=== PATIENT | female | born 1955 | race Caucasian/White ===

== ENCOUNTER 2020-04-07 12:41 | Day surgery (SDC) | payer MEDICARE, OTHER, SELFPAY ==
[2020-04-01 16:34] VITALS: BMI 37.8
--- NOTE | 2020-04-02 14:36 | HO.ANESPROP2 ---
Documented by User: Cherie Davidson 04/02/20 14:40 HPI - Anesthesia Eval Consult details Narrative: 64yo EGD: Barretts, GERD *multiple med allergies* PMFSH Past Medical History Medical History Arthritis Chronic back pain Depression GERD (gastroesophageal reflux disease) Hiatal hernia High cholesterol History of Koo's esophagus History of Meckel's diverticulum History of pernicious anemia Hx of Clostridium difficile infection Hx of hepatitis Hx of pancreatitis Hx of ventricular tachycardia IBS (irritable bowel syndrome) Lyme disease Migraine Multiple sclerosis Muscle spasm OCD (obsessive compulsive disorder) Surgical History Surgical History History of bowel resection History of ureter repair Hx of appendectomy Hx of breast biopsy Hx of cholecystectomy Hx of elbow surgery Hx of esophagogastroduodenoscopy Hx of hemorrhoidectomy Hx of hysterectomy Hx of removal of ovary Social History Social History Smoking Status: Current every day smoker Years Smoked: 40 Smoked in Last 30 Days: Yes Patient Interested in Nicotine Replacement: No Patient Given Instructions on How to Stop Smoking: Yes Date Education Initiated: 04/01/20 Second Hand Smoke Exposure: No Use of substances other than those prescribed or required for medical reasons: No Advance Directives: No Advance Directives Information Provided: No Advance Directives on File: No Recently lost weight without trying: No Meds Allergies Allergy/AdvReac Type Severity Reaction Status Date / Time scallops Allergy Severe HIVES, Unverified 04/01/20 15:53 THROAT CLOSING, VOMITING shrimp Allergy Severe HIVES, Unverified 04/01/20 15:53 THROAT CLOSES DIFF BREATHING celecoxib [From CELEBREX] Allergy Unknown HIVES Unverified 04/01/20 15:53 chlorzoxazone Allergy Unknown hives Verified 04/01/20 15:53 [Parafon Forte DSC] meperidine [Demerol] Allergy Unknown hives Verified 04/01/20 15:53 metoclopramide [Reglan] Allergy Unknown hives Verified 04/01/20 15:53 morphine [MORPHINE] Allergy Unknown HIVES Unverified 03/06/20 14:37 pentazocine [Talwin] Allergy Unknown hives Verified 04/01/20 15:53 Sulfa (Sulfonamide Allergy Unknown hives Verified 04/01/20 15:53 Antibiotics) sulfamethoxazole Allergy Unknown HIVES Unverified 04/01/20 15:53 [From BACTRIM] trimethoprim [From BACTRIM] Allergy Unknown HIVES Unverified 04/01/20 15:53 glatiramer (copolymer 1) Allergy Anaphylaxis Verified 04/01/20 15:54 [From Copaxone] ocrelizumab [From Ocrevus] Allergy Anaphylaxis Verified 04/01/20 15:55 DISOLVABLE SUTURES Allergy Unknown SWELLING Uncoded 04/01/20 15:53 Home Medications Medication Instructions Recorded Confirmed Type azithromycin 500 mg PO DAILY 04/01/20 04/01/20 History cyanocobalamin (vitamin B-12) 1,000 mcg IM QMONTH 04/01/20 04/01/20 History [B-12 Kit] diazepam [Valium] 10 mg PO BEDTIME 04/01/20 04/01/20 History diphenoxylate-atropine 1 tab PO DAILY PRN 04/01/20 04/01/20 History ergocalciferol (vitamin D2) 1,250 mcg PO QWEEK 04/01/20 04/01/20 History [Vitamin D2] nadolol [Corgard] 80 mg PO DAILY 04/01/20 04/01/20 History omeprazole 40 mg PO DAILY 04/01/20 04/01/20 History pregabalin [Lyrica] 150 mg PO BID 04/01/20 04/01/20 History sertraline [Zoloft] 100 mg PO DAILY 04/01/20 04/01/20 History simvastatin 40 mg PO DAILY 04/01/20 04/01/20 History tizanidine [Zanaflex] 8 mg PO BEDTIME 04/01/20 04/01/20 History Exam Exam Date and Time: April 02, 2020 1436 Height,Weight and Vital Signs: Height 5 ft 6 in Weight 106.141 kg Assessment and Plan Assessment Anesthesia Assessment: Chart Reviewed Documented by User: Hector Daniel 04/07/20 13:40 PMFSH Past Medical History Medical History Arthritis Chronic back pain Depression GERD (gastroesophageal reflux disease) Hiatal hernia High cholesterol History of Koo's esophagus History of Meckel's diverticulum History of pernicious anemia Hx of Clostridium difficile infection Hx of hepatitis Hx of pancreatitis Hx of ventricular tachycardia IBS (irritable bowel syndrome) Lyme disease Migraine Multiple sclerosis Muscle spasm OCD (obsessive compulsive disorder) Surgical History Surgical History History of bowel resection History of ureter repair Hx of appendectomy Hx of breast biopsy Hx of cholecystectomy Hx of elbow surgery Hx of esophagogastroduodenoscopy Hx of hemorrhoidectomy Hx of hysterectomy Hx of removal of ovary Social History Social History Smoking Status: Current every day smoker Years Smoked: 40 Smoked in Last 30 Days: Yes Patient Interested in Nicotine Replacement: No Patient Given Instructions on How to Stop Smoking: Yes Date Education Initiated: 04/01/20 Second Hand Smoke Exposure: No Use of substances other than those prescribed or required for medical reasons: No Advance Directives: No Advance Directives Information Provided: No Advance Directives on File: No Recently lost weight without trying: No Meds Allergies Allergy/AdvReac Type Severity Reaction Status Date / Time scallops Allergy Severe HIVES, Unverified 04/01/20 15:53 THROAT CLOSING, VOMITING shrimp Allergy Severe HIVES, Unverified 04/01/20 15:53 THROAT CLOSES DIFF BREATHING celecoxib [From CELEBREX] Allergy Unknown HIVES Unverified 04/01/20 15:53 chlorzoxazone Allergy Unknown hives Verified 04/01/20 15:53 [Parafon Forte DSC] meperidine [Demerol] Allergy Unknown hives Verified 04/01/20 15:53 metoclopramide [Reglan] Allergy Unknown hives Verified 04/01/20 15:53 morphine [MORPHINE] Allergy Unknown HIVES Unverified 03/06/20 14:37 pentazocine [Talwin] Allergy Unknown hives Verified 04/01/20 15:53 Sulfa (Sulfonamide Allergy Unknown hives Verified 04/01/20 15:53 Antibiotics) sulfamethoxazole Allergy Unknown HIVES Unverified 04/01/20 15:53 [From BACTRIM] trimethoprim [From BACTRIM] Allergy Unknown HIVES Unverified 04/01/20 15:53 glatiramer (copolymer 1) Allergy Anaphylaxis Verified 04/01/20 15:54 [From Copaxone] ocrelizumab [From Ocrevus] Allergy Anaphylaxis Verified 04/01/20 15:55 DISOLVABLE SUTURES Allergy Unknown SWELLING Uncoded 04/01/20 15:53 Home Medications Medication Instructions Recorded Confirmed Type azithromycin 500 mg PO DAILY 04/01/20 04/01/20 History cyanocobalamin (vitamin B-12) 1,000 mcg IM QMONTH 04/01/20 04/01/20 History [B-12 Kit] diazepam [Valium] 10 mg PO BEDTIME 04/01/20 04/01/20 History diphenoxylate-atropine 1 tab PO DAILY PRN 04/01/20 04/01/20 History ergocalciferol (vitamin D2) 1,250 mcg PO QWEEK 04/01/20 04/01/20 History [Vitamin D2] nadolol [Corgard] 80 mg PO DAILY 04/01/20 04/01/20 History omeprazole 40 mg PO DAILY 04/01/20 04/01/20 History pregabalin [Lyrica] 150 mg PO BID 04/01/20 04/01/20 History sertraline [Zoloft] 100 mg PO DAILY 04/01/20 04/01/20 History simvastatin 40 mg PO DAILY 04/01/20 04/01/20 History tizanidine [Zanaflex] 8 mg PO BEDTIME 04/01/20 04/01/20 History Exam Airway Mallampati Class: III TM Dist: >3cm Neck ROM: Full
[2020-04-07 13:02] VITALS: BP 114/37; PULSE 58; RESP 18; TEMP 36.2; O2SAT 96
[2020-04-07] MEDS: Lactated Ringers 1,000 ML 100 ML IVCONT (13:17)
[2020-04-07 14:14] VITALS: BP 102/54; PULSE 60; RESP 16; TEMP 36.7; O2SAT 97
--- NOTE | 2020-04-07 14:26 | PM.OP ---
Brief Operative Note Date of procedure: 04/07/20 Pre-op diagnosis: GERD,Koo's Post-op diagnosis: other (Same, hiatal hernia, gastric ulcer) Procedure: EGD with biopsies Surgeon: Rafat Fernandez Anesthesia: MAC Estimated blood loss (mL): 5.0 Pathology: other (A. EGJ at 35cm B. Gastric antrum) Condition: stable Disposition: PACU
--- NOTE | 2020-04-07 14:28 | PM.OP ---
Brief Operative Note Date of procedure: 04/07/20 Surgeon: Rafat Fernandez Estimated blood loss (mL): 5.0
[2020-04-07 14:29] VITALS: BP 125/71; PULSE 58; RESP 13; O2SAT 98
--- NOTE | 2020-04-07 14:37 | OP_ITS ---
SURGEON: Rafat Fernandez MD INDICATIONS: The patient presents for evaluation of gastroesophageal reflux and history of Koo's esophagus. Full consent has been obtained from her for that, including risks of bleeding and perforation. PREOPERATIVE DIAGNOSIS: POSTOPERATIVE DIAGNOSIS: PROCEDURE PERFORMED: Esophagogastroduodenoscopy with biopsy. ESTIMATED BLOOD LOSS: COMPLICATIONS: ANESTHESIA: Monitored anesthesia care. ASSISTANTS: SPECIMENS: PREOPERATIVE DIAGNOSES: Gastroesophageal reflux and history of Koo's esophagus. POSTOPERATIVE DIAGNOSES: Gastroesophageal reflux and history of Koo's esophagus, hiatal hernia, gastric ulcer, gastritis. DESCRIPTION OF PROCEDURE: The patient was placed in the left lateral decubitus position. The Olympus video gastroscope was passed in the posterior oropharynx and upper esophagus under direct vision. The scope was passed slowly to the distal esophagus. The gastroesophageal junction appeared at 35 cm. There was some slight irregularity consistent with reflux and probably small areas of Koo's mucosa. There was no esophagitis, mass, nor any sign of stricture. The scope entered the stomach. There was a small to moderate-sized hiatal hernia. The scope was advanced to the pylorus and duodenum cannulated the descending portion. The duodenum including the bulb appeared normal without mass or ulceration. The scope was withdrawn back into the stomach. The gastric antrum and body had some changes of a chronic appearing gastritis. In the body of the stomach along the greater curvature, was an approximately 6 to 8 mm ulcer, which appeared very benign and inactive. There was no visible vessel nor bleeding. There was good peristalsis. I did obtain multiple biopsies from the gastric antrum to inspect for H pylori. Given the benign appearance of the ulcer, biopsies were not obtained from it. The scope was retroflexed visualizing the proximal stomach carefully which appeared normal, without any sign of mass or ulceration. The scope was straightened. The scope was withdrawn back into the esophagus. Multiple biopsies were obtained from the gastroesophageal junction at 35 cm. Proximal to this, the esophageal mucosa appeared normal. Scope was withdrawn from the patient. She tolerated the procedure well and was returned to recovery area in stable condition. IMPRESSION: 1. Hiatal hernia, gastroesophageal reflux, history of Koo's esophagus. 2. Small gastric ulcer. 3. Gastritis, rule out Helicobacter pylori. PLAN: The results of the biopsies will be checked. Given the finding of the ulcer, I shall increase the omeprazole to 40 mg daily for 1 month and then back to just once a day thereafter for symptomatic relief of her reflux. She was taking some Aleve for her back pain and I did advise her to avoid all aspirin and NSAIDs going forward. Assuming the biopsies from the Koo's esophagus are negative for dysplasia, I would recommend a repeat upper endoscopy in 3 years. If Helicobacter pylori is present in the gastric biopsies, I would recommend treating that at some point as well. She did not want to do a screening colonoscopy, but will be doing a Cologuard test by her report and I did advise her to let me know the results of that. If it is positive, she would clearly need a colonoscopy. This has been discussed with her mother. MD PASCUAL Kelsey/CAMERON / [phone]
--- NOTE | 2020-04-07 15:04 | HO.POSTANES ---
Post Anesthesia Evaluation Post Anesthesia Evaluation Vital Signs: Vital Signs Temp Pulse Resp BP Pulse Ox 04/07/20 14:29 98.1 F 58 13 125/71 98 04/07/20 14:14 98.1 F 60 16 102/54 L 97 04/07/20 13:02 97.2 F 58 18 114/37 L 96 Anesthesia: Monitored Mental Status: Awake Pain Control: Satisfactory Nausea/Vomiting: None Hydration: Adequate Anesthesia-Related Issues: No Anes. Related Issues
== END 2020-04-07 15:04 | disposition home or self-care (01) ==
PROVIDERS: PCP Internal Medicine; Visit Provider Internal Medicine
PROC: 0DJ08ZZ Inspection of Upper Intestinal Tract, Via Natural or Artificial Opening Endoscopic (ICD-10-PCS; CPT 43235; principal; 2020-04-07 13:30)
DX: K21.9 Gastro-esophageal reflux disease without esophagitis (principal); K22.70 Barrett's esophagus without dysplasia; K44.9 Diaphragmatic hernia without obstruction or gangrene; K25.9 Gastric ulcer, unspecified as acute or chronic, without hemorrhage or perforation; K29.70 Gastritis, unspecified, without bleeding; K58.9 Irritable bowel syndrome, unspecified; Z90.49 Acquired absence of other specified parts of digestive tract; G35 Multiple sclerosis; Z79.899 Other long term (current) drug therapy; Z88.8 Allergy status to other drugs, medicaments and biological substances; Z88.2 Allergy status to sulfonamides; Z91.013 Allergy to seafood
CPT/HCPCS: 43239; 88305; 88342

== ENCOUNTER 2020-04-10 14:36 | Outpatient (REF) | payer MEDICARE, OTHER, SELFPAY ==
--- NOTE | 2020-04-10 14:43 | MM_ITS ---
EXAMINATION: MM SCREENING DIGITAL BREAST TOMOSYNTHESIS, BILATERAL CLINICAL INFORMATION: Screening. Asymptomatic. The lifetime risk of breast cancer based on the Tyrer-Cuzick Model is 4%. COMPARISON: Mammography: 04/03/2019, 03/23/2018 TECHNIQUE: Digital breast tomosynthesis is performed in both the craniocaudal and mediolateral oblique views along with computer-aided detection (CAD). Synthesized 2D images are generated from the tomosynthesis. FINDINGS: The breasts are almost entirely fatty (ACR BI-RADS breast composition Category a). There are no significant masses, abnormal calcifications, or other abnormalities. The axilla and skin contours are unremarkable. MM/MM tomosynthesis screening BI IMPRESSION: No mammographic evidence of malignancy. ASSESSMENT: BI-RADS 1: Negative RECOMMENDATION: Routine annual mammography screening. This patient's information was entered into a reminder system with a target due date for their next mammogram.
== END 2020-04-10 14:37 | disposition home or self-care (01) ==
LOC: HO.MAMMO 14:36
PROVIDERS: PCP Internal Medicine; Visit Provider Internal Medicine
DX: Z12.31 Encounter for screening mammogram for malignant neoplasm of breast (principal)
CPT/HCPCS: 77063; 77067

== ENCOUNTER 2021-04-22 12:59 | Outpatient (REF) | payer MEDICARE, OTHER, SELFPAY ==
--- NOTE | ~2021-04-22 | MM_ITS ---
EXAMINATION: MM SCREENING DIGITAL BREAST TOMOSYNTHESIS, BILATERAL CLINICAL INFORMATION: Screening. Asymptomatic. The lifetime risk of breast cancer based on the Tyrer-Cuzick Model is 7%. COMPARISON: Mammography: 04/10/2020, 04/03/2019, 03/23/2018 TECHNIQUE: Digital breast tomosynthesis is performed in both the craniocaudal and mediolateral oblique views along with computer-aided detection (CAD). Synthesized 2D images are generated from the tomosynthesis. FINDINGS: The breasts are almost entirely fatty (ACR BI-RADS breast composition Category a). There are no significant masses, abnormal calcifications, or other abnormalities. There is a stable macrolobulated nodule posterior 12:00 right breast similar to prior studies, possibly intraparenchymal node or fibroadenoma. There is no developing density. No significant changes. MM/MM tomosynthesis screening BI IMPRESSION: No mammographic evidence of malignancy. ASSESSMENT: BI-RADS 2: Benign RECOMMENDATION: Routine annual mammography screening. This patient's information was entered into a reminder system with a target due date for their next mammogram.
== END 2021-04-22 13:00 | disposition home or self-care (01) ==
LOC: HO.MAMMO 12:59
PROVIDERS: PCP Internal Medicine; Visit Provider Internal Medicine
DX: Z12.31 Encounter for screening mammogram for malignant neoplasm of breast (principal)
CPT/HCPCS: 77063; 77067

== ENCOUNTER 2022-04-28 13:02 | Outpatient (REF) | payer MEDICARE, SELFPAY ==
--- NOTE | ~2022-04-28 | MM_ITS ---
EXAMINATION: MM SCREENING DIGITAL BREAST TOMOSYNTHESIS, BILATERAL CLINICAL INFORMATION: Screening. Asymptomatic. COMPARISON: Mammography: 04/22/2021, 04/10/2020, 04/03/2019, 03/23/2018 TECHNIQUE: Digital breast tomosynthesis is performed in both the craniocaudal and mediolateral oblique views along with computer-aided detection (CAD). Synthesized 2D images are generated from the tomosynthesis. FINDINGS: The breasts are almost entirely fatty (ACR BI-RADS breast composition Category a). Background stromal markings are stable. No developing density or interval mass or architectural abnormality. No abnormal calcifications. There is a stable macrolobulated nodule or node posterior 12:00 right breast again seen similar to prior studies. The axilla and skin contours are unremarkable. MM/MM tomosynthesis screening BI IMPRESSION: No mammographic evidence of malignancy. ASSESSMENT: BI-RADS 2: Benign RECOMMENDATION: Routine annual mammography screening. This patient's information was entered into a reminder system with a target due date for their next mammogram.
== END 2022-04-28 13:03 | disposition home or self-care (01) ==
LOC: HO.MAMMO 13:02
PROVIDERS: PCP Internal Medicine; Visit Provider Internal Medicine
DX: Z12.31 Encounter for screening mammogram for malignant neoplasm of breast (principal)
CPT/HCPCS: 77063; 77067

== ENCOUNTER → 2022-10-22 14:05 | Outpatient (BNVA) | payer MEDICARE, SELFPAY | PROVIDERS: PCP Internal Medicine; Visit Provider Physician Assistant | DX: M48.061 Spinal stenosis, lumbar region without neurogenic claudication (principal) | CPT/HCPCS: 99202 ==

== ENCOUNTER 2022-12-02 09:25 | Day surgery (SDC) | payer MEDICARE, SELFPAY ==
[2022-11-11 11:02] VITALS: BMI 35.5
--- NOTE | 2022-12-01 09:19 | HO.ANESPROP2 ---
Documented by User: Cherie Davidson NP 12/01/22 09:21 HPI - Anesthesia Eval Consult details Narrative: 67yo F for Right Lumbar Laminectomy/disc/decompression L3-4 PCP cleared *Multiple allergies* PMFSH Active Problems Active Problems: All Active Problems (Updated 11/11/22 @ 09:50 by Arabella Billingsley, RN) Lumbar stenosis (Acute) Past Medical History Medical History (Updated 11/11/22 @ 09:50 by Arabella Billingsley RN) Arthritis Chronic back pain Depression GERD (gastroesophageal reflux disease) H/O Sjogren's disease Hiatal hernia High cholesterol History of Koo's esophagus History of Meckel's diverticulum History of pernicious anemia Hx of cardiac disorder Hx of Clostridium difficile infection Hx of hepatitis Hx of pancreatitis Hx of ventricular tachycardia IBS (irritable bowel syndrome) Lyme disease Migraine Multiple sclerosis Muscle spasm OCD (obsessive compulsive disorder) Pleural effusion Seizures Surgical History Surgical History (Updated 11/11/22 @ 09:50 by Arabella Billingsley RN) History of bowel resection History of tonsillectomy and adenoidectomy History of ureter repair Hx of appendectomy Hx of breast biopsy Hx of cholecystectomy Hx of elbow surgery Hx of esophagogastroduodenoscopy Hx of hemorrhoidectomy Hx of hysterectomy Hx of removal of ovary Social History Social History (Updated 04/08/22 @ 13:50 by María Hines [facility]) Are you a primary respiratory care technician to a significant other at home: No Do you presently have visiting nurse or other home services: No Patient Tobacco Use Status: Current everyday Tobacco user Tobacco use type: Cigarette Cigarettes Per Day: 6 Years Smoked: 40 Second Hand Smoke Exposure: No Use of substances other than those prescribed or required for medical reasons: Yes Substance Use Frequency: Occasionally Have you been hit, kicked, punched, or otherwise hurt by someone within the past year? 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 Allergy/AdvReac Type Severity Reaction Status Date / Time scallops Allergy Severe HIVES, Verified 10/22/22 14:29 THROAT CLOSING, VOMITING shrimp Allergy Severe HIVES, Verified 10/22/22 14:29 THROAT CLOSES DIFF BREATHING celecoxib [From CELEBREX] Allergy Unknown HIVES Verified 10/22/22 14:29 chlorzoxazone Allergy Unknown hives Verified 10/22/22 14:29 [Parafon Forte DSC] meperidine [Demerol] Allergy Unknown hives Verified 10/22/22 14:29 metoclopramide [Reglan] Allergy Unknown hives Verified 10/22/22 14:29 morphine [MORPHINE] Allergy Unknown HIVES Verified 10/22/22 14:29 pentazocine [Talwin] Allergy Unknown hives Verified 10/22/22 14:29 Sulfa (Sulfonamide Allergy Unknown hives Verified 10/22/22 14:29 Antibiotics) sulfamethoxazole Allergy Unknown HIVES Verified 10/22/22 14:29 [From BACTRIM] trimethoprim [From BACTRIM] Allergy Unknown HIVES Verified 10/22/22 14:29 glatiramer (copolymer 1) Allergy Anaphylaxis Verified 10/22/22 14:29 [From Copaxone] ocrelizumab [From Ocrevus] Allergy Anaphylaxis Verified 10/22/22 14:29 DISOLVABLE SUTURES Allergy Unknown SWELLING Uncoded 04/01/20 15:53 Home Medications Medication Instructions Recorded Confirmed Last Taken Type cyanocobalamin (vitamin B-12) 1,000 mcg IM QMONTH 04/01/20 11/11/22 Unknown History 1,000 mcg/mL injection kit diazepam 10 mg tablet (Valium) 5 mg PO BEDTIME 04/01/20 11/11/22 Unknown History diphenoxylate-atropine 2.5 1 tab PO DAILY PRN Diarrhea 04/01/20 11/11/22 Unknown History mg-0.025 mg tablet ergocalciferol (vitamin D2) 1,250 1,250 mcg PO QWEEK 04/01/20 11/11/22 Unknown History mcg (50,000 unit) capsule (Vitamin D2) nadolol 80 mg tablet (Corgard) 80 mg PO TID 04/01/20 11/11/22 Unknown History omeprazole 40 mg capsule,delayed 40 mg PO DAILY 04/01/20 11/11/22 Unknown History release pregabalin 150 mg capsule (Lyrica) 150 mg PO BID 04/01/20 11/11/22 Unknown History sertraline 100 mg tablet (Zoloft) 150 mg PO DAILY 04/01/20 11/11/22 Unknown History simvastatin 40 mg tablet 40 mg PO DAILY 04/01/20 11/11/22 Unknown History tizanidine 4 mg capsule (Zanaflex) 8 mg PO BEDTIME 04/01/20 11/11/22 Unknown History qarnewxuwf-jxkysejoxvznh-nndavfxt 1 tab PO Q4H PRN migraine 11/11/22 11/11/22 Unknown History 50 mg-325 mg-40 mg tablet dalfampridine 10 mg 10 mg PO 11/11/22 Unknown History tablet,extended release,12 hr (Ampyra) lutein 20 mg tablet 20 mg PO DAILY 11/11/22 11/11/22 Unknown History ondansetron 8 mg disintegrating 8 mg PO Q8H PRN Nausea 11/11/22 11/11/22 Unknown History tablet Exam Exam Date and Time: December 01, 2022 0919 Height,Weight and Vital Signs: Height 5 ft 6 in Weight 99.79 kg Pertinent Lab Results Pertinent Lab Results: Labs from outside facility 11/2022 CBC and BMP stable Narrative Narrative: EKG 11/2022 NSR Assessment and Plan Assessment Anesthesia Assessment: Chart Reviewed Documented by User: Hector Daniel MD 12/02/22 10:26 [facility] Past Medical History Medical History (Updated 11/11/22 @ 09:50 by Arabella Billingsley RN) Arthritis Chronic back pain Depression GERD (gastroesophageal reflux disease) H/O Sjogren's disease Hiatal hernia High cholesterol History of Koo's esophagus History of Meckel's diverticulum History of pernicious anemia Hx of cardiac disorder Hx of Clostridium difficile infection Hx of hepatitis Hx of pancreatitis Hx of ventricular tachycardia IBS (irritable bowel syndrome) Lyme disease Migraine Multiple sclerosis Muscle spasm OCD (obsessive compulsive disorder) Pleural effusion Seizures Family History Family history of problems with anesthesia: No Surgical History Surgical History (Updated 11/11/22 @ 09:50 by Arabella Billingsley RN) History of bowel resection History of tonsillectomy and adenoidectomy History of ureter repair Hx of appendectomy Hx of breast biopsy Hx of cholecystectomy Hx of elbow surgery Hx of esophagogastroduodenoscopy Hx of hemorrhoidectomy Hx of hysterectomy Hx of removal of ovary History of Problems with Anesthesia: No Social History Social History (Updated 04/08/22 @ 13:50 by María Hines [facility]) Are you a primary respiratory care technician to a significant other at home: No Do you presently have visiting nurse or other home services: No Patient Tobacco Use Status: Current everyday Tobacco user Tobacco use type: Cigarette Cigarettes Per Day: 6 Years Smoked: 40 Second Hand Smoke Exposure: No Use of substances other than those prescribed or required for medical reasons: Yes Substance Use Frequency: Occasionally Have you been hit, kicked, punched, or otherwise hurt by someone within the past year? 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 Allergy/AdvReac Type Severity Reaction Status Date / Time scallops Allergy Severe HIVES, Verified 10/22/22 14:29 THROAT CLOSING, VOMITING shrimp Allergy Severe HIVES, Verified 10/22/22 14:29 THROAT CLOSES DIFF BREATHING celecoxib [From CELEBREX] Allergy Unknown HIVES Verified 10/22/22 14:29 chlorzoxazone Allergy Unknown hives Verified 10/22/22 14:29 [Parafon Forte DSC] meperidine [Demerol] Allergy Unknown hives Verified 10/22/22 14:29 metoclopramide [Reglan] Allergy Unknown hives Verified 10/22/22 14:29 morphine [MORPHINE] Allergy Unknown HIVES Verified 10/22/22 14:29 pentazocine [Talwin] Allergy Unknown hives Verified 10/22/22 14:29 Sulfa (Sulfonamide Allergy Unknown hives Verified 10/22/22 14:29 Antibiotics) sulfamethoxazole Allergy Unknown HIVES Verified 10/22/22 14:29 [From BACTRIM] trimethoprim [From BACTRIM] Allergy Unknown HIVES Verified 10/22/22 14:29 glatiramer (copolymer 1) Allergy Anaphylaxis Verified 10/22/22 14:29 [From Copaxone] ocrelizumab [From Ocrevus] Allergy Anaphylaxis Verified 10/22/22 14:29 DISOLVABLE SUTURES Allergy Unknown SWELLING Uncoded 04/01/20 15:53 Home Medications Medication Instructions Recorded Confirmed Last Taken Type cyanocobalamin (vitamin B-12) 1,000 mcg IM QMONTH 04/01/20 11/11/22 Unknown History 1,000 mcg/mL injection kit diazepam 10 mg tablet (Valium) 5 mg PO BEDTIME 04/01/20 11/11/22 Unknown History diphenoxylate-atropine 2.5 1 tab PO DAILY PRN Diarrhea 04/01/20 11/11/22 Unknown History mg-0.025 mg tablet ergocalciferol (vitamin D2) 1,250 1,250 mcg PO QWEEK 04/01/20 11/11/22 Unknown History mcg (50,000 unit) capsule (Vitamin D2) nadolol 80 mg tablet (Corgard) 80 mg PO TID 04/01/20 11/11/22 Unknown History omeprazole 40 mg capsule,delayed 40 mg PO DAILY 04/01/20 11/11/22 Unknown History release pregabalin 150 mg capsule (Lyrica) 150 mg PO BID 04/01/20 11/11/22 Unknown History sertraline 100 mg tablet (Zoloft) 150 mg PO DAILY 04/01/20 11/11/22 Unknown History simvastatin 40 mg tablet 40 mg PO DAILY 04/01/20 11/11/22 Unknown History tizanidine 4 mg capsule (Zanaflex) 8 mg PO BEDTIME 04/01/20 11/11/22 Unknown History iesiozbcsn-wqneuuonfrahf-mwezjcxe 1 tab PO Q4H PRN migraine 11/11/22 11/11/22 Unknown History 50 mg-325 mg-40 mg tablet dalfampridine 10 mg 10 mg PO 11/11/22 Unknown History tablet,extended release,12 hr (Ampyra) lutein 20 mg tablet 20 mg PO DAILY 11/11/22 11/11/22 Unknown History ondansetron 8 mg disintegrating 8 mg PO Q8H PRN Nausea 11/11/22 11/11/22 Unknown History tablet Exam Airway Mallampati Class: II TM Dist: >3cm Neck ROM: Limited Assessment and Plan Assessment Anesthesia Assessment: Anesthesia Plan Discussed and Smoking Cess. Discussed Final Anesthetic Review Family History of Problems with Anesthesia: No History of Problems with Anesthesia: No NPO: Yes ASA Class: III Final Preanesthetic Review: No Changes in Pt Med Stat, Meds/Allgs Chart Reviewed, Consent Obtained/Reviewed and Anes Risks/Benef Reviewed Patient Risk: Intermediate Procedure Risk: Intermediate Anesthetic Plan Anesthetic Plan: GA Disposition: Standard PACU
[2022-12-02] VITALS (9 sets, daily range): BP systolic 104–141; BP diastolic 41–64; PULSE 55–62; RESP 14–18; TEMP 36.2–36.5; O2SAT 94–99
--- NOTE | ~2022-12-02 | FL_ITS ---
EXAMINATION: XR FLUOROSCOPY WITH IMAGES CLINICAL INFORMATION: Lumbar laminectomy/decompression right L3-L4. COMPARISON: None available. TECHNIQUE: Fluoroscopy Supervised By: Dr. William. Fluoroscopy Time: 0.1 minutes. Cumulative Dose: 8.43 mGy. DAP: 1.50 Gycm2. Images: 3. FINDINGS: Lateral views of the lumbar spine. Image demonstrates posterior marker placement at the L3-L4 disc space. FL/FL guidance in OR IMPRESSION: Fluoroscopy guidance for spine surgery.
[2022-12-02] MEDS: Lactated Ringers 1,000 ML 100 ML IVCONT (10:48)
--- NOTE | 2022-12-02 12:07 | MHC.SHP ---
Pre-Procedural Eval Section A Date of Service: 12/02/22 The patient is an INPATIENT: No The History & Physical has been completed within 30 days and I have reviewed it.: No Section B Chief Complaint: Spinal stenosis, lumbar region without neurogenic Relevant Family History (Specify if Yes): No Relevant Social History: None Present Medications: see Short Stay Collaborative assessment Medical History: No relevant PMH History of Previous Operations: No relevant previous surgery Allergies: Allergies Allergy/AdvReac Type Severity Reaction Status Date / Time scallops Allergy Severe HIVES, Verified 10/22/22 14:29 THROAT CLOSING, VOMITING shrimp Allergy Severe HIVES, Verified 10/22/22 14:29 THROAT CLOSES DIFF BREATHING celecoxib [From CELEBREX] Allergy Unknown HIVES Verified 10/22/22 14:29 chlorzoxazone Allergy Unknown hives Verified 10/22/22 14:29 [Parafon Forte DSC] meperidine [Demerol] Allergy Unknown hives Verified 10/22/22 14:29 metoclopramide [Reglan] Allergy Unknown hives Verified 10/22/22 14:29 morphine [MORPHINE] Allergy Unknown HIVES Verified 10/22/22 14:29 pentazocine [Talwin] Allergy Unknown hives Verified 10/22/22 14:29 Sulfa (Sulfonamide Allergy Unknown hives Verified 10/22/22 14:29 Antibiotics) sulfamethoxazole Allergy Unknown HIVES Verified 10/22/22 14:29 [From BACTRIM] trimethoprim [From BACTRIM] Allergy Unknown HIVES Verified 10/22/22 14:29 glatiramer (copolymer 1) Allergy Anaphylaxis Verified 10/22/22 14:29 [From Copaxone] ocrelizumab [From Ocrevus] Allergy Anaphylaxis Verified 10/22/22 14:29 DISOLVABLE SUTURES Allergy Unknown SWELLING Uncoded 04/01/20 15:53 Review of Systems Sugical H&P ROS: Negative: Constitution, Cardiovascular, Respiratory, Neurological, Psychiatric, Hem-Onc, Allergic/Immunologic, Gastrointestinal, Genitourinary, Musculoskeletal, Integumentary, Endocrine and Eyes/Ears/Nose/Throat Exam Surgical H&P Exam: Not Evaluated: HEENT, Not Evaluated: Heart, Not Evaluated: Lungs, Not Evaluated: Extremities, Not Evaluated: Abdomen, Not Evaluated: Skin and Not Evaluated: Neurological Plan Diagnosis/Plan: Unchanged I have reviewed the history and physical and performed a pertinent physical examination on my patient. No changes have occurred unless specified. Right L3-4 decompression diskectomy Time Spent With Patient Time: Total time managing care of this patient today _10___ minutes.
--- NOTE | 2022-12-02 14:15 | P.OP_ITS ---
Operative Note Operative Note Date of Service: 12/02/22 Narrative: Preoperative diagnosis: Right lumbar radiculopathy due to disc herniation Postoperative diagnosis: Same Procedure: Right L3-4 lumbar microdiskectomy with microscope Surgeon: Selwyn William MD, PhD Suture Polisher: tonia Dwyer Patient is suffering from a right lumbar radiculopathy. An MRI shows a small disc herniation at L3-4 compressing the right L4 nerve root.. The patient was offered a lumbar microdiskectomy to decompress the nerve root. The procedure complications were explained. The patient was consented. The patient was brought to the operating room and endotracheally intubated. The patient was turned in a prone position on the Awais frame. Prepping and draping was done followed by time-out. A mid lumbar incision was made followed by release of the paravertebral muscles on the right side to expose the L3-4 interspace. An intraoperative x-rays obtained to confirm the correct level. The microscope was brought in. A L3-4 laminotomy was done followed by opening of the flavum l igament. The L4 nerve root was identified and retracted medially to expose the L3-4 disc space. I performed a laminotomy and pushed disc material into the disc space followed by removal of this material. A large disc herniation was not found, which his conform the MRI. The nerve root was well decompressed though. Hemostasis was done. The microscope was removed. Marcaine was injected intramuscularly.The incision was closed in two layers. Steri-Strips used to approximate seizure. An op-site were taken there was used to cover the incision. All sponge and needle counts were correct. Patient was extubated and transported in stable condition to recovery room. this procedure was done with the aid of a physician respiratory care assistant who performed the initial exposure until the microscope was brought in and performed the closure of the incision. Anesthesia: General Blood loss: 30 mL Complications: None Specimen: None Disposition: Discharge home
--- NOTE | 2022-12-02 14:18 | PM.DS ---
DS: Providers Provider Date of Service: 12/02/22 Date of discharge: 12/02/22 Primary care physician: Anusha Barry MD Attending physician on admission: Selwyn William DS: Diagnosis Discharge Diagnosis (1) Lumbar stenosis: Status: Acute DS: Summary Time Spent with Patient Time attestation: Total time managing care of this patient today ____ minutes. Discharge coordination time: Less than 30 minutes Quality: Safe Use of Opioids Does Pt have an Active Cancer Diagnosis on the Problem List?: No Quality: Stroke Does the patient have a stroke diagnosis?: No Physical Exam Vital Signs: Vital Signs: Last Vital Signs Temp 97.7 F 12/02/22 10:48 Pulse 55 12/02/22 10:48 Resp 16 12/02/22 10:48 BP 104/52 L 12/02/22 10:48 Pulse Ox 99 12/02/22 10:48 O2 Del Method Room Air 12/02/22 10:48 BMI result Body Mass Index 35.5 Discharge Plan Discharge Patient Disposition: Home, Self-Care Referrals: Anusah Barry MD [Primary Care Provider] - 1 Week Discharge Medications: New oxycodone-acetaminophen [Percocet] 5-325 mg tablet 1 tab PO Q6H Qty: 20 0RF Rx Instructions: Partial Fill upon patient request. Continued nadolol [Corgard] 80 mg Tablet 80 mg PO TID sertraline [Zoloft] 100 mg Tablet 150 mg PO DAILY diphenoxylate-atropine 2.5-0.025 mg Tablet 1 tab PO DAILY PRN (Reason: Diarrhea) omeprazole 40 mg Capsule,Delayed Release(Dr/Ec) 40 mg PO DAILY simvastatin 40 mg Tablet 40 mg PO DAILY ergocalciferol (vitamin D2) [Vitamin D2] 1,250 mcg (50,000 unit) Capsule 1,250 mcg PO QWEEK Rx Instructions: diazepam [Valium] 10 mg Tablet 5 mg PO BEDTIME tizanidine [Zanaflex] 4 mg Capsule 8 mg PO BEDTIME pregabalin [Lyrica] 150 mg Capsule 150 mg PO BID cyanocobalamin (vitamin B-12) 1,000 mcg/mL Kit 1,000 mcg IM QMONTH ondansetron 8 mg Tablet,Disintegrating 8 mg PO Q8H PRN (Reason: Nausea) gbyxlrpuqp-mgpxkxdgywohe-skex 50-325-40 mg tablet 1 tab PO Q4H PRN (Reason: migraine) dalfampridine [Ampyra] 10 mg Tablet Extended Release 12 Hr 10 mg PO lutein 20 mg Tablet 20 mg PO DAILY Rx Instructions: give with meal/snack Discharge Orders: Discharge Order (Routine); Ordered 12/02/22 Ordered By: Selwyn William Activity Restrictions/Additional Instructions: After your spinal surgery we ask you to observe the following restrictions/guidelines: Activity: It is normal to feel some discomfort as you increase your activity, but that will improve with time. We ask you avoid heavy lifting or acitivities that cause pain. As a general rule, 8lbs is a safe limit for lifting right after surgery. Walk as much as you feel comfortable but not to exhaustion. You will feel extra tired the first few days after surgery. Stay well hydrated. It is OK to walk up and down stairs You may return to driving when you are off narcotics (such as vicodin, oxycodone, dilaudid, etc), and you are back to normal functional capacity. If you have any concerns please check with office before driving. Return to work is specific to each patient and each surgery, so please speak with your doctor/PA at first follow up. Please bring paperwork such as FMLA at that time if you need it filled out. Medications: We will give you a short supply of narcotics after surgery (usually one weeks worth). If you need more please call the office but do not use more than prescribed. You will need to give our office 48 hours notice if you need narcotics refilled and we do not fill narcotics on weekends or evenings. If you are on a narcotic, it is a good idea to take a stool softener such as colace or senna to avoid constipation If you take blood thinner such as aspirin, Plavix, Coumadin, Effient, Eliquis etc for conditions such as Afib, DVT, Pulmonary embolus, coronary disease, stents etc please speak with your surgeon about specific details as to when you can resume these medications. You can resume NSAIDs on post op day 1 (eg: Motrin, Naproxen, etc). Follow up: Please call the office, , after surgery to arrange a 3 week follow up for wound check. Wound Care: You may remove your dressing on the first day after surgery. You may leave open to air. Please do not remove the steri strips underneath. they will fall off on their own in one week. IT IS NORMAL FOR THE WOUND TO OOZE OR BE BLOODY FOR A FEW DAYS AFTER SURGERY. IF THIS HAPPENS JUST PLACE NEW DRESSING OVER IT TO AVOID STAINING CLOTHES. You may shower on post op day # 1 We ask that you do not let the water soak the wound. If it does get wet, just towel dry lightly. Please do not scrub your incision or place any type of chemical/ointment on the wound. No tub baths, pools or jacuzzis for one month. If you have any leaking or redness from your wound, or fevers, please call office
--- NOTE | 2022-12-02 14:25 | PM.DS ---
DS: Providers Provider Date of Service: 12/02/22 Primary care physician: Anusha Barry MD DS: Diagnosis Discharge Diagnosis (1) Lumbar stenosis: Status: Acute DS: Summary Time Spent with Patient Time attestation: Total time managing care of this patient today ____ minutes. Discharge coordination time: Less than 30 minutes Quality: Safe Use of Opioids Does Pt have an Active Cancer Diagnosis on the Problem List?: No Quality: Stroke Does the patient have a stroke diagnosis?: No Physical Exam Vital Signs: Vital Signs: Last Vital Signs Temp 97.7 F 12/02/22 10:48 Pulse 55 12/02/22 10:48 Resp 16 12/02/22 10:48 BP 104/52 L 12/02/22 10:48 Pulse Ox 99 12/02/22 10:48 O2 Del Method Room Air 12/02/22 10:48 BMI result Body Mass Index 35.5 Discharge Plan Discharge Patient Disposition: Home, Self-Care Referrals: Anusha Barry MD [Primary Care Provider] - 1 Week Discharge Medications: Continued nadolol [Corgard] 80 mg Tablet 80 mg PO TID sertraline [Zoloft] 100 mg Tablet 150 mg PO DAILY diphenoxylate-atropine 2.5-0.025 mg Tablet 1 tab PO DAILY PRN (Reason: Diarrhea) omeprazole 40 mg Capsule,Delayed Release(Dr/Ec) 40 mg PO DAILY simvastatin 40 mg Tablet 40 mg PO DAILY ergocalciferol (vitamin D2) [Vitamin D2] 1,250 mcg (50,000 unit) Capsule 1,250 mcg PO QWEEK Rx Instructions: diazepam [Valium] 10 mg Tablet 5 mg PO BEDTIME tizanidine [Zanaflex] 4 mg Capsule 8 mg PO BEDTIME pregabalin [Lyrica] 150 mg Capsule 150 mg PO BID cyanocobalamin (vitamin B-12) 1,000 mcg/mL Kit 1,000 mcg IM QMONTH ondansetron 8 mg Tablet,Disintegrating 8 mg PO Q8H PRN (Reason: Nausea) hhlciutmiy-duofcgpvqvujy-qena 50-325-40 mg tablet 1 tab PO Q4H PRN (Reason: migraine) dalfampridine [Ampyra] 10 mg Tablet Extended Release 12 Hr 10 mg PO lutein 20 mg Tablet 20 mg PO DAILY Rx Instructions: give with meal/snack No Action oxycodone-acetaminophen [Percocet] 5-325 mg tablet 1 tab PO Q6H Qty: 40 0RF Rx Instructions: Partial Fill upon patient request. Discharge Orders: Discharge Order (Routine); Ordered 12/02/22 Ordered By: Selwyn William Activity Restrictions/Additional Instructions: After your spinal surgery we ask you to observe the following restrictions/guidelines: Activity: It is normal to feel some discomfort as you increase your activity, but that will improve with time. We ask you avoid heavy lifting or acitivities that cause pain. As a general rule, 8lbs is a safe limit for lifting right after surgery. Walk as much as you feel comfortable but not to exhaustion. You will feel extra tired the first few days after surgery. Stay well hydrated. It is OK to walk up and down stairs You may return to driving when you are off narcotics (such as vicodin, oxycodone, dilaudid, etc), and you are back to normal functional capacity. If you have any concerns please check with office before driving. Return to work is specific to each patient and each surgery, so please speak with your doctor/PA at first follow up. Please bring paperwork such as FMLA at that time if you need it filled out. Medications: We will give you a short supply of narcotics after surgery (usually one weeks worth). If you need more please call the office but do not use more than prescribed. You will need to give our office 48 hours notice if you need narcotics refilled and we do not fill narcotics on weekends or evenings. If you are on a narcotic, it is a good idea to take a stool softener such as colace or senna to avoid constipation If you take blood thinner such as aspirin, Plavix, Coumadin, Effient, Eliquis etc for conditions such as Afib, DVT, Pulmonary embolus, coronary disease, stents etc please speak with your surgeon about specific details as to when you can resume these medications. You can resume NSAIDs on post op day 1 (eg: Motrin, Naproxen, etc). Follow up: Please call the office, , after surgery to arrange a 3 week follow up for wound check. Wound Care: You may remove your dressing on the first day after surgery. You may leave open to air. Please do not remove the steri strips underneath. they will fall off on their own in one week. IT IS NORMAL FOR THE WOUND TO OOZE OR BE BLOODY FOR A FEW DAYS AFTER SURGERY. IF THIS HAPPENS JUST PLACE NEW DRESSING OVER IT TO AVOID STAINING CLOTHES. You may shower on post op day # 1 We ask that you do not let the water soak the wound. If it does get wet, just towel dry lightly. Please do not scrub your incision or place any type of chemical/ointment on the wound. No tub baths, pools or jacuzzis for one month. If you have any leaking or redness from your wound, or fevers, please call office Discharge Date/Time: 12/02/22 16:28
[2022-12-02] MEDS: ondansetron HCL 4 MG/2 ML VIAL IVPUSH (14:39)
--- NOTE | 2022-12-02 15:30 | PC.NURSE ---
Patient states she is having 8/10 lower back pain and has 8/10 lower back pain at baseline. Patient states she does not want any pain medication and says that all she takes is tylenol at home. JESSICA Burdick notified of patients pain level who states this pain is normal for this procedure. JESSICA Burdick to come to PACU to assess/ talk to patient. Patient repeating that she wants to leave
== END 2022-12-02 16:28 | disposition home or self-care (01) ==
PROVIDERS: PCP Internal Medicine; Visit Provider Neurological Surgery
PROC: (CPT 63030; principal; 2022-12-02 10:50)
DX: M48.061 Spinal stenosis, lumbar region without neurogenic claudication (principal); G89.29 Other chronic pain; M54.50 Low back pain, unspecified; G35 Multiple sclerosis; I49.5 Sick sinus syndrome; E78.00 Pure hypercholesterolemia, unspecified; D51.0 Vitamin B12 deficiency anemia due to intrinsic factor deficiency; M85.80 Other specified disorders of bone density and structure, unspecified site; G43.909 Migraine, unspecified, not intractable, without status migrainosus; F32.A Depression, unspecified; Z79.899 Other long term (current) drug therapy; Z86.19 Personal history of other infectious and parasitic diseases; Z88.2 Allergy status to sulfonamides; Z88.8 Allergy status to other drugs, medicaments and biological substances; F12.90 Cannabis use, unspecified, uncomplicated; F17.210 Nicotine dependence, cigarettes, uncomplicated
CPT/HCPCS: 63030; J0131; J0690; J1100; J2250; J2405; J3010

== ENCOUNTER → 2022-12-24 15:48 | Outpatient (BNVA) | payer MEDICARE, SELFPAY | PROVIDERS: PCP Internal Medicine; Visit Provider Physician Assistant ==

== ENCOUNTER 2023-02-04 15:00 | Outpatient (AMB) | payer MEDICARE, SELFPAY ==
--- NOTE | 2023-02-04 15:05 | A.SPINEOV_ITS ---
Intake Intake Visit Reasons: 2nd post op Intake Note: Ms. Smith is here today for her 2nd post-op visit. Audio Visual Aids Director Required: No Allergies scallops Allergy (Severe, Verified 10/22/22 14:29) HIVES, THROAT CLOSING, VOMITING shrimp Allergy (Severe, Verified 10/22/22 14:29) HIVES, THROAT CLOSES DIFF BREATHING celecoxib [From CELEBREX] Allergy (Unknown, Verified 10/22/22 14:29) HIVES chlorzoxazone [Parafon Forte DSC] Allergy (Unknown, Verified 10/22/22 14:29) hives meperidine [Demerol] Allergy (Unknown, Verified 10/22/22 14:29) hives metoclopramide [Reglan] Allergy (Unknown, Verified 10/22/22 14:29) hives morphine [MORPHINE] Allergy (Unknown, Verified 10/22/22 14:29) HIVES pentazocine [Talwin] Allergy (Unknown, Verified 10/22/22 14:29) hives Sulfa (Sulfonamide Antibiotics) Allergy (Unknown, Verified 10/22/22 14:29) hives sulfamethoxazole [From BACTRIM] Allergy (Unknown, Verified 10/22/22 14:29) HIVES trimethoprim [From BACTRIM] Allergy (Unknown, Verified 10/22/22 14:29) HIVES glatiramer (copolymer 1) [From Copaxone] Allergy (Verified 10/22/22 14:29) Anaphylaxis ocrelizumab [From Ocrevus] Allergy (Verified 10/22/22 14:29) Anaphylaxis DISOLVABLE SUTURES Allergy (Unknown, Uncoded 04/01/20 15:53) SWELLING Assessment & Plan Assessment & Plan (1) Lumbar stenosis: Code(s): M48.061 - Spinal stenosis, lumbar region without neurogenic claudication Plan Mrs. Smith is here as a follow-up from her right L3-4 lumbar decompression 9 weeks ago. She is overall very pleased with the results, and is stating that she no longer has any right-sided foot-drop, right-sided leg pain, or low back pain in the distribution that was previously discussed. She also reports no radicular symptoms. She is not taking narcotic pain medication any longer, and states that the only thing he takes is Tylenol/ibuprofen. She does report that she is a new issue above the level in which she had surgery completed, but is unsure if it is related to the pain that she felt postoperatively. She reports that this is newer mid-back pain. She feels she may need to have the ?same surgery done at a higher level. On exam she has 5/5 quadriceps strength, 5/5 hip flexion, 4/5 knee extension (pain limiting), 5/5 dorsiflexion, 5/5 EHL, 5/5 plantar flexion. This patient case was discussed with JESSICA Hauser who has previously seen this patient. He reported that if she is continuing to have pain she can be scheduled for follow-up MRI. It was suggested to her that we see her again in 6 weeks to see if she is continuing to have new pain or if this is just residual pain from the surgery. At which point if she is continuing to have pain we can order a follow-up MRI to evaluate for any adjacent segment issues. Total amount of time spent in this visit was 20 minutes in discussion of symptoms, patient evaluation and subsequent plan of care Kevin William MD,PhD [facility] Coding Level of Care Code Est Pt Level 3 (29992) Diagnoses Lumbar stenosis M48.061
== END 2023-02-04 15:37 | disposition home or self-care (01) ==
PROVIDERS: PCP Internal Medicine; Visit Provider Physician Assistant
DX: M48.061 Spinal stenosis, lumbar region without neurogenic claudication (principal)
CPT/HCPCS: 99024

== ENCOUNTER → 2023-02-04 15:00 | Outpatient (BNVA) | payer MEDICARE, SELFPAY | PROVIDERS: PCP Internal Medicine; Visit Provider Physician Assistant | DX: Z09 Encounter for follow-up examination after completed treatment for conditions other than malignant neoplasm (principal); M48.061 Spinal stenosis, lumbar region without neurogenic claudication | CPT/HCPCS: 99212 ==

== ENCOUNTER 2023-03-18 15:06 | Outpatient (AMB) | payer MEDICARE, SELFPAY ==
--- NOTE | 2023-03-18 14:25 | HO.SPINEOV ---
Intake Intake Visit Reasons: 6 week follow up Allergies scallops Allergy (Severe, Verified 10/22/22 14:29) HIVES, THROAT CLOSING, VOMITING shrimp Allergy (Severe, Verified 10/22/22 14:29) HIVES, THROAT CLOSES DIFF BREATHING celecoxib [From CELEBREX] Allergy (Unknown, Verified 10/22/22 14:29) HIVES chlorzoxazone [Parafon Forte DSC] Allergy (Unknown, Verified 10/22/22 14:29) hives meperidine [Demerol] Allergy (Unknown, Verified 10/22/22 14:29) hives metoclopramide [Reglan] Allergy (Unknown, Verified 10/22/22 14:29) hives morphine [MORPHINE] Allergy (Unknown, Verified 10/22/22 14:29) HIVES pentazocine [Talwin] Allergy (Unknown, Verified 10/22/22 14:29) hives Sulfa (Sulfonamide Antibiotics) Allergy (Unknown, Verified 10/22/22 14:29) hives sulfamethoxazole [From BACTRIM] Allergy (Unknown, Verified 10/22/22 14:29) HIVES trimethoprim [From BACTRIM] Allergy (Unknown, Verified 10/22/22 14:29) HIVES glatiramer (copolymer 1) [From Copaxone] Allergy (Verified 10/22/22 14:29) Anaphylaxis ocrelizumab [From Ocrevus] Allergy (Verified 10/22/22 14:29) Anaphylaxis DISOLVABLE SUTURES Allergy (Unknown, Uncoded 04/01/20 15:53) SWELLING Assessment & Plan Assessment & Plan (1) Status post lumbar spine surgery for decompression of spinal cord: Code(s): Z98.890 - Other specified postprocedural states Plan Procedure: Right L3-4 lumbar decompression Olivia comes in today for her 3rd follow-up appointment after having L3-4 lumbar decompression surgery in November of this year. She was seen 6 weeks ago by this entry writer for her second post-operative visit. She initially reported that she was very satisfied with her surgery in grateful that it began to produce relief of her pain. She reported that she no longer has any right-sided foot-drop, or right-sided leg pain. Please see previous note for physical exam details. She now states that she is beginning to have some return of radicular symptoms down her posterior thigh wrapping around involving the anterior knee. She states that her back pain originates at the center of her back near the L3 level and radiates out the lateral sides of her back before involving the thigh. She is unsure if she has had this back pain previously, and states that she may have not noticed as much due to the symptoms she was having from the L3-4 space. Of note her previous MRI read does extensively discussed issues with the superior segments of the lumbar spine, citing spinal stenosis, disc bulge, and compression on exiting nerve roots. As previously discussed with JESSICA Hauser the patient will be sent for a lumbar spine MRI to evaluate for any changes in the neuro anatomy surrounding the lumbar area after her previous surgery. We can give her a call to follow-up after we review her MRI results. Total amount of time spent in this visit was 20 minutes in discussion of symptoms, MRI lumbar spine imaging results, new MRI orders, & subsequent plan of care. Kevin William MD,PhD [facility] Orders: Orders MR lumbar spine wo con Today Z98.890 - Other specified postprocedural states Coding Level of Care Code Est Pt Level 3 (04722) Diagnoses Status post lumbar spine surgery for decompression of spinal cord Z98.890
== END 2023-03-18 15:29 | disposition home or self-care (01) ==
PROVIDERS: PCP Internal Medicine; Visit Provider Physician Assistant
DX: Z98.890 Other specified postprocedural states (principal)
CPT/HCPCS: 99213

== ENCOUNTER → 2023-03-18 15:06 | Outpatient (BNVA) | payer MEDICARE, SELFPAY | PROVIDERS: PCP Internal Medicine; Visit Provider Physician Assistant | DX: Z98.890 Other specified postprocedural states (principal) | CPT/HCPCS: 99212 ==

== ENCOUNTER → 2023-05-04 13:30 | Outpatient (BNV) | payer MEDICARE, SELFPAY | PROVIDERS: PCP Internal Medicine; Visit Provider Radiology Diagnostic Radiology | DX: Z12.31 Encounter for screening mammogram for malignant neoplasm of breast (principal) | CPT/HCPCS: 77063; 77067 ==

== ENCOUNTER 2023-05-04 13:45 | Outpatient (REF) | payer MEDICARE, SELFPAY ==
--- NOTE | ~2023-05-04 | MM_ITS ---
EXAMINATION: MM SCREENING DIGITAL BREAST TOMOSYNTHESIS, BILATERAL CLINICAL INFORMATION: Screening. Asymptomatic. COMPARISON: Mammography: This study is compared with prior exams dating back to 2018. TECHNIQUE: Digital breast tomosynthesis is performed in both the craniocaudal and mediolateral oblique views along with computer-aided detection (CAD). Synthesized 2D images are generated from the tomosynthesis. FINDINGS: The breasts are almost entirely fatty (ACR BI-RADS breast composition Category a). There is an approximately 23 mm area of fatty focal asymmetry involving the deep surface of the right nipple and immediate subareolar region. This is the mammographic appearance of a lipoma versus herniation of fat into the immediate subareolar region, possibly caused by the compression involved in obtaining the mammograms. This finding was present dating back to the 2016 mammogram. This is a benign finding. In the left breast, there are no significant masses, abnormal calcifications, or other abnormalities. MM/MM tomosynthesis screening BI IMPRESSION: No mammographic evidence of malignancy. ASSESSMENT: BI-RADS BI-RADS 2 - Benign Findings RECOMMENDATION: Routine annual mammography screening. 1 year F/U This examination should not preclude the clinical evaluation of a suspicious palpable abnormality. This patient's information was entered into a reminder system with a target due date for their next mammogram.
== END 2023-05-04 13:46 | disposition home or self-care (01) ==
LOC: HO.MAMMO 13:45
PROVIDERS: PCP Internal Medicine; Visit Provider Internal Medicine
DX: Z12.31 Encounter for screening mammogram for malignant neoplasm of breast (principal)
CPT/HCPCS: 77063; 77067

== ENCOUNTER 2023-09-07 14:20 | Outpatient (AMB) | payer MEDICARE, MEDICAID, SELFPAY ==
--- NOTE | 2023-09-07 14:39 | A.SPINEOV_ITS ---
Intake Intake Visit Reasons: back pain Intake Note: Ms. Smith is here today c/o back pain In Flight Crew Member Required: No Allergies scallops Allergy (Severe, Verified 10/22/22 14:29) HIVES, THROAT CLOSING, VOMITING shrimp Allergy (Severe, Verified 10/22/22 14:29) HIVES, THROAT CLOSES DIFF BREATHING celecoxib [From CELEBREX] Allergy (Unknown, Verified 10/22/22 14:29) HIVES chlorzoxazone [Parafon Forte DSC] Allergy (Unknown, Verified 10/22/22 14:29) hives meperidine [Demerol] Allergy (Unknown, Verified 10/22/22 14:29) hives metoclopramide [Reglan] Allergy (Unknown, Verified 10/22/22 14:29) hives morphine [MORPHINE] Allergy (Unknown, Verified 10/22/22 14:29) HIVES pentazocine [Talwin] Allergy (Unknown, Verified 10/22/22 14:29) hives Sulfa (Sulfonamide Antibiotics) Allergy (Unknown, Verified 10/22/22 14:29) hives sulfamethoxazole [From BACTRIM] Allergy (Unknown, Verified 10/22/22 14:29) HIVES trimethoprim [From BACTRIM] Allergy (Unknown, Verified 10/22/22 14:29) HIVES glatiramer (copolymer 1) [From Copaxone] Allergy (Verified 10/22/22 14:29) Anaphylaxis ocrelizumab [From Ocrevus] Allergy (Verified 10/22/22 14:29) Anaphylaxis DISOLVABLE SUTURES Allergy (Unknown, Uncoded 04/01/20 15:53) SWELLING Assessment & Plan Assessment & Plan (1) Status post lumbar spine surgery for decompression of spinal cord: Code(s): Z98.890 - Other specified postprocedural states Plan Olivia is a pleasant 68-year-old female comes in today for a follow-up after being seen previously in our office for a continuing right-sided radiculopathy. She states that radiculopathy she is experiencing today is different than what she had prior to her surgery. She reports resolution of her right-sided foot- drop, and previous right-sided leg pain. She states she now has low back pain which shoots down her posterior buttocks wraps around her anterior thigh goes down over the lateral side of her right tibialis and terminates at the top of her right foot. She states this pain is worsening day by day causing her a great deal of distress. We reviewed her MRI imaging which shows moderate-severe impingement of the right-sided L5 nerve root. She reports that she recently had a L5 nerve block completed by Dr. Watson. She reports she had 5 weeks of complete symptom relief after this nerve block. After reviewing her imaging and discussing this case with Dr. William, she was placed on her surgical schedule for a right-sided L5 foraminotomy. This is contingent upon us obtaining records from Dr. Watson confirming that the right-sided L5 nerve root was indeed addressed via a nerve block. The patient has tentatively been placed on her surgical schedule for 11/17/2023. She is agreeable to this. Olivia was given risk and benefits of surgery including but not limited to infection, hematoma, nerve injury, durotomy, weakness, bowel/bladder injury, persistent pain, as well as the option to continue with conservative treatment and patient wishes to proceed with surgery. They are aware they should stop NSAIDs 7 days prior to surgery. All questions were answered to the best of our ability. If there is anything about this patients medical history that we have overlooked or concerns you have about us proceeding with surgery we would appreciate any input you can offer. Total amount of time spent in this visit was 35 minutes in discussion of symptoms, MRI imaging results and subsequent plan of care. Kevin William MD,PhD [facility] Coding Level of Care Code Est Pt Level 4 (27027) Diagnoses Status post lumbar spine surgery for decompression of spinal cord Z98.890
== END 2023-09-07 15:50 | disposition home or self-care (01) ==
PROVIDERS: PCP Internal Medicine; Visit Provider Physician Assistant
DX: Z98.890 Other specified postprocedural states (principal)
CPT/HCPCS: 99214

== ENCOUNTER → 2023-09-07 14:20 | Outpatient (BNVA) | payer MEDICARE, OTHER, SELFPAY | PROVIDERS: PCP Internal Medicine; Visit Provider Physician Assistant | DX: Z98.890 Other specified postprocedural states (principal) | CPT/HCPCS: 99212 ==

== ENCOUNTER → 2023-11-03 13:34 | Outpatient (BNV) | payer MEDICARE, SELFPAY | PROVIDERS: PCP Internal Medicine; Visit Provider Internal Medicine Cardiovascular Disease | DX: Z01.810 Encounter for preprocedural cardiovascular examination (principal) | CPT/HCPCS: 93010 ==

== ENCOUNTER 2023-11-17 07:28 | Day surgery (SDC) | payer MEDICARE, OTHER, SELFPAY ==
--- NOTE | 2023-11-03 | ECG_ITS ---
Test Reason : PREOP Blood Pressure : / mmHG Vent. Rate : 062 BPM Atrial Rate : 062 BPM P-R Int : 150 ms QRS Dur : 086 ms QT Int : 428 ms P-R-T Axes : 027 016 032 degrees QTc Int : 434 ms Normal sinus rhythm Normal ECG When compared with ECG of 18-NOV-2005 14:31, No significant change was found Referred By: Cherie Davidson Electronically Signed By:CHILO LANCE MD
[2023-11-03 12:44] VITALS: BP 115/58; PULSE 60; RESP 16; O2SAT 98; BMI 38.6
--- NOTE | 2023-11-03 12:59 | HO.ANESPROP2 ---
HPI - Anesthesia Eval Consult details Narrative: 68yo F for Right L5 Foraminotomy Multiple Med allergies MS: Follows neurology, stable Seizures: Last ~ 1 year ago, lyrica Sjogren's: Dry eye, no tx at this time Histamine intolerance: Histamine build up, cannot have epinephrine. Will premedicate with benadryl. PMFSH Active Problems Active Problems: All Active Problems Status post lumbar spine surgery for decompression of spinal cord (Acute) Lumbar stenosis (Acute) Past Medical History Medical History (Updated 11/17/23 @ 10:40 by JESSICA Ochoa) Drug intolerance Lumbar disc herniation Tubular adenoma of colon Pernicious anemia Osteopenia Hyperlipidemia Seizures H/O Sjogren's disease Pleural effusion Hx of cardiac disorder History of Meckel's diverticulum High cholesterol Hx of ventricular tachycardia History of Koo's esophagus Arthritis Chronic back pain Hx of hepatitis Hx of pancreatitis History of pernicious anemia Hx of Clostridium difficile infection IBS (irritable bowel syndrome) Migraine OCD (obsessive compulsive disorder) Muscle spasm Lyme disease Depression Multiple sclerosis Hiatal hernia GERD (gastroesophageal reflux disease) Family History Family history of problems with anesthesia: No Surgical History Surgical History H/O colonoscopy History of tonsillectomy and adenoidectomy Hx of removal of ovary Hx of hemorrhoidectomy History of ureter repair Hx of hysterectomy Hx of breast biopsy Hx of elbow surgery Hx of cholecystectomy Hx of appendectomy Hx of esophagogastroduodenoscopy History of bowel resection History of Problems with Anesthesia: No Social History Social History (Updated 04/08/22 @ 13:50 by María Hines 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 Allergies Allergy/AdvReac Type Severity Reaction Status Date / Time scallops Allergy Severe HIVES, Verified 10/22/22 14:29 THROAT CLOSING, VOMITING shrimp Allergy Severe HIVES, Verified 10/22/22 14:29 THROAT CLOSES DIFF BREATHING bupivacaine [From Marcaine] Allergy Intermediate Blister Verified 10/11/23 14:58 celecoxib [From CELEBREX] Allergy Unknown HIVES Verified 10/22/22 14:29 chlorzoxazone Allergy Unknown hives Verified 10/22/22 14:29 [Parafon Forte DSC] meperidine [Demerol] Allergy Unknown hives Verified 10/22/22 14:29 metoclopramide [Reglan] Allergy Unknown hives Verified 10/22/22 14:29 morphine [MORPHINE] Allergy Unknown HIVES Verified 10/22/22 14:29 pentazocine [Talwin] Allergy Unknown hives Verified 10/22/22 14:29 Sulfa (Sulfonamide Allergy Unknown hives Verified 10/22/22 14:29 Antibiotics) sulfamethoxazole Allergy Unknown HIVES Verified 10/22/22 14:29 [From BACTRIM] trimethoprim [From BACTRIM] Allergy Unknown HIVES Verified 10/22/22 14:29 banana Allergy Unknown Verified 11/02/23 09:47 dimethyl fumarate Allergy Unknown Verified 11/02/23 09:51 [From Tecfidera] gabapentin Allergy Hallucinati Verified 11/17/23 08:13 ons glatiramer (copolymer 1) Allergy Anaphylaxis Verified 10/22/22 14:29 [From Copaxone] Interferons Allergy Unknown Verified 11/02/23 09:51 natalizumab [From Tysabri] Allergy Unknown Verified 11/02/23 09:51 ocrelizumab [From Ocrevus] Allergy Anaphylaxis Verified 10/22/22 14:29 shellfish derived Allergy Unknown Verified 11/02/23 09:51 DISOLVABLE SUTURES Allergy Unknown SWELLING Uncoded 04/01/20 15:53 Home Medications ?Medication ?Instructions ?Recorded ?Confirmed ?Last Taken ?Type cyanocobalamin (vitamin B-12) 1,000 mcg IM QMONTH 04/01/20 11/02/23 Unknown History 1,000 mcg/mL injection kit diphenoxylate-atropine 2.5 1 tab PO DAILY PRN Diarrhea 04/01/20 11/02/23 Unknown History mg-0.025 mg tablet nadolol 80 mg tablet (Corgard) 80 mg PO TID 04/01/20 11/02/23 11/17/23 06:30 History omeprazole 40 mg capsule,delayed 40 mg PO BEDTIME 04/01/20 11/03/23 Unknown History release pregabalin 150 mg capsule (Lyrica) 150 mg PO BID 04/01/20 11/02/23 Unknown History sertraline 100 mg tablet (Zoloft) 150 mg PO DAILY 04/01/20 11/02/23 Unknown History simvastatin 40 mg tablet 40 mg PO BEDTIME 04/01/20 11/02/23 Unknown History tizanidine 4 mg capsule (Zanaflex) 4 mg PO Q6-8H PRN Muscle Spasm 04/01/20 11/03/23 Unknown History uxdfsyfxiu-erxshuhtcvhtx-keegeomw 1 tab PO Q4H PRN migraine 11/11/22 11/02/23 Unknown History 50 mg-325 mg-40 mg tablet lutein 20 mg tablet 20 mg PO DAILY 11/11/22 11/02/23 Unknown History Lactobacillus acidophilus 250 500 mmu cells PO TID 11/02/23 11/02/23 Unknown History million cell capsule (Probiotic Acidophilus) acetaminophen 500 mg tablet 1,000 mg PO Q6H PRN Pain 11/02/23 11/02/23 Unknown History magnesium oxide 400 mg PO DAILY 11/02/23 11/02/23 Unknown History cholecalciferol (vitamin D3) 50 50 mcg PO DAILY 11/03/23 11/03/23 Unknown History mcg (2,000 unit) capsule (Vitamin D3) ondansetron 4 mg disintegrating 4 mg PO Q8H PRN Nausea 11/03/23 11/03/23 Unknown History tablet Exam Height,Weight and Vital Signs: Height 5 ft 6 in Weight 108.409 kg Last Vital Signs Pulse 60 11/03/23 12:44 Resp 16 11/03/23 12:44 BP 115/58 L 11/03/23 12:44 Pulse Ox 98 11/03/23 12:44 O2 Del Method Room Air 11/03/23 12:44 Pertinent Lab Results Pertinent Lab Results: Lab Results 11/03/23 Range/Units 13:33 WBC 5.9 (4.8-10.8) X10*3/uL RBC 4.11 L (4.20-5.50) X10*6/uL Hgb 13.5 (12.0-16.0) g/dl Hct 41.1 (37.0-47.0) % MCV 100.0 H (80.0-98.0) fL MCH 32.8 (27.0-33.0) pg MCHC 32.8 (31.0-35.0) g/dl RDW 13.6 (11.0-16.0) % Plt Count 126 L (160-400) X10*3/uL MPV 11.3 (9.4-12.3) fL Absolute Nucleated RBC 0.000 (0.0-0.012) X10*3/uL Nucleated RBC % (auto) 0.0 (0.0-0.2) /100WBC Sodium 141 (135-145) mmol/L Potassium 4.0 (3.3-5.1) mmol/L Chloride 108 (96-108) mmol/L Carbon Dioxide 26 (22-29) mmol/L Anion Gap 11 L (12-20) BUN 8 L (9-16) mg/dL Creatinine 0.76 (0.5-1.4) mg/dL Estim Creat Clear Calc 87.0 Estimated GFR > 60 Random Glucose 113 (60-115) mg/dL Calcium 10.0 (8.4-10.2) mg/dL Narrative Narrative: EKG 10/2023 Vent. Rate : 062 BPM Atrial Rate : 062 BPM P-R Int : 150 ms QRS Dur : 086 ms QT Int : 428 ms P-R-T Axes : 027 016 032 degrees QTc Int : 434 ms Normal sinus rhythm Normal ECG When compared with ECG of 18-NOV-2005 14:31, No significant change was found Airway Mallampati Class: II TM Dist: >3cm Neck ROM: Full Loose/Missing/Broken Teeth: Yes (Right upper molar crowns x broken) Heart: RRR Lungs: CTAB Assessment and Plan Assessment Anesthesia Assessment: Anesthesia Plan Discussed and PAT Visit Final Anesthetic Review Family History of Problems with Anesthesia: No History of Problems with Anesthesia: No
[2023-11-03 14:21] LABS: Hematocrit 41.1 % (37.0-47.0); Hemoglobin 13.5 g/dl (12.0-16.0); Mean Corpuscular HGB Conc 32.8 g/dl (31.0-35.0); Mean Corpuscular Hemoglobin 32.8 pg (27.0-33.0); Mean Platelet Volume 11.3 fL (9.4-12.3); Platelet Count 126 X10*3/uL (160-400); Red Blood Count 4.11 X10*6/uL (4.20-5.50); Red Cell Distribution Width 13.6 % (11.0-16.0); White Blood Count 5.9 X10*3/uL (4.8-10.8)
[2023-11-03 14:43] LABS: Anion Gap 11 (12-20); Blood Urea Nitrogen 8 mg/dL (9-16); Carbon Dioxide 26 mmol/L (22-29); Chloride 108 mmol/L (96-108); Estimated Glomerular Filt Rate > 60; Glucose Random 113 mg/dL (60-115); Sodium 141 mmol/L (135-145)
[2023-11-17] VITALS (8 sets, daily range): BP systolic 105–134; BP diastolic 43–64; PULSE 62–83; RESP 14–16; TEMP 36.6–37; O2SAT 95–99; BMI 37.8
--- NOTE | ~2023-11-17 | FL_ITS ---
EXAMINATION: XR FLUOROSCOPY WITH IMAGES CLINICAL INFORMATION: L5 foraminotomy. COMPARISON: None available. TECHNIQUE: Fluoroscopy Supervised By: Dr. William. Fluoroscopy Time: 0.1 min. Cumulative Dose: 8.79 mGy. DAP: 1.78 Gycm2. Images: 1. FINDINGS: Intraoperative fluoroscopy and spot films were performed during a procedure in the OR. Single image demonstrates surgical cannulas and probes at the L4-L5 interspace posteriorly. Please see Dr. Willis' report for complete details. FL/FL guidance in OR IMPRESSION: Intraoperative fluoroscopy and spot films were obtained. Please see Dr. Willis' report for complete details.
[2023-11-17] MEDS: methocarbamoL 750 MG TABLET PO (08:07)
[2023-11-17] MEDS: diphenhydrAMINE HCL 25 MG CAPSULE PO (08:07)
[2023-11-17] MEDS: Lactated Ringers 1,000 ML 100 ML IVCONT (08:43)
[2023-11-17] MEDS: Famotidine/PF 20 MG/2 ML VIAL IVPUSH (09:09)
[2023-11-17] MEDS: methylPREDNISolone Sod Succ 125 MG/2 ML VIAL IVPUSH (09:13)
--- NOTE | 2023-11-17 09:21 | MHC.SHP ---
Pre-Procedural Eval Section A - 24 Hr Update-Section A only Date of Service: 11/17/23 Section B - Complete if H&P > 30 days Chief Complaint: Other specified postprocedural states Details of Present Illness: Lumbar radiculopathy Present Medications: see Short Stay Collaborative assessment Allergies: Allergies Allergy/AdvReac Type Severity Reaction Status Date / Time scallops Allergy Severe HIVES, Verified 10/22/22 14:29 THROAT CLOSING, VOMITING shrimp Allergy Severe HIVES, Verified 10/22/22 14:29 THROAT CLOSES DIFF BREATHING bupivacaine [From Marcaine] Allergy Intermediate Blister Verified 10/11/23 14:58 celecoxib [From CELEBREX] Allergy Unknown HIVES Verified 10/22/22 14:29 chlorzoxazone Allergy Unknown hives Verified 10/22/22 14:29 [Parafon Forte DSC] meperidine [Demerol] Allergy Unknown hives Verified 10/22/22 14:29 metoclopramide [Reglan] Allergy Unknown hives Verified 10/22/22 14:29 morphine [MORPHINE] Allergy Unknown HIVES Verified 10/22/22 14:29 pentazocine [Talwin] Allergy Unknown hives Verified 10/22/22 14:29 Sulfa (Sulfonamide Allergy Unknown hives Verified 10/22/22 14:29 Antibiotics) sulfamethoxazole Allergy Unknown HIVES Verified 10/22/22 14:29 [From BACTRIM] trimethoprim [From BACTRIM] Allergy Unknown HIVES Verified 10/22/22 14:29 banana Allergy Unknown Verified 11/02/23 09:47 dimethyl fumarate Allergy Unknown Verified 11/02/23 09:51 [From Tecfidera] gabapentin Allergy Hallucinati Verified 11/17/23 08:13 ons glatiramer (copolymer 1) Allergy Anaphylaxis Verified 10/22/22 14:29 [From Copaxone] Interferons Allergy Unknown Verified 11/02/23 09:51 natalizumab [From Tysabri] Allergy Unknown Verified 11/02/23 09:51 ocrelizumab [From Ocrevus] Allergy Anaphylaxis Verified 10/22/22 14:29 shellfish derived Allergy Unknown Verified 11/02/23 09:51 DISOLVABLE SUTURES Allergy Unknown SWELLING Uncoded 04/01/20 15:53 Review of Systems Sugical H&P ROS: Yes, Specify: Neurological (No deficits for motor or sensory) Exam Surgical H&P Exam: Normal: Abdomen and Normal: Skin and Not Evaluated: HEENT, Not Evaluated: Heart, Not Evaluated: Lungs, Not Evaluated: Extremities and Not Evaluated: Neurological Plan Diagnosis/Plan: Unchanged I have reviewed the history and physical and performed a pertinent physical examination on my patient. No changes have occurred unless specified. Right L5 foraminotomy. Solu-Medrol and Pepcid given preop to counter histamine response Time Spent With Patient Time: Total time managing care of this patient today ___10_ minutes.
--- NOTE | 2023-11-17 10:30 | W.PM.OPN ---
Operative Note Operative Note Date of Service: 11/17/23 Narrative: Preoperative Diagnosis: Spinal stenosis/lateral recess stenosis/neural foraminal stenosis Operation: Right L5 Laminotomy, Partial facetectomy and foraminotomy with use of microscope Consent Informed Consent was obtained for this operation. I have explained the nature, purpose and benefits of the operation. I have discussed the risks and benefit of the operation including possible complications or adverse events with patient/family. Alternative(s) were discussed with the patient with their relative benefits and risks as well as the consequences of not accepting the operation were included in obtaining consent. Surgeon: LAM TUCKER MD, PHD Procedure Assisted By: tonia Dwyer Description of Procedure This patient is suffering from a right lumbar radiculopathy due to L5 neuroforaminal stenosis. The patient was offered a decompression of the nervous structures. The procedure complications were explained. The patient was consented. The patient was brought to the operating room and endotracheally intubated. The patient was turned in prone position on the Awais frame. Prep and drape was done followed by timeout. Physician therapy assistant provided access. A mid lumbar incision was made followed by release of the paravertebral muscle on the right side to expose the L5 lamina and facet joint. An intraoperative x-ray was obtained to confirm the correct level. The microscope was brought in. I took over the procedure. The high-speed drill was used to do a L5 laminotomy. #2 Kerrison was used to further remove the lamina towards the L5 foramen. With a nerve hook the medial wall of the L5 pedicle was palpated as well as the beginning of the L5 foramen. The facet joint was partially drilled down after which with a #2 Kerrison a foraminotomy was done. Finally a foraminotomy Kerrison was used to complete the foraminotomy. A long nerve hook could be easily passed lateral and dorsally from the nerve root, a sign of relief of the neuroforaminal stenosis and decompression of the nerve root . There was not a lot of stenosis. The microscope was removed. Hemostasis was done. Incision was closed in 2 layers. Steri-Strips were used to approximate incision. An OpSite with Tegaderm was used to cover the incision. All sponge needle counts were correct. Patient was extubated and transported in stable is to recovery room. Anesthesia: General Estimated Blood Loss (ml): Minimal Duration of Surgery: Under 60 Minutes Postoperative Plan: Discharge to home
--- NOTE | 2023-11-17 10:39 | P.DS_ITS ---
DS: Providers Provider Date of Service: 11/17/23 Date of discharge: 11/17/23 Primary care physician: Anusha Barry MD Admitting clinician: Selwyn William DS: Diagnosis Discharge Diagnosis (1) Lumbar radiculopathy: Status: Acute DS: Summary Time Attestation Discharge Coordination Time (in mins): 5 Quality: Safe Use of Opioids Does Pt have an Active Cancer Diagnosis on the Problem List?: No Quality: Stroke Does the patient have a stroke diagnosis?: No Physical Exam Vital Signs: Vital Signs: Last Vital Signs Temp 98.6 F 11/17/23 08:23 Pulse 62 11/17/23 08:23 Resp 16 11/17/23 08:23 BP 111/53 L 11/17/23 08:23 Pulse Ox 97 11/17/23 08:23 O2 Del Method Room Air 11/17/23 08:23 BMI result Body Mass Index 37.8 Discharge Plan Discharge Patient Disposition: Home, Self-Care Referrals: Anusha Barry MD [Primary Care Provider] - 1 Week Discharge Medications: New docusate sodium [Colace] 100 mg capsule 100 mg PO BID Qty: 20 0RF oxycodone 5 mg tablet 5 mg PO Q4H PRN (Reason: pain) Qty: 30 0RF Rx Instructions: Partial Fill upon patient request. Continued nadolol [Corgard] 80 mg Tablet 80 mg PO TID sertraline [Zoloft] 100 mg Tablet 150 mg PO DAILY diphenoxylate-atropine 2.5-0.025 mg Tablet 1 tab PO DAILY PRN (Reason: Diarrhea) omeprazole 40 mg Capsule,Delayed Release(Dr/Ec) 40 mg PO BEDTIME simvastatin 40 mg Tablet 40 mg PO BEDTIME tizanidine [Zanaflex] 4 mg Capsule 4 mg PO Q6-8H PRN (Reason: Muscle Spasm) pregabalin [Lyrica] 150 mg Capsule 150 mg PO BID cyanocobalamin (vitamin B-12) 1,000 mcg/mL Kit 1,000 mcg IM QMONTH acetaminophen 500 mg Tablet 1,000 mg PO Q6H PRN (Reason: Pain) Probiotic Acidophilus 250 million cell Capsule 500 mmu cells PO TID magnesium oxide 400 mg magnesium Tablet 400 mg PO DAILY cholecalciferol (vitamin D3) [Vitamin D3] 50 mcg (2,000 unit) Capsule 50 mcg PO DAILY ondansetron 4 mg Tablet,Disintegrating 4 mg PO Q8H PRN (Reason: Nausea) tjyytvufwo-mpmuolvfdxlmu-jzzb 50-325-40 mg tablet 1 tab PO Q4H PRN (Reason: migraine) lutein 20 mg Tablet 20 mg PO DAILY Rx Instructions: give with meal/snack Discharge Orders: Discharge Order (Routine); Ordered 11/17/23 Ordered By: Robinson Hauser Diet: Advance to usual diet Activity on Discharge: As tolerated Activity Restrictions/Additional Instructions: After your spinal surgery we ask you to observe the following restrictions/guidelines: Activity: It is normal to feel some discomfort as you increase your activity, but that will improve with time. We ask you avoid heavy lifting or acitivities that cause pain. As a general rule, 8lbs is a safe limit for lifting right after surgery. Walk as much as you feel comfortable but not to exhaustion. You will feel extra tired the first few days after surgery. Stay well hydrated. It is OK to walk up and down stairs You may return to driving when you are off narcotics (such as vicodin, oxycodone, dilaudid, etc), and you are back to normal functional capacity. If you have any concerns please check with office before driving. Return to work is specific to each patient and each surgery, so please speak with your doctor/PA at first follow up. Please bring paperwork such as FMLA at that time if you need it filled out. Medications: For optimum pain control, it is best to start with a combination of 500 mg of Tylenol every 4 hours with 600 mg of Motrin every 8 hours, and use narcotics as needed in between for breakthrough pain. We will give you a short supply of narcotics after surgery (usually one weeks worth). If you need more please call the office but do not use more than prescribed. You will need to give our office 48 hours notice if you need narcotics refilled and we do not fill narcotics on weekends or evenings. If you are on a narcotic, it is a good idea to take a stool softener such as colace or senna to avoid constipation If you take blood thinner such as aspirin, Plavix, Coumadin, Effient, Eliquis etc for conditions such as Afib, DVT, Pulmonary embolus, coronary disease, stents etc please speak with your surgeon about specific details as to when you can resume these medications. You can resume NSAIDs on post op day 1 (eg: Motrin, Naproxen, etc). Follow up: Please call the office, , after surgery to arrange a 3 week follow up for wound check. Wound Care: You may remove your dressing on the first day after surgery. ?You may ?leave open to air. Please do not remove the steri strips underneath. they will fall off on their own in one week. IT IS NORMAL FOR THE WOUND TO OOZE OR BE BLOODY FOR A FEW DAYS AFTER SURGERY. ?IF THIS HAPPENS JUST PLACE NEW DRESSING OVER IT TO AVOID STAINING CLOTHES. You may shower on post op day # 1 We ask that you do not let the water soak the wound. If it does get wet, just towel dry lightly. Please do not scrub your incision or place any type of chemical/ointment on the wound. No tub baths, pools or jacuzzis for one month. If you have any leaking or redness from your wound, or fevers, please call office Print Language: Bulgarian
--- NOTE | 2023-11-17 13:16 | PC.NURSE ---
Patient difficult IV start. 2 attempts made. Patient states she does not want IV medication and would prefer PO. Dr. Daniel made aware. Dr. Daniel to PACU to see patient. After conversation, patient and Dr. Daniel came to agreement on PO benadryl then patient can be discharged. Dr. Daniel states no need to hold patient and that she is clear for discharge at this time.
--- NOTE | 2023-11-17 13:24 | PC.NURSE ---
Dr. Daniel aware patient received 25 mg benadryl preop and 50 mg benadryl in the OR. States to still give 50mg benadryl PO
[2023-11-17] MEDS: diphenhydrAMINE HCL 25 MG CAPSULE 50 MG PO (13:26)
== END 2023-11-17 13:30 | disposition home or self-care (01) ==
PROVIDERS: Nurse Practitioner; PCP Internal Medicine; Visit Provider Neurological Surgery
PROC: (CPT 63047; principal; 2023-11-17 09:20)
DX: M48.061 Spinal stenosis, lumbar region without neurogenic claudication (principal); M54.16 Radiculopathy, lumbar region; Z88.2 Allergy status to sulfonamides; Z88.5 Allergy status to narcotic agent; Z88.8 Allergy status to other drugs, medicaments and biological substances
CPT/HCPCS: 63047; 36415; 80048; 85027; 93005; J0131; J0690; J1100; J2250; J2405; J2704; J2919; J3010

== ENCOUNTER → 2023-11-17 07:28 | Outpatient (BNV) | payer MEDICARE, SELFPAY | PROVIDERS: PCP Internal Medicine; Visit Provider Neurological Surgery | DX: M48.061 Spinal stenosis, lumbar region without neurogenic claudication (principal); M54.16 Radiculopathy, lumbar region | CPT/HCPCS: 63047; 99499 ==

== ENCOUNTER 2023-12-08 14:31 | Outpatient (AMB) | payer MEDICARE, SELFPAY ==
--- NOTE | 2023-12-08 14:40 | A.SPINEOV_ITS ---
Intake Visit Reasons: 1st post op Intake Note: Ms. 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 Allergies scallops Allergy (Severe, Verified 10/22/22 14:29) HIVES, THROAT CLOSING, VOMITING shrimp Allergy (Severe, Verified 10/22/22 14:29) HIVES, THROAT CLOSES DIFF BREATHING bupivacaine [From Marcaine] Allergy (Intermediate, Verified 10/11/23 14:58) Blister celecoxib [From CELEBREX] Allergy (Unknown, Verified 10/22/22 14:29) HIVES chlorzoxazone [Parafon Forte DSC] Allergy (Unknown, Verified 10/22/22 14:29) hives meperidine [Demerol] Allergy (Unknown, Verified 10/22/22 14:29) hives metoclopramide [Reglan] Allergy (Unknown, Verified 10/22/22 14:29) hives morphine [MORPHINE] Allergy (Unknown, Verified 10/22/22 14:29) HIVES pentazocine [Talwin] Allergy (Unknown, Verified 10/22/22 14:29) hives Sulfa (Sulfonamide Antibiotics) Allergy (Unknown, Verified 10/22/22 14:29) hives sulfamethoxazole [From BACTRIM] Allergy (Unknown, Verified 10/22/22 14:29) HIVES trimethoprim [From BACTRIM] Allergy (Unknown, Verified 10/22/22 14:29) HIVES banana Allergy (Verified 11/02/23 09:47) Unknown dimethyl fumarate [From Tecfidera] Allergy (Verified 11/02/23 09:51) Unknown gabapentin Allergy (Verified 11/17/23 08:13) Hallucinations glatiramer (copolymer 1) [From Copaxone] Allergy (Verified 10/22/22 14:29) Anaphylaxis Interferons Allergy (Verified 11/02/23 09:51) Unknown natalizumab [From Tysabri] Allergy (Verified 11/02/23 09:51) Unknown ocrelizumab [From Ocrevus] Allergy (Verified 10/22/22 14:29) Anaphylaxis shellfish derived Allergy (Verified 11/02/23 09:51) Unknown DISOLVABLE SUTURES Allergy (Unknown, Uncoded 04/01/20 15:53) SWELLING Assessment & Plan Assessment & Plan (1) Lumbar radiculopathy: Code(s): M54.16 - Radiculopathy, lumbar region Category: Medical Plan Procedure: Right L5 Laminotomy, Partial facetectomy and foraminotomy Olivia comes in today for her 1st postoperative visit. Thankfully she reports resolution of her severe shooting right-sided radiculopathy. She continues to report resolution of her right-sided footdrop. She does still have quite a bit of tenderness /pain in her right posterior buttocks, but is overall feeling much better than she did prior to surgery. She does also still need to ambulate with the assistance of a cane, but again I believe she is healing very well and will likely not need to utilize the cane for much longer. I do believe that her posterior buttocks pain is likely to resolve as the inflammation from surgery begins to recede. We typically see us occur around weeks 4-6 after surgery. No new neurological deficits. The patient is able to ambulate well with the assistance of her cane. Her posterior incision site appears clean and well healed, no signs of drainage. We will follow up again with Olivia in 6 weeks to evaluate for continued healing progress. I partially refilled her oxycodone for continued pain control. I also provided the patient with her MRI disc. Kevin William MD,PhD [facility] Medications: Refilled oxycodone Partial Fill upon patient request. 5 mg PO Q6-8H PRN 20 tabs 0RF severe pain (scale score 7-10) Coding Level of Care Code Global (83752) Diagnoses Lumbar radiculopathy M54.16
== END 2023-12-08 15:00 | disposition home or self-care (01) ==
PROVIDERS: PCP Internal Medicine; Visit Provider Physician Assistant
DX: M54.16 Radiculopathy, lumbar region (principal)
CPT/HCPCS: 99024

== ENCOUNTER → 2023-12-08 14:31 | Outpatient (BNVA) | payer MEDICARE, OTHER, SELFPAY | PROVIDERS: PCP Internal Medicine; Visit Provider Physician Assistant | DX: M54.16 Radiculopathy, lumbar region (principal) | CPT/HCPCS: 99212 ==

== ENCOUNTER 2024-01-23 14:38 | Outpatient (AMB) | payer MEDICARE, SELFPAY ==
--- NOTE | 2024-01-23 13:52 | A.SPINEOV_ITS ---
Intake Visit Reasons: 2nd post op Intake Note: Ms. 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 post-op visit. 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 Allergies scallops Allergy (Severe, Verified 10/22/22 14:29) HIVES, THROAT CLOSING, VOMITING shrimp Allergy (Severe, Verified 10/22/22 14:29) HIVES, THROAT CLOSES DIFF BREATHING bupivacaine [From Marcaine] Allergy (Intermediate, Verified 10/11/23 14:58) Blister celecoxib [From CELEBREX] Allergy (Unknown, Verified 10/22/22 14:29) HIVES chlorzoxazone [Parafon Forte DSC] Allergy (Unknown, Verified 10/22/22 14:29) hives meperidine [Demerol] Allergy (Unknown, Verified 10/22/22 14:29) hives metoclopramide [Reglan] Allergy (Unknown, Verified 10/22/22 14:29) hives morphine [MORPHINE] Allergy (Unknown, Verified 10/22/22 14:29) HIVES pentazocine [Talwin] Allergy (Unknown, Verified 10/22/22 14:29) hives Sulfa (Sulfonamide Antibiotics) Allergy (Unknown, Verified 10/22/22 14:29) hives sulfamethoxazole [From BACTRIM] Allergy (Unknown, Verified 10/22/22 14:29) HIVES trimethoprim [From BACTRIM] Allergy (Unknown, Verified 10/22/22 14:29) HIVES banana Allergy (Verified 11/02/23 09:47) Unknown dimethyl fumarate [From Tecfidera] Allergy (Verified 11/02/23 09:51) Unknown gabapentin Allergy (Verified 11/17/23 08:13) Hallucinations glatiramer (copolymer 1) [From Copaxone] Allergy (Verified 10/22/22 14:29) Anaphylaxis Interferons Allergy (Verified 11/02/23 09:51) Unknown natalizumab [From Tysabri] Allergy (Verified 11/02/23 09:51) Unknown ocrelizumab [From Ocrevus] Allergy (Verified 10/22/22 14:29) Anaphylaxis shellfish derived Allergy (Verified 11/02/23 09:51) Unknown DISOLVABLE SUTURES Allergy (Unknown, Uncoded 04/01/20 15:53) SWELLING Assessment & Plan Assessment & Plan (1) Status post lumbar spine surgery for decompression of spinal cord: Code(s): Z98.890 - Other specified postprocedural states Category: Surgical Plan Procedure: Right L5 Laminotomy, Partial facetectomy and foraminotomy Olivia comes in today for her 2nd postoperative visit. Thankfully she continues to report resolution of her severe shooting right-sided radiculopathy. She does still have some pain well localized to her right SI joint area, but feels this may be a separate issue. We discussed the possibility follow up with someone from Orthopedics, however she would prefer to have this issue addressed via a chiropractor as she has had success treating this issue in the past this way. I answered all of her postoperative questions to the best of my ability. No new neurological deficits. The patient is able to ambulate well with the assistance of her cane. Her posterior incision site is well healed. There is no need for continued routine follow up with Olivia, she may be discharged as a patient. Kevin William MD,PhD [facility] Coding Level of Care Code Global (36571) Diagnoses Status post lumbar spine surgery for decompression of spinal cord Z98.890
== END 2024-01-23 15:18 | disposition home or self-care (01) ==
PROVIDERS: PCP Internal Medicine; Visit Provider Physician Assistant
DX: Z98.890 Other specified postprocedural states (principal)
CPT/HCPCS: 99024

== ENCOUNTER → 2024-01-23 14:38 | Outpatient (BNVA) | payer MEDICARE, OTHER, SELFPAY | PROVIDERS: PCP Internal Medicine; Visit Provider Physician Assistant | DX: Z47.89 Encounter for other orthopedic aftercare (principal); Z98.890 Other specified postprocedural states | CPT/HCPCS: 99212 ==

== ENCOUNTER 2024-02-08 10:19 | Day surgery (SDC) | payer MEDICARE, OTHER, SELFPAY ==
[2024-02-06 14:23] VITALS: BMI 38.1
[2024-02-06 15:03] VITALS: BMI 35.5
[2024-02-08] MEDS: diphenhydrAMINE HCL 50 MG/ML VIAL IVPUSH (12:41)
[2024-02-08] MEDS: Famotidine/PF 20 MG/2 ML VIAL IVPUSH (12:42)
[2024-02-08] MEDS: Lactated Ringers 1,000 ML 100 ML IVCONT (12:46)
[2024-02-08 12:47] VITALS: BMI 36.5
[2024-02-08 12:52] VITALS: BP 96/60; PULSE 66; RESP 14; TEMP 36.3; O2SAT 96
--- NOTE | 2024-02-08 12:55 | P.CONAN_ITS ---
Documented by User: Cherie Davidson NP 02/07/24 10:05 HPI - Anesthesia Eval Consult details Narrative: 68yo F for Upper Endoscopy and Colonoscopy s/p Right L5 Foraminotomy 10/2023 with GA-ETT 7 Multiple Med allergies MS: Follows neurology, stable Seizures: Last ~ 1 year ago, lyrica Sjogren's: Dry eye, no tx at this time Mastocystosis/Histamine intolerance: Premed with IV Famotadine 20mg, Benadryl 50mg, Solumedrol 125mg for foraminotomy PMFSH Active Problems Active Problems: All Active Problems Lumbar radiculopathy (Acute) Status post lumbar spine surgery for decompression of spinal cord (Acute) Lumbar stenosis (Acute) Past Medical History Medical History Drug intolerance Lumbar disc herniation Tubular adenoma of colon Pernicious anemia Osteopenia Hyperlipidemia Seizures H/O Sjogren's disease Pleural effusion Hx of cardiac disorder History of Meckel's diverticulum High cholesterol Hx of ventricular tachycardia History of Koo's esophagus Arthritis Chronic back pain Hx of hepatitis Hx of pancreatitis History of pernicious anemia Hx of Clostridium difficile infection IBS (irritable bowel syndrome) Migraine OCD (obsessive compulsive disorder) Muscle spasm Lyme disease Depression Multiple sclerosis Hiatal hernia GERD (gastroesophageal reflux disease) Family History Family history of problems with anesthesia: No Surgical History Surgical History (Updated 02/08/24 @ 12:30 by Therese Larson, PRINCESS) History of laminectomy H/O colonoscopy History of tonsillectomy and adenoidectomy Hx of removal of ovary Hx of hemorrhoidectomy History of ureter repair Hx of hysterectomy Hx of breast biopsy Hx of elbow surgery Hx of cholecystectomy Hx of appendectomy Hx of esophagogastroduodenoscopy History of bowel resection History of Problems with Anesthesia: No Social History Social History (Updated 04/08/22 @ 13:50 by TATE Cook) Are you a primary healthcare manager to a significant other at home: No Do you presently have visiting nurse or other home services: No Comment: tolerb;e Patient Tobacco Use Status: Current everyday Tobacco user Tobacco use type: Cigarette Cigarettes Per Day: 6 Years Smoked: 40 Smoked in Last 30 Days: Yes Second Hand Smoke Exposure: No Use of substances other than those prescribed or required for medical reasons: No Have you been hit, kicked, punched, or otherwise hurt by someone within the past year? 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 Allergy/AdvReac Type Severity Reaction Status Date / Time dimethyl fumarate Allergy Severe Hives, SOB Verified 02/08/24 12:30 [From Tecfidera] glatiramer (copolymer 1) Allergy Severe Anaphylaxis Verified 02/08/24 12:30 [From Copaxone] Interferons Allergy Severe Hives Verified 02/08/24 12:30 meperidine [Demerol] Allergy Severe hives Verified 02/08/24 12:30 natalizumab [From Tysabri] Allergy Severe Hives Verified 02/08/24 12:30 ocrelizumab [From Ocrevus] Allergy Severe Anaphylaxis Verified 02/08/24 12:30 shellfish derived Allergy Severe Anaphylaxis Verified 02/08/24 12:30 sulfamethoxazole Allergy Severe HIVES Verified 02/08/24 12:30 [From BACTRIM] trimethoprim [From BACTRIM] Allergy Severe HIVES Verified 02/08/24 12:30 banana Allergy Intermediate itchy mouth Verified 02/08/24 12:30 bupivacaine [From Marcaine] Allergy Intermediate Blister Verified 02/08/24 12:30 celecoxib [From CELEBREX] Allergy Intermediate HIVES Verified 02/08/24 12:30 darnell [cherries] Allergy Intermediate itchy mouth Verified 02/08/24 12:30 chlorzoxazone Allergy Intermediate hives Verified 02/08/24 12:30 [Parafon Forte DSC] latex Allergy Intermediate Hives Verified 02/08/24 12:30 metoclopramide [Reglan] Allergy Intermediate hives Verified 02/08/24 12:30 morphine [MORPHINE] Allergy Unknown HIVES Verified 02/08/24 12:30 pentazocine [Talwin] Allergy Unknown hives Verified 02/08/24 12:30 Sulfa (Sulfonamide Allergy Unknown hives Verified 02/08/24 12:30 Antibiotics) gabapentin AdvReac Intermediate Hallucinati Verified 02/08/24 12:30 ons DISOLVABLE SUTURES AdvReac Intermediate SWELLING, Uncoded 02/06/24 15:09 sutures don't dissolve Home Medications ?Medication ?Instructions ?Recorded ?Confirmed ?Last Taken ?Type cyanocobalamin (vitamin B-12) 1,000 mcg IM QMONTH 04/01/20 02/08/24 Unknown History 1,000 mcg/mL injection kit diphenoxylate-atropine 2.5 1 tab PO DAILY PRN Diarrhea 04/01/20 02/08/24 Unknown History mg-0.025 mg tablet nadolol 80 mg tablet (Corgard) 80 mg PO TID 04/01/20 02/08/24 11/17/23 06:30 History omeprazole 40 mg capsule,delayed 40 mg PO BEDTIME 04/01/20 02/08/24 Unknown History release pregabalin 150 mg capsule (Lyrica) 150 mg PO BID 04/01/20 02/08/24 Unknown History sertraline 100 mg tablet (Zoloft) 150 mg PO DAILY 04/01/20 02/08/24 Unknown History simvastatin 40 mg tablet 40 mg PO BEDTIME 04/01/20 02/08/24 Unknown History tizanidine 4 mg capsule (Zanaflex) 4 mg PO Q6-8H PRN Muscle Spasm 04/01/20 02/08/24 Unknown History aeeuwcnvvd-ldvfyfbrurcds-cjedwulz 1 tab PO Q4H PRN migraine 11/11/22 02/08/24 Unknown History 50 mg-325 mg-40 mg tablet lutein 20 mg tablet 20 mg PO DAILY 11/11/22 02/08/24 Unknown History Lactobacillus acidophilus 250 500 mmu cells PO TID 11/02/23 02/08/24 Unknown History million cell capsule (Probiotic Acidophilus) acetaminophen 500 mg tablet 1,000 mg PO Q6H PRN Pain 11/02/23 02/08/24 Unknown History cholecalciferol (vitamin D3) 50 50 mcg PO DAILY 11/03/23 02/08/24 Unknown History mcg (2,000 unit) capsule (Vitamin D3) ondansetron 4 mg disintegrating 4 mg PO Q8H PRN Nausea 11/03/23 02/08/24 Unknown History tablet Exam Height,Weight and Vital Signs: Height 5 ft 6 in Weight 99.79 kg Pertinent Lab Results Pertinent Lab Results: Lab Results 11/03/23 Range/Units 13:33 WBC 5.9 (4.8-10.8) X10*3/uL RBC 4.11 L (4.20-5.50) X10*6/uL Hgb 13.5 (12.0-16.0) g/dl Hct 41.1 (37.0-47.0) % MCV 100.0 H (80.0-98.0) fL MCH 32.8 (27.0-33.0) pg MCHC 32.8 (31.0-35.0) g/dl RDW 13.6 (11.0-16.0) % Plt Count 126 L (160-400) X10*3/uL MPV 11.3 (9.4-12.3) fL Absolute Nucleated RBC 0.000 (0.0-0.012) X10*3/uL Nucleated RBC % (auto) 0.0 (0.0-0.2) /100WBC Sodium 141 (135-145) mmol/L Potassium 4.0 (3.3-5.1) mmol/L Chloride 108 (96-108) mmol/L Carbon Dioxide 26 (22-29) mmol/L Anion Gap 11 L (12-20) BUN 8 L (9-16) mg/dL Creatinine 0.76 (0.5-1.4) mg/dL Estim Creat Clear Calc 87.0 Estimated GFR > 60 Random Glucose 113 (60-115) mg/dL Calcium 10.0 (8.4-10.2) mg/dL Narrative Narrative: EKG 10/2023 Vent. Rate : 062 BPM Atrial Rate : 062 BPM P-R Int : 150 ms QRS Dur : 086 ms QT Int : 428 ms P-R-T Axes : 027 016 032 degrees QTc Int : 434 ms Normal sinus rhythm Normal ECG When compared with ECG of 18-NOV-2005 14:31, No significant change was found Airway Mallampati Class: II TM Dist: >3cm Neck ROM: Full Loose/Missing/Broken Teeth: Yes (Right upper molar crowns x broken) Assessment and Plan Assessment Anesthesia Assessment: Chart Reviewed Final Anesthetic Review Family History of Problems with Anesthesia: No History of Problems with Anesthesia: No Documented by User: Karley Jarvis DO 02/08/24 12:58 PMF Past Medical History Medical History Drug intolerance Lumbar disc herniation Tubular adenoma of colon Pernicious anemia Osteopenia Hyperlipidemia Seizures H/O Sjogren's disease Pleural effusion Hx of cardiac disorder History of Meckel's diverticulum High cholesterol Hx of ventricular tachycardia History of Koo's esophagus Arthritis Chronic back pain Hx of hepatitis Hx of pancreatitis History of pernicious anemia Hx of Clostridium difficile infection IBS (irritable bowel syndrome) Migraine OCD (obsessive compulsive disorder) Muscle spasm Lyme disease Depression Multiple sclerosis Hiatal hernia GERD (gastroesophageal reflux disease) Family History Family history of problems with anesthesia: No Surgical History Surgical History (Updated 02/08/24 @ 12:30 by Therese Larson RN) History of laminectomy H/O colonoscopy History of tonsillectomy and adenoidectomy Hx of removal of ovary Hx of hemorrhoidectomy History of ureter repair Hx of hysterectomy Hx of breast biopsy Hx of elbow surgery Hx of cholecystectomy Hx of appendectomy Hx of esophagogastroduodenoscopy History of bowel resection History of Problems with Anesthesia: No Social History Social History (Updated 04/08/22 @ 13:50 by María Hines [facility]) Are you a primary healthcare manager to a significant other at home: No Do you presently have visiting nurse or other home services: No Comment: tolerb;e Patient Tobacco Use Status: Current everyday Tobacco user Tobacco use type: Cigarette Cigarettes Per Day: 6 Years Smoked: 40 Smoked in Last 30 Days: Yes Second Hand Smoke Exposure: No Use of substances other than those prescribed or required for medical reasons: No Have you been hit, kicked, punched, or otherwise hurt by someone within the past year? 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 Allergy/AdvReac Type Severity Reaction Status Date / Time dimethyl fumarate Allergy Severe Hives, SOB Verified 02/08/24 12:30 [From Tecfidera] glatiramer (copolymer 1) Allergy Severe Anaphylaxis Verified 02/08/24 12:30 [From Copaxone] Interferons Allergy Severe Hives Verified 02/08/24 12:30 meperidine [Demerol] Allergy Severe hives Verified 02/08/24 12:30 natalizumab [From Tysabri] Allergy Severe Hives Verified 02/08/24 12:30 ocrelizumab [From Ocrevus] Allergy Severe Anaphylaxis Verified 02/08/24 12:30 shellfish derived Allergy Severe Anaphylaxis Verified 02/08/24 12:30 sulfamethoxazole Allergy Severe HIVES Verified 02/08/24 12:30 [From BACTRIM] trimethoprim [From BACTRIM] Allergy Severe HIVES Verified 02/08/24 12:30 banana Allergy Intermediate itchy mouth Verified 02/08/24 12:30 bupivacaine [From Marcaine] Allergy Intermediate Blister Verified 02/08/24 12:30 celecoxib [From CELEBREX] Allergy Intermediate HIVES Verified 02/08/24 12:30 darnell [cherries] Allergy Intermediate itchy mouth Verified 02/08/24 12:30 chlorzoxazone Allergy Intermediate hives Verified 02/08/24 12:30 [Parafon Forte DSC] latex Allergy Intermediate Hives Verified 02/08/24 12:30 metoclopramide [Reglan] Allergy Intermediate hives Verified 02/08/24 12:30 morphine [MORPHINE] Allergy Unknown HIVES Verified 02/08/24 12:30 pentazocine [Talwin] Allergy Unknown hives Verified 02/08/24 12:30 Sulfa (Sulfonamide Allergy Unknown hives Verified 02/08/24 12:30 Antibiotics) gabapentin AdvReac Intermediate Hallucinati Verified 02/08/24 12:30 ons DISOLVABLE SUTURES AdvReac Intermediate SWELLING, Uncoded 02/06/24 15:09 sutures don't dissolve Home Medications ?Medication ?Instructions ?Recorded ?Confirmed ?Last Taken ?Type cyanocobalamin (vitamin B-12) 1,000 mcg IM QMONTH 04/01/20 02/08/24 Unknown History 1,000 mcg/mL injection kit diphenoxylate-atropine 2.5 1 tab PO DAILY PRN Diarrhea 04/01/20 02/08/24 Unknown History mg-0.025 mg tablet nadolol 80 mg tablet (Corgard) 80 mg PO TID 04/01/20 02/08/24 11/17/23 06:30 History omeprazole 40 mg capsule,delayed 40 mg PO BEDTIME 04/01/20 02/08/24 Unknown History release pregabalin 150 mg capsule (Lyrica) 150 mg PO BID 04/01/20 02/08/24 Unknown History sertraline 100 mg tablet (Zoloft) 150 mg PO DAILY 04/01/20 02/08/24 Unknown Hi story simvastatin 40 mg tablet 40 mg PO BEDTIME 04/01/20 02/08/24 Unknown History tizanidine 4 mg capsule (Zanaflex) 4 mg PO Q6-8H PRN Muscle Spasm 04/01/20 02/08/24 Unknown History qwnjtfndmb-qdksgqamccxje-bbagqkcr 1 tab PO Q4H PRN migraine 11/11/22 02/08/24 Unknown History 50 mg-325 mg-40 mg tablet lutein 20 mg tablet 20 mg PO DAILY 11/11/22 02/08/24 Unknown History Lactobacillus acidophilus 250 500 mmu cells PO TID 11/02/23 02/08/24 Unknown History million cell capsule (Probiotic Acidophilus) acetaminophen 500 mg tablet 1,000 mg PO Q6H PRN Pain 11/02/23 02/08/24 Unknown History cholecalciferol (vitamin D3) 50 50 mcg PO DAILY 11/03/23 02/08/24 Unknown History mcg (2,000 unit) capsule (Vitamin D3) ondansetron 4 mg disintegrating 4 mg PO Q8H PRN Nausea 11/03/23 02/08/24 Unknown History tablet Exam Exam Date and Time: February 08, 2024 125 Height,Weight and Vital Signs: Height 5 ft 6 in Weight 99.79 kg Height 5 ft 6 in Weight 102.512 kg Vital Signs Temperature 97.3 F 02/08/24 12:52 Pulse Rate 66 02/08/24 12:52 Respiratory Rate 14 02/08/24 12:52 Blood Pressure 96/60 02/08/24 12:52 Pulse Oximetry 96 02/08/24 12:52 Oxygen Delivery Method Room Air 02/08/24 12:52 Temperature 97.3 F 02/08/24 12:52 Pulse Rate 66 02/08/24 12:52 Respiratory Rate 14 02/08/24 12:52 Blood Pressure 96/60 02/08/24 12:52 Pulse Oximetry 96 02/08/24 12:52 Oxygen Delivery Method Room Air 02/08/24 12:52 Airway Mallampati Class: II TM Dist: >3cm Neck ROM: Full Loose/Missing/Broken Teeth: Yes (Right upper molar crowns x broken) Heart: S1S2 Lungs: CTAB Assessment and Plan Assessment Anesthesia Assessment: Anesthesia Plan Discussed and Chart Reviewed Final Anesthetic Review Family History of Problems with Anesthesia: No History of Problems with Anesthesia: No NPO: Yes ASA Class: III Final Preanesthetic Review: No Changes in Pt Med Stat, Meds/Allgs Chart Reviewed, Consent Obtained/Reviewed and Anes Risks/Benef Reviewed Patient Risk: Intermediate Procedure Risk: Low Anesthetic Plan Anesthetic Plan: GA and Agree w/ Assess. and Plan Disposition: Standard PACU
[2024-02-08 14:18] VITALS: BP 95/56; PULSE 66; RESP 16; TEMP 36.1; O2SAT 97
--- NOTE | 2024-02-08 14:32 | P.BOP_ITS ---
Brief Operative Note Date of Service: 02/08/24 Pre-op diagnosis: + Cologuard, GERD, Koo's Post-op diagnosis: other (Hiatal hernia, Gastritis, Colon polyps) Procedure: Colonoscopy to the cecum with multiple hot snare polypectomies(>10), and EGD with biopsies Surgeon: Rafat Fernandez MD Anesthesia: MAC Was an Hotel Services Sales Representative used for this Procedure?: No Estimated blood loss (mL): 2.0 Pathology: other (A. Ascending colon polyps B. Transverse colon polyps C. Polyp at 60cm D. Descending duodenum E. Gastric antrum F. EG Junction at 35cm) Condition: stable Disposition: PACU
[2024-02-08 14:33] VITALS: BP 108/57; PULSE 65; RESP 15; O2SAT 97
[2024-02-08 14:48] VITALS: BP 110/57; PULSE 73; RESP 16; O2SAT 97
[2024-02-08 15:03] VITALS: BP 112/38; PULSE 64; RESP 17; O2SAT 100
[2024-02-08 15:18] VITALS: BP 112/50; PULSE 66; RESP 18; TEMP 36.4; O2SAT 100
--- NOTE | 2024-02-08 16:19 | OP_ITS ---
DATE OF SERVICE: 02/08/2024 SURGEON: Rafat Fernandez MD INDICATIONS: The patient presents for evaluation of positive Cologuard and need for colorectal cancer screening, as well as for history of chronic gastroesophageal reflux, intermittent diarrhea, and history of Koo esophagus. Full consent has been obtained from her for both procedures, including risks of bleeding and perforation. PREOPERATIVE DIAGNOSIS: POSTOPERATIVE DIAGNOSIS: PROCEDURE PERFORMED: Colonoscopy to the cecum with multiple hot snare polypectomies, and esophagogastroduodenoscopy with biopsies. ESTIMATED BLOOD LOSS: COMPLICATIONS: ANESTHESIA: Monitored anesthesia care. ASSISTANTS: SPECIMENS: PREOPERATIVE DIAGNOSES: Positive Cologuard and colorectal cancer screening, gastroesophageal reflux and history of Koo esophagus, intermittent diarrhea. DESCRIPTION OF PROCEDURE: The patient was placed in the left lateral decubitus position. The digital rectal exam revealed no abnormalities other than some external hemorrhoids. The [employer] video pediatric colonoscope was then entered into the rectum and then advanced easily to the cecum. Once in the cecum, I did identify normal-appearing cecal pouch with appendiceal orifice and a normal-appearing ileocecal valve. The entire cecum and ileocecal valve appeared normal. The scope was then slowly withdrawn assessing all mucosal surfaces carefully. For the most part, preparation was very good throughout the colon, although there were some areas of residual liquid and mucus that had to be irrigated and suctioned as best as possible. Throughout most of the colonoscopy, she was somewhat restless with a lot of moving around. However, the procedure was accomplished. In the ascending colon, were multiple, i.e. greater than 8 approximately 1 cm grossly adenomatous polyps, which were all removed by hot snare polypectomy. The great majority were recovered by suction. One or 2 were not recovered. The polypectomy sites were all clean, without any sign of residual polyp nor bleeding. In the transverse colon, were also several polyps, all of which were removed by hot snare polypectomy with at least 2 or 3 recovered by suction. Again, all of the polypectomy sites appeared clean, without any sign of residual polyp nor bleeding. At 60 cm, was an approximately 10 to 12 mm polyp, which was removed by hot snare polypectomy and recovered by suction. The polypectomy site appeared clean, without any sign of residual polyp nor bleeding. There were other smaller approximately 5 mm polyps, which were not removed at this time due to the length of the procedure. I did not visualize any other significant polyps, colitis, nor angiodysplasias. There was a moderate amount of diverticulosis. In the rectum, scope was retroflexed, visualizing internal hemorrhoids, but no other pathology. The rectal mucosa appeared normal. Scope was straightened and withdrawn from the patient. She was turned around for the upper endoscopy. The Olympus video gastroscope was passed in the posterior oropharynx and upper esophagus under direct vision. The scope was passed slowly into the distal esophagus. The gastroesophageal junction appeared at 35 cm. There was some slight areas of irregularity, erythema, edema, and some minimal friability. There was no gross esophagitis. The scope entered the stomach. There was a small hiatal hernia. The proximal stomach did appear to have a chronic gastropathy appearance with some cobblestoning, but there was no evidence of any varices and I do not think this reflected a portal gastropathy. The scope was advanced to the pylorus and the duodenum was cannulated to the descending portion. The duodenum including the bulb appeared normal without mass or ulceration. Biopsies were obtained from the 2nd and 3rd portions of duodenum. The scope was withdrawn back in the stomach. The gastric antrum had some areas of erythema, edema, and minimal friability. There was no erosions or ulceration. There was good peristalsis. Biopsies were obtained from the gastric antrum. The scope was retroflexed, visualizing the proximal stomach carefully, which appeared normal other than the above mentioned gastropathy, without any sign of mass or ulceration. The scope was straightened and withdrawn back to the esophagus. Multiple biopsies were obtained at the EG junction at 35 cm. Proximal to this, the esophageal mucosa appeared normal. The scope was withdrawn from the patient. She tolerated both procedures well and was returned to the recovery area in stable condition. IMPRESSION: 1. Multiple colon polyps. 2. Diverticulosis. 3. Internal and external hemorrhoids. 4. Hiatal hernia, gastroesophageal reflux. 5. Gastritis. 6. Proximal gastropathy. 7. Rule out celiac disease. PLAN: The results of the pathology will be checked. Given the large number of polyps and the somewhat difficult procedure, I would recommend a repeat colonoscopy within 1 year for further screening and surveillance. She was advised not to use any aspirin and NSAIDs for 2 weeks. I would recommend a repeat upper endoscopy in 3 years in regard to the reflux and history of previous Koo's esophagus noted on previous endoscopies. She will continue her omeprazole. If things are otherwise stable, she will see me in the interim on a p.r.n. basis. MD PASCUAL Kelsey/CAMERON / [id number] MTDD
== END 2024-02-08 16:50 | disposition home or self-care (01) ==
PROVIDERS: PCP Internal Medicine; Visit Provider Internal Medicine
PROC: (CPT 45385; principal; 2024-02-08 11:10)
DX: R19.5 Other fecal abnormalities (principal); Z86.010 Personal history of colon polyps; D12.2 Benign neoplasm of ascending colon; D12.3 Benign neoplasm of transverse colon; D12.4 Benign neoplasm of descending colon; K57.30 Diverticulosis of large intestine without perforation or abscess without bleeding; K64.8 Other hemorrhoids; K64.4 Residual hemorrhoidal skin tags; K58.0 Irritable bowel syndrome with diarrhea; K21.9 Gastro-esophageal reflux disease without esophagitis; K22.70 Barrett's esophagus without dysplasia; K44.9 Diaphragmatic hernia without obstruction or gangrene; K29.70 Gastritis, unspecified, without bleeding; K25.9 Gastric ulcer, unspecified as acute or chronic, without hemorrhage or perforation; E78.5 Hyperlipidemia, unspecified; G35 Multiple sclerosis; R56.9 Unspecified convulsions; M79.7 Fibromyalgia; Z79.899 Other long term (current) drug therapy; Z88.2 Allergy status to sulfonamides; Z88.5 Allergy status to narcotic agent; Z88.8 Allergy status to other drugs, medicaments and biological substances; Z98.890 Other specified postprocedural states; F17.210 Nicotine dependence, cigarettes, uncomplicated
CPT/HCPCS: 45385; 43239; 88305; 88313; 88342; J1200; J2250; J2371; J2704; J3010

== ENCOUNTER → 2024-05-09 14:00 | Outpatient (BNV) | payer MEDICARE, SELFPAY | PROVIDERS: PCP Internal Medicine; Visit Provider Internal Medicine | DX: Z12.31 Encounter for screening mammogram for malignant neoplasm of breast (principal) | CPT/HCPCS: 77063; 77067 ==

== ENCOUNTER 2024-05-09 14:27 | Outpatient (REF) | payer MEDICARE, OTHER, SELFPAY ==
--- NOTE | ~2024-05-09 | MM_ITS ---
EXAMINATION: MM SCREENING DIGITAL BREAST TOMOSYNTHESIS, BILATERAL CLINICAL INFORMATION: Screening. Asymptomatic. COMPARISON: Mammography: Comparison is made with available priors TECHNIQUE: Digital breast mammography with tomosynthesis is performed in both the craniocaudal and mediolateral oblique views along with computer-aided detection (CAD). FINDINGS: There are scattered areas of fibroglandular density (ACR BI-RADS breast composition Category b). There are no significant masses, abnormal calcifications, or other abnormalities. MM/MM tomosynthesis screening BI IMPRESSION: No mammographic evidence of malignancy. ASSESSMENT: BI-RADS BI-RADS 1 - Negative RECOMMENDATION: Routine annual mammography screening. 1 year F/U This examination should not preclude the clinical evaluation of a suspicious palpable abnormality. This patient's information was entered into a reminder system with a target due date for their next mammogram. Electronically signed by: Valeria Hanks DO 05/21/2024 09:05 AM SHIV
== END 2024-05-09 14:28 | disposition home or self-care (01) ==
LOC: HO.MAMMO 14:27
PROVIDERS: PCP Internal Medicine; Visit Provider Internal Medicine
DX: Z12.31 Encounter for screening mammogram for malignant neoplasm of breast (principal)
CPT/HCPCS: 77063; 77067

== ENCOUNTER 2025-02-08 15:07 | Outpatient (AMB) | payer MEDICARE, SELFPAY ==
--- NOTE | 2025-02-08 14:56 | A.SPINEOV_ITS ---
Intake Visit Reasons: Follow up Intake Note: Ms. David is here for a F/u after injections Functional Manager Required: No Allergies dimethyl fumarate (From Tecfidera) Allergy (Severe, Verified 02/08/24 12:30) Hives, SOB glatiramer (copolymer 1) (From Copaxone) Allergy (Severe, Verified 02/08/24 12:30) Anaphylaxis Interferons Allergy (Severe, Verified 02/08/24 12:30) Hives meperidine (Demerol) Allergy (Severe, Verified 02/08/24 12:30) hives natalizumab (From Tysabri) Allergy (Severe, Verified 02/08/24 12:30) Hives ocrelizumab (From Ocrevus) Allergy (Severe, Verified 02/08/24 12:30) Anaphylaxis shellfish derived Allergy (Severe, Verified 02/08/24 12:30) Anaphylaxis sulfamethoxazole (From BACTRIM) Allergy (Severe, Verified 02/08/24 12:30) HIVES trimethoprim (From BACTRIM) Allergy (Severe, Verified 02/08/24 12:30) HIVES banana Allergy (Intermediate, Verified 02/08/24 12:30) itchy mouth bupivacaine (From Marcaine) Allergy (Intermediate, Verified 02/08/24 12:30) Blister celecoxib (From CELEBREX) Allergy (Intermediate, Verified 02/08/24 12:30) HIVES darnell (cherries) Allergy (Intermediate, Verified 02/08/24 12:30) itchy mouth chlorzoxazone (Parafon Forte DSC) Allergy (Intermediate, Verified 02/08/24 12:30) hives latex Allergy (Intermediate, Verified 02/08/24 12:30) Hives metoclopramide (Reglan) Allergy (Intermediate, Verified 02/08/24 12:30) hives morphine (MORPHINE) Allergy (Unknown, Verified 02/08/24 12:30) HIVES pentazocine (Talwin) Allergy (Unknown, Verified 02/08/24 12:30) hives Sulfa (Sulfonamide Antibiotics) Allergy (Unknown, Verified 02/08/24 12:30) hives gabapentin Adverse Reaction (Intermediate, Verified 02/08/24 12:30) Hallucinations DISOLVABLE SUTURES Adverse Reaction (Intermediate, Uncoded 02/06/24 15:09) SWELLING, sutures don't dissolve Assessment & Plan Assessment & Plan (1) Lumbar radiculopathy: Code(s): M54.16 - Radiculopathy, lumbar region Category: Medical Plan Olivia comes in today for a subsequent follow up after having Right L3-4 lumbar microdiskectomy completed in November 2022, then a right L5 foraminotomy completed in October of 2023, After he last visit she reported some continued right sided SI joint pain, which she reported she wanted to treat via her chiropractor. She comes in today for evaluation because she has been getting injections with our colleague Dr. Watson, and states that they have not been helping her pain. She also wished to discuss her previous MRI once more. She states that she has been experiencing slowly worsening low back pain and right-sided leg pain for about the past 6 months or so. She has attempted to treat these with injections however they have not been helpful as stated previously. She used to get about 6-8 weeks of pain relief from injections, but is essentially obtaining no relief from her injections now. She is concerned as the compression spine was worse. She denies any numbness/tingling associated with the pain. When describing the pain she is experiencing she states it starts in the low back shoots into her right posterior buttocks and down the lateral aspect of the right leg. Imaging: MRI images from [facility] are not available via the online portal. The patient did not bring an MRI disc with her. Her last MRI was done in March of 2023. Exam: The patient ambulates well with a slightly antalgic gait favoring the left-hand side. Strength of the lower extremities is full. Plan: In the context of continued & worsening pain despite attempted co nservative management with our colleagues at [facility], and two previous lumbar spine surgeries, I would like to obtain a repeat lumbar MRI with gadolinium to evalaute for new or worsening compression in the lumbar spine. I will follow up with her via a phone call when this is complete. Kevin William MD,PhD [facility] [place] [facility] Orders: Orders MR lumbar spine wo/w con Today M54.16 - Radiculopathy, lumbar region Coding Level of Care Code Est Pt Level 2 (96643) Diagnoses Lumbar radiculopathy M54.16
--- OUTSIDE RECORDS SUMMARY | 2025-02-08 15:10 | XMS_ITS ---
Author Name [facility] Organization Unknown Encounters Encounter Type Encounter Reason Primary Diagnosis Location Date Ambulatory [facility] 10/06/2022 Care Team Organization Name Specialty Phone Email Start Date End Da te [facility] 11/26/2022 02/06/20 24 [facility] 10/06/2022 3 [facility] 10/06/2022
--- OUTSIDE RECORDS SUMMARY | 2025-02-08 15:10 | XMS_ITS | Clinical Summary ---
Author Organization [facility] Address [address] [place] [address] Phone Care Team Providers Care Pilot Control Operator Helper Name Role Phone Anusha Barry MD Primary Care Provider [phone] Allergies Active Allergy Reactions Criticality Noted Date Comments Banana 09/29/2015 Celecoxib 09/29/2015 Dimethyl Fumarate 10/27/2015 Glatiramer 09/29/2015 Glatiramer-Mannitol Interferons 09/29/2015 Meperidine 04/02/2016 Metoclopramide 09/29/2015 Morphine 09/29/2015 Natalizumab 09/29/2015 Other 09/29/2015 Vicryl sutures Pentazocine 09/29/2015 Shellfish Containing Products 2015 Sulfa (Sulfonamide Antibiotics) 09/29/2015 Medications pregabalin (LYRICA) 150 mg capsule Take 1 capsule by mouth twice daily. 180 capsule 1 05/07/20 24 Active acetaminophen (TYLENOL) 500 mg tablet 1,000 mg. Prn 04/02/20 16 Active ascorbic acid (VITAMIN C) 500 mg tablet 500 mg daily. 11/26/19 17 Active Bacillus coagulans-inul in 1 billion-250 cell-mg capsule 1-250 mg. Daily 12/09/19 18 Active butalbital-richard taminophen-caf feine (ESGIC) 50-325-40 mg per capsule TAKE 1 TO 2 CAPSULES EVERY 4 HOURS NEEDED 09/29/19 16 Active calcium carbonate (Calcium 600) 1,500 mg (600 mg elemental calcium) tablet 600 mg daily. 11/26/19 17 Active diphenoxylate- atropine (LOMOTIL) 2.5-0.025 mg per tablet TAKE 1 TABLET DAILY NEEDED. Must make appt. for more refiils. 09/29/19 16 Active EPINEPHrine (EpiPen 2-Justino) 0.3 mg/0.3 mL injection INJECT INTO THE SKIN NEEDED FOR OTHER 03/08/20 21 Active insulin syringe-needle U-100 (BD Insulin Syringe) 1 mL 25 x 1 syringe Use one a month for B12 injection,IM 11/25/19 23 Active loratadine (CLARITIN) 10 mg tablet Take 1 Tablet by mouth 2 times daily. 04/09/20 24 Active lutein 20 mg capsule 20 mg daily. 09/29/19 16 Active MAGNESIUM ORAL 200 mg daily. 12/09/19 18 Active ondansetron (ZOFRAN) 4 mg tablet 4 mg. Prn Bid -tid 12/09/19 18 Active tiZANidine (ZANAFLEX) 4 mg tablet Take 1 Tablet by mouth every 6 hours as needed for Muscle spasms for up to 10 days. 05/03/20 22 Active sertraline (ZOLOFT) 100 mg tablet Take 1 tablet (100 mg total) by mouth 1 (one) time each day. 135 tablet 4 08/03/19 25 Active simvastatin (ZOCOR) 40 mg tablet Take 1 tablet (40 mg total) by mouth at bedtime. at bedtime. 90 tablet 12/18/19 25 Active omeprazole (PriLOSEC) [address] capsule Take 1 capsule (40 mg total) by mouth 1 (one) time each day. 90 capsule 12/29/19 25 Active nadoloL (CORGARD) 80 mg tablet Take 1 tablet by mouth three times a day. 270 tablet 01/16/20 25 Active syringe with needle (Eclipse Syringe) 1 mL 25 gauge x 5/8 syringe Inject 1 Dose under the skin 3 (three) times a day. 100 each 3 01/18/20 25 Active cyanocobalamin (VITAMIN B-12) 1,000 mcg/mL injection Inject 1 mL (1,000 mcg total) into the shoulder, thigh, or buttocks every 30 (thirty) days. 3 mL 4 01/29/20 25 Active cyanocobalamin (VITAMIN B-12) 1,000 mcg/mL injection Inject 1 mL (1,000 mcg total) into the shoulder, thigh, or buttocks every 30 (thirty) days. 1 mL 07/26/19 025 Discontinued(Re order) syringe with needle (Eclipse Syringe) 1 mL 25 gauge x 5/8 syringe Inject 1 Dose under the skin 3 (three) times a day. 100 each 3 07/26/19 25 025 Discontinued(Re order) nadoloL (CORGARD) 80 mg tablet Take 1 tablet (80 mg total) by mouth 3 (three) times a day. 270 tablet 1 09/01/19 025 Discontinued cyanocobalamin (VITAMIN B-12) 1,000 mcg/mL injection Inject 1 mL (1,000 mcg total) into the shoulder, thigh, or buttocks every 30 (thirty) days. 1 mL 01/17/20 025 Discontinued(Re order) cyanocobalamin (VITAMIN B-12) 1,000 mcg/mL injection Inject 1 mL (1,000 mcg total) into the shoulder, thigh, or buttocks every 30 (thirty) days. 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 Osteopenia 11/25/2016 Pernicious anemia 11/25/2016 SA node dysfunction ([facility] V24, [facility] V28) 0 11/25/2016 Tubular adenoma of colon 04/02/2016 Migraine headache 10/27/2015 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 Irritable bowel syndrome 09/29/2015 Encounters Date Type Department Care Team Description 01/23/2025 Telephone Internal Medicine [address] [address] Anusha Barry MD Lab order request 01/16/2025 3:30 PM EDT Office Visit Internal Medicine [address] [phone] Anusha Barry MD Mixed hyperlipidemia (Primary Dx); Multiple sclerosis ([facility] V24, [facility] V28); Osteopenia, unspecified location; Adult general medical examination; SA node dysfunction ([facility] V24, [facility] V28) from Last 3 Months Immunizations Name Administration Dates Next Due Hepatitis B (Ybowbga-D-Ebgbt , Recombivax HB-Adult) 19yo and older 09/06/2002 Pneumococcal conjugate 13 va lent (Prevnar 13, PCV13) 2mo and older 04/02/2016 Pneumococcal polysaccharide 23 valent (Pneumovax 23) 2yo and older 05/13/2021 Td, Unspecified 09/04/2002 Tdap Tetanus diptheria acell ular pertussis (Boostrix; Adacel) 7yo and older 03/19/2020 Surgical History Surgery Date Site/Laterality Comments DILATION AND CURETTAGE OF UTERUS PROCEDURE:DILATION AND CURETTAGE OF UTERUS;COMMENT:X 6 APPENDECTOMY PROCEDURE:APPENDECTOMY URETERAL REIMPLANTION PROCEDURE:URETERAL REIMPLANTION BREAST BIOPSY PROCEDURE:BREAST BIOPSY TOTAL ABDOMINAL HYSTERECTOMY W/ BILATERAL SALPINGOOPHORECTOMY PROCEDURE:TOTAL ABDOMINAL HYSTERECTOMY W/ BILATERAL SALPINGOOPHORECTOMY HYSTERECTOMY PROCEDURE:HYSTERECTOMY OTHER SURGICAL HISTORY PROCEDURE:RADIAL HEAD EXCISION HYSTERECTOMY PROCEDURE: HISTORICAL HYSTERECTOMY OOPHORECTOMY PROCEDURE: HISTORICAL OOPHORECTOMY BREAST BIOPSY PROCEDURE: WA BIOPSY BREAST OPEN INCISIONAL; COMMENT: open COLONOSCOPY PROCEDURE: HISTORICAL COLONOSCOPY; COMMENT: no report OTHER SURGICAL HISTORY PROCEDURE: ENDOSCOPY, ERCP, REMOVE FOREIGN OBJ; COMMENT: removal of stones CHOLECYSTECTOMY PROCEDURE: WA LAPAROSCOPY SURG CHOLECYSTECTOMY TONSILLECTOMY ADENOIDECTOMY, BILATERAL MYRINGOTOMY AND TUBES PROCEDURE: WA TONSILLECTOMY & ADENOIDECTOMY <AGE 12 APPENDECTOMY PROCEDURE: WA APPENDECTOMY HERNIA REPAIR PROCEDURE: WA RPR 1ST INGUN HRNA AGE 6 MO-5 YRS REDUCIBLE Medical History Medical History Date Comments MS (multiple sclerosis) ([facility] V24, [facility] V28) DX:MS (multiple sclerosis) ( HCC) Koo esophagus DX:Koo eso phagus Pernicious anemia DX:Pernicious anemia IBS (irritable bowel syndrome) D X:IBS (irritable bowel syndrome) Fibromyalgia DX:Fibromyalgia Ventricular arrhythmia DX:Ventri cular arrhythmia Pure hypercholesterolemia DX:Pur e hypercholesterolemia Cystic fibrosis ([facility] V24, [facility] V28) DX:Cystic fibrosis (HCC) Endometriosis DX:Endometriosis PCOS (polycystic ovarian syndrome) DX:PCOS (polycystic ovarian syndrome) Hyperlipidemia DX:Hyperlipidemi a Esophageal reflux DX:Esophageal reflux Family History Medical History Relation Name Comments No Known Problems Brother Cystic fibrosis Daughter 1 Deep vein thrombosis Daughter 1 No Known Problems Daughter 2 No Known Problems Father No Known Problems Mother No Known Problems Other No Known Problems Sister No Known Problems Son Autoimmune disease Neg Hx Breast cancer Neg Hx Colon cancer Neg Hx Coronary artery disease Neg Hx Diabetes Neg Hx Heart attack Neg Hx Heart failure Neg Hx Hyperlipidemia Neg Hx Hypertension Neg Hx Mental illness Neg Hx Prostate cancer Neg Hx Sleep apnea Neg Hx Thyroid disease Neg Hx Relation Name Status Comments Brother Daughter 1 Daughter 2 Father Mother Other Sister Son Social History Tobacco Use Types Packs/Day Years Used Date Smoking Tobacco: Every Day Smokeless Tobacco: Never Alcohol Use Standard Drinks/Week Comments No 0 (1 standard drink = 0.6 oz pur e alcohol) Housing Instability Answer Date Recorde d Are you worried that in the next 2 months you may not have stable housing? No 01/09/2025 Food Access & Nutrition Answer Date Rec orded Do you have access to a vari ety of food including fruits and vegetables? Yes 01/09/2025 Access to Healthcare Answer Date Record ed Within the last 3 months, ho w many times did you visit the emergency department for your medical care? 0 01/09/2025 Health Literacy Answer Date Recorded How often do you need to hav e someone help you when you read instructions, pamphlets, or other written material from your doctor or pharmacy? Never 01/09/2025 Caregiver: How often do you need to have someone help you when you read instructions, pamphlets, or other written material from your doctor or pharmacy? Not on file 01/09/2025 Financial Risk Answer Date Recorded How hard is it for you to pa y for the very basics like food, housing, medical care, and air conditioning / heating? Hard 01/09/2025 Transportation Answer Date Recorded Has the lack of transportati on kept you from meetings, work, or from getting things needed for daily living? No Has the lack of transportati on kept you from medical appointments or from getting medications? No 01/09/2025 Social Isolation Answer Date Recorded How often do you feel lonely or isolated from th ose around you? Rarely 01/09/2025 Food Risk Answer Date Recorded Within the past 12 months we worried whether our food would run out before we got money to buy more. Never true 01/09/2025 Within the past 12 months th e food we bought just didn't last and we didn't have money to get more. Never true 01/09/2025 Dependent Care Answer Date Recorded Do you need help finding or paying for care for your loved ones. For example, child development director or elderly care for an older adult? No 01/09/2025 Education Answer Date Recorded Do you think completing more education or training, like finishing a GED, going to college, or learning a trade, would be helpful for you? No 01/09/2025 Employment and Income Answer Date Recor ded During the last four weeks, have you been actively looking for work? No 01/09/2025 Living Situation Answer Date Recorded What is your living situation? 0 01/09/2025 Comments Unknown Sex and Gender Information Value Date Recorded Sex Assigned at Female 05/31/2024 3:51 PM EST Legal Sex Female 7:37 AM EST Gender Identity Female 05/31/2024 3:51 PM EST Sexual Orientation Straight 05/31/2024 3: 51 PM EST Obstetrics History Last Filed Vital Signs Vital Sign Reading Time Taken Comments Blood Pressure 128/74 01/16/2025 3:54 PM EDT Pulse 63 01/16/2025 3:54 PM EDT Temperature 36.9 C (98.4 F) 01/16/2025 3:54 PM EDT Respiratory Rate 18 01/16/2025 3:54 PM EDT Oxygen Saturation 97% 01/16/2025 3:54 PM EDT Inhaled Oxygen Concentration - - Weight 103 kg (227 lb) 01/16/2025 3:54 PM EDT Height 168.9 cm (5' 6.5 ) 01/16/2025 3:54 PM EDT Body Mass Index 36.09 01/16/2025 3:54 PM EDT Plan of Treatment Upcoming Encounters Date Type Department Care Team (Late st Contact Info) Description 02/21/2025 2:00 PM EDT Consult [address] [place] [address] Katy Varghese MD [address] [place] [address] 07/24/2025 2:30 PM EST Office Visit Internal Medicine - [place] [address] [place] [address] Anusha Barry MD [address] [facility] [address] [place] [address] Health Maintenance Due Date Last Done Comments Breast Cancer Screening 1955 Hepatitis B Vaccines (2 of 3 - 19+ 3-dose series) 10/04/2002 09/06/2002 Zoster Vaccines (1 of 2) 2004 Falls Risk Assessment 05/29/2022 Osteoporosis Screening (Bone Density Screening) 05/29/2022 COVID-19 Vaccine ( season) 2024 Influenza Vaccine (#1) 2025 8, 04/16/2017, 02/19/2016, Additional history exists Medicare Annual Wellness Visit 04/02/2025 04/02/2024 Social Influencers of Health Screening 01/09/2026 01/09/2025 Cholesterol Screening (Lipid Panel) 11/26/2027 11/25/2022 RSV Immunization Adult Patients (1 - 1-dose 75+ series) 2029 DTaP,Tdap,and Td Vaccines (3 - Td or Tdap) 03/19/2030 03/19/2020, 09/04/2002 Colorectal Cancer Screening: Colonoscopy 02/07/2034 02/08/2024 Hepatitis C Screening Completed 09/04/2002 Pneumococcal Vaccine: 50+ Years Completed 05/13/2021, 04/02/2016 Colorectal Cancer Screening: FIT-DNA (Cologuard) Discontinued 11/15/2023, 11/15/2023, 07/12/2020 Depression Screening Completed 01/09/2025, 04/02/20 24 HIB Vaccines Aged Out No longer eligi ble based on patient's age to complete this topic HPV Vaccines Aged Out No longer eligi ble based on patient's age to complete this topic Hepatitis A Vaccines Aged Out No long er eligible based on patient's age to complete this topic IPV Vaccines Aged Out No longer eligi ble based on patient's age to complete this topic MMR Vaccines Aged Out No longer eligi ble based on patient's age to complete this topic Meningococcal ACWY Vaccine Aged Out N o longer eligible based on patient's age to complete this topic Meningococcal B Vaccine Aged Out No l onger eligible based on patient's age to complete this topic RSV Immunization Patients Under 20 months Aged Out No longer eligible based on patient's age to complete this topic Varicella Vaccines Aged Out No longer eligible based on patient's age to complete this topic Procedures Procedure Name Priority Date/Time Associated Diagnosis Comments DEPRESSION SCREENING Routine 04/02/2024 COLONOSCOPY Routine 02/08/2024 LIPID PANEL Routine 11/25/2022 HEPATITIS C SCREENING Routine 09/04/2002 from Last 3 Months or Most Recently Relevant to Health Maintenance Results * Depression Screening (04/02/2024) Pathologist [facility] Depression Screening Abstracted Historical Provider HEALTH MAINTENANCE Final Result * Colonoscopy (02/08/2024) Pathologist [facility] Colonoscopy No interpretation , Abstracted Anatomical Region Laterality Modality Other [facility] Provider HEALTH MAINTENANCE Final Result * Lipid panel (11/25/2022) [facility] LDL/HDL Ratio 2 0 - 4 Triglycerides 124 0 - 150 mg/dL Cholesterol 154 0 - 200 mg/dL HDL 68 >=40 mg/dL LDL Cholesterol 62 0 - 100 mg/dL Blood Venous blood specimen / Unknown Historical Provider LAB BLOOD ORDERABLES Veronica l Result * Hepatitis C Screening (09/04/2002) Pathologist [facility] Hepatitis C Screening Abstracted Historical Provider HEALTH MAINTENANCE Final Result from Last 3 Months or Most Recently Relevant to Health Maintenance Insurance [employer] MEDICARE ADVANTAGE MEDICAID - [place] Care Teams Pilot Control Operator Helper Relationship Specialty Start Date End Date Anusha Barry MD [address] [facility] [address] [place] [id number] PCP - General Internal Medicine 06/19/24
--- OUTSIDE RECORDS SUMMARY | 2025-02-08 15:10 | XMS_ITS | Clinical Summary ---
Author Organization [facility] Address [address] [place] [address] Care Team Providers Care Accreditation Manager Name Role Phone Anusha Barry MD Primary Care Provider [phone] Social History Tobacco Use Types Packs/Day Years Used Date Smoking Tobacco: Never Assessed Comments Unknown Sex and Gender Information Value Date Recorded Sex Assigned at Not on file Legal Sex Female 6:59 PM EST Gender Identity Not on file Sexual Orientation Not on file Plan of Treatment Health Maintenance Due Date Last Done Comments Hepatitis C Virus Screening 1955 DTaP/Tdap/Td Vaccines (1 - Tdap) 1973 Pneumococcal Vaccines 50+ (1 of 1 - PCV) 2004 Zoster (Shingles) Vaccine (1 of 2) 2004 COVID-19 Vaccine ( - 2023-2 5 season) 2024 RSV Vaccine 60 years and old er and Patients (1 - 1-dose 75+ series) 2029 Hepatitis B Vaccines Aged Out No long er eligible based on patient's age to complete this topic Care Teams Accreditation Manager Relationship Specialty Start Date End Date Anusha Barry MD [address] [place] [address] [address] [place] [address] PCP - General
--- OUTSIDE RECORDS SUMMARY | 2025-02-08 15:10 | XMS_ITS | Clinical Summary ---
Author Organization [facility] Address [address] [place] [address] Care Team Providers Care Case Management Coordinator Name Role Phone Anusha Barry MD Primary Care Provider [phone] Allergies Active Allergy Reactions Criticality Noted Date Comments Celecoxib 09/29/2015 Dimethyl Fumarate 10/27/2015 Interferons 09/29/2015 Meperidine 04/02/2016 Metoclopramide 09/29/2015 Morphine 09/29/2015 Natalizumab 09/29/2015 Sulfa Antibiotics 09/29/2015 Medications Medication Sig Dispensed Refills Start Date End Date Status dalfampridine ER (AMPYRA) 10 MG 12 hr tablet Take 1 tablet by mouth 2 (two) times a day. 0 12/02/2021 Active EPINEPHrine 0.3 MG/0.3ML SOSY INJECT INTO THE SKIN NEEDED FOR OTHER 0 03/08/2021 Active ascorbic acid (VITAMIN C) 500 MG tablet Take 500 mg by mouth daily. 0 11/25/2016 Active simvastatin (ZOCOR) tablet 40 mg Take 1 tablet by mouth every night at bedtime. 0 08/24/2021 Active sertraline (ZOLOFT) 100 MG tablet 100 mg. 0 09/29/2015 Active diazePAM (VALIUM) 10 MG tablet TAKE 1 TABLET BY MOUTH AT BEDTIME. MAY REPEAT ONE TIME IF NEEDED 0 11/22/2021 Active ergocalciferol (VITAMIN D2) capsule 46305 units TAKE 1 CAPSULE BY MOUTH 1 TIME A WEEK 0 11/18/2021 Active ondansetron (ZOFRAN) 4 MG tablet 4 mg. 0 12/08/2017 Active Lutein 20 MG CAPS 20 mg. 0 09/29/2015 Active nadolol (CORGARD) 80 MG tablet Take 80 mg by mouth daily. 0 Active tiZANidine (ZANAFLEX) 4 MG tablet 4 mg. 0 09/29/2015 Active omeprazole (PriLOSEC) 40 MG capsule Take 40 mg by mouth daily. 0 11/22/2021 Active Acetaminophen 500 MG PACK Take by mouth. 0 Active nicotine (NICODERM CQ) 14 MG/24HR Place 1 patch onto the skin. 0 02/08/2021 Active diphenoxylate-atropine (LOMOTIL) 2.5-0.025 MG per tablet TAKE 1 TABLET DAILY NEEDED. Must make appt. for more refiils. 0 09/29/2015 Active botulinum toxin type A (BOTOX) 200 units SOLR injection 200 Units. 0 09/29/2015 Active pregabalin (LYRICA) capsule 150 mg Take 150 mg by mouth 2 (two) times a day. 0 11/25/2021 Active Cannabidiol 100 MG/ML SOLN Take 500 mg by mouth. 0 Active cyanocobalamin (VITAMIN B12) 1000 MCG/ML injection INJECT 1ML INTO THE MUSCLE EVERY 30 DAYS. 0 01/23/2020 Active Family History Medical History Relation Name Comments Cystic fibrosis Daughter Deep vein thrombosis Daughter Relation Name Status Comments Daughter Social History Tobacco Use Types Packs/Day Years Used Date Smoking Tobacco: Never Smokeless Tobacco: Never Alcohol Use Standard Drinks/Week Comments Never 0 (1 standard drink = 0.6 oz pur e alcohol) Sex and Gender Information Value Date Recorded Sex Assigned at Female 12/29/2021 1:06 PM EDT Gender Identity Not on file Sexual Orientation Not on file Job Start Date Occupation Industry Not on file Not on file Not on file Last Filed Vital Signs Vital Sign Reading Time Taken Comments Blood Pressure 101/64 12/29/2021 1:15 PM EDT Pulse 57 12/29/2021 1:15 PM EDT Temperature 36.2 C (97.2 F) 12/29/2021 1:15 PM EDT Respiratory Rate 16 12/29/2021 1:15 PM EDT Oxygen Saturation 95% 12/29/2021 1:15 PM EDT Inhaled Oxygen Concentration - - Weight 107 kg (236 lb) 12/29/2021 1:15 PM EDT Height 167.6 cm (5' 6 ) 12/29/2021 1:15 PM EDT Body Mass Index 38.09 12/29/2021 1:15 PM EDT Plan of Treatment Health Maintenance Due Date Last Done Comments Hepatitis C Screening 1955 COVID-19 Vaccine (#1) 01[birth year]19/1955 Depression Screening 1966 Preventative Health Evaluation 1972 Colon Cancer Screening (Colonoscopy) 1999 Breast Cancer Screening (Mammogram) 2004 Shingrix-Zoster Vaccine (1 o f 2) 2004 Fall Risk Assessment 2019 Osteoporosis Screening (DEXA Scan) 2019 Influenza Vaccine (#1) 2025 RSV Adult > 60+ Yrs or (1 - 1-dose 75+ series) 2029 DTap / Tdap / Td (2 - Td or Tdap) 03/19/2030 03/19/2020 Pneumococcal Vaccine Completed 05/13/2021, 04/02/2016 Hepatitis B Vaccines Aged Out No long er eligible based on patient's age to complete this topic RSV Ped < 20 months Aged Out No longe r eligible based on patient's age to complete this topic Care Teams Case Management Coordinator Relationship Specialty Start Date End Date Anusha Barry MD [address] [facility] [address] [place] [address] PCP - General Internal Medicine 10/23/20
--- OUTSIDE RECORDS SUMMARY | 2025-02-08 15:10 | XMS_ITS | Patient Health Record ---
Author Organization [facility] Address [address] [place] [id number] Care Team Providers Care Supervisor Industrial Garment Name Role Phone Anusha Barry Primary Care Provider Rafat Jose [phone] Allergies Allergen (clinical drug ingredient) Drug/Non Drug Allergy documented on EMR Reaction Allergy Type Onset Date Status meperidine Demerol Unknown Drug Allergy Active glatiramer Copaxone Unknown Drug Allergy Active celecoxib CeleBREX Unknown Drug Allergy Active sulfamethoxazole / trimethoprim Bactrim Unknown Drug Allergy Active dissolvable sutures (uncoded) Unknown Allergy Active Tecfidera Tecfidera Unknown Drug Allergy Active interferon molly-2a Interferon Molly-2a Unknown Drug Allergy Active ocrelizumab Ocrevus Unknown Drug Allergy Activ e shrimp allergenic extract Shrimp (Diagnostic) Unknown Drug Allergy Active Sulfa Unknown Drug Allergy Active natalizumab Tysabri Unknown Drug Allergy Activ e Talwin Unknown Drug Allergy Active metoclopramide Reglan Unknown Drug Allergy Ac tive Parafon Forte DSC Unknown Drug Allergy Active morphine Morphine Sulfate Unknown Drug Allergy Active sumatriptan Imitrex Unknown Drug Allergy Activ e Reason For Referral No Information Medications Medication SIG (Take, Route, Frequency, Duration) Notes Start Date End Date Status Fioricet Not-Taking Lyrica 150 MG 1 capsule Orally Twice a day Active Corgard 80mg Active Zoloft 150mg Active Simvastatin 40 MG Oral for 90 Active Krill Oil Not-Taking Cyanocobalamin 1000 MCG/ML INJECT 1 ML INTO THE MUSCLE EVERY 30 DAYS Injection for 84 Active Lutein 20 For macular degeneration Active tylenol Not-Taking CoQ-10 Not-Taking Zanaflex 8mg Active Vitamin D (Ergocalciferol) 50 MCG (1999 UT) 1 capsule Orally Active Omeprazole 40 MG 1 capsule Orally Once a day for 90 Active Lomotil 2.5-0.025 MG 1 or 2 Orally Every 6 hours as needed for diarrhea for 30 days PRN 05/04/2023 Active Immunizations Vaccine Route Administration Date Status Comme nts Influenza Unknown 04/19/2019 Administered Social History Tobacco Use: Social History Observation Description Date Details (start date - stop date) Current Smoker NA - NA Tobacco Use/Smoking Question Answer Notes Patient is a current smoker How often do you smoke cigarettes? every day How many cigarettes a day do you smoke? 5 or les s Alcohol Screen Question Answer Notes Did you have a drink containing alcohol in the p ast year? 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) Active confirmed Problem 834052407 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) Active confirmed Problem Diverticular disease of colon (900015730) Diverticulosis of large intestine without perforation or abscess without bleeding (K57.30) Active confirmed Problem 527916752 Elevated liver function tests (R79.89) Active confirmed Problem 931966906 Gastroesophageal reflux disease without esophagitis (K21.9) Active confirmed Problem Gastritis (4631173) Gastritis (K29.70) Active c onfirmed Problem 921561195 Abdominal pain, right upper quadrant (R10.11) Active confirmed Problem Koo esophagus (190113199) Koo esophagus (K22.70) Active confirmed Problem 336457831 RUQ abdominal pa in (R10.11) Active confirmed Problem Gastric ulcer (197075271) Gastric ulcer (K25.9) Active confirmed Problem Koo's esophagus (921399280) Koo''s esophagus without dysplasia (K22.70) Active confirmed Problem Abnormal feces (847668455) Positive colorectal cancer screening using Cologuard test (R19.5) Active confirmed Problem Gastroesophageal reflux disease (disorder) (314762621) Chronic GERD (K21.9) Active confirmed Vital Signs Blood pressure diastolic 11 mm Hg 10/02/2024 Height 66 in 10/02/2024 Blood pressure systolic 111 mm Hg 10/02/2024 Weight 229 lbs 10/02/2024 BMI 36.96 kg/m2 10/02/2024 Encounters Encounter Location Date Provider Diagnosis [facility] [address] [place] [phone] 10/02/2024 Rafat Fernandez Gastroesophageal ref lux disease without esophagitis K21.9 ; Koo's esophagus without dysplasia K22.70 ; Encounter for screening for malignant neoplasm of colon Z12.11 ; History of adenomatous polyp of colon Z86.010 and Elevated liver function tests R79.89 [facility] [address] [place] [phone] 10/02/2024 Rafat Fernandez Assessments Encounter Date Diagnosis (ICD Code) Assessment Notes Treatment Notes Treatment Clinical Notes Section Notes 10/02/2024 Gastroesophageal reflux disease without esophagitis (ICD-10 - K21.9) Overall, Olivia appears well from a GI standpoint and is not having any new or worrisome GI complaints. We did review the results of her GI procedures from last summer. I advised her of the need for a follow-up upper endoscopy in 2026 for the Koo's esophagus. I did advise her to continue her daily PPI for symptomatic relief of reflux. In regard to the colonoscopy findings I did review with her that there were multiple polyps which were fairly large and ranged from tubular adenomas to sessile serrated polyps. Based on that, I recommended a follow-up colonoscopy for May which would be 1 year after the previous one. Given the number and size of the polyps, the types of polyps, and the fact that the procedure was somewhat difficult, would lead me to recommend the 1 year follow-up as opposed to a longer interval. We did review the rationale for this in regard to colorectal cancer prevention and/or early detection. Nonetheless, Olivia wanted to hold off on that until perhaps next summer. In regard to the reported elevated LFTs she does have a history of elevated LFTs in the past with a completely negative workup. I shall repeat a liver profile today along with a CBC. We did review that the elevated LFTs are most certainly related to underlying fatty liver in relation to weight, diet, and other risk factors such as hyperlipidemia . I do not think she needs any imaging study at the present time. I will plan to see her again in 1 year for a follow-up visit at which time we could then hopefully schedule her follow-up colonoscopy if she allows that. I did advise her to certainly call me in the interim if she has any problems or questions I can be of assistance with. Olivia was comfortable with this plan. Thank you again for allowing me to participate in Olivia's care. I shall continue to keep you advised of her progress. 10/02/2024 Koo's esophagus without dysplasia (ICD-10 - K22.70) Overall, Olivia appears well from a GI standpoint and is not having any new or worrisome GI complaints. We did review the results of her GI procedures from last summer. I advised her of the need for a follow-up upper endoscopy in 2026 for the Koo's esophagus. I did advise her to continue her daily PPI for symptomatic relief of reflux. In regard to the colonoscopy findings I did review with her that there were multiple polyps which were fairly large and ranged from tubular adenomas to sessile serrated polyps. Based on that, I recommended a follow-up colonoscopy for May which would be 1 year after the previous one. Given the number and size of the polyps, the types of polyps, and the fact that the procedure was somewhat difficult, would lead me to recommend the 1 year follow-up as opposed to a longer interval. We did review the rationale for this in regard to colorectal cancer prevention and/or early detection. Nonetheless, Olivia wanted to hold off on that until perhaps next summer. In regard to the reported elevated LFTs she does have a history of elevated LFTs in the past with a completely negative workup. I shall repeat a liver profile today along with a CBC. We did review that the elevated LFTs are most certainly related to underlying fatty liver in relation to weight, diet, and other risk factors such as hyperlipidemia . I do not think she needs any imaging study at the present time. I will plan to see her again in 1 year for a follow-up visit at which time we could then hopefully schedule her follow-up colonoscopy if she allows that. I did advise her to certainly call me in the interim if she has any problems or questions I can be of assistance with. Olivia was comfortable with this plan. Thank you again for allowing me to participate in Olivia's care. I shall continue to keep you advised of her progress. 10/02/2024 Encounter for screening for malignant neoplasm of colon (ICD-10 - Z12.11) Repeat colonoscopy for 01/2026 Overall, Olivia appears well from a GI standpoint and is not having any new or worrisome GI complaints. We did review the results of her GI procedures from last summer. I advised her of the need for a follow-up upper endoscopy in 2026 for the Koo's esophagus. I did advise her to continue her daily PPI for symptomatic relief of reflux. In regard to the colonoscopy findings I did review with her that there were multiple polyps which were fairly large and ranged from tubular adenomas to sessile serrated polyps. Based on that, I recommended a follow-up colonoscopy for May which would be 1 year after the previous one. Given the number and size of the polyps, the types of polyps, and the fact that the procedure was somewhat difficult, would lead me to recommend the 1 year follow-up as opposed to a longer interval. We did review the rationale for this in regard to colorectal cancer prevention and/or early detection. Nonetheless, Olivia wanted to hold off on that until perhaps next summer. In regard to the reported elevated LFTs she does have a history of elevated LFTs in the past with a completely negative workup. I shall repeat a liver profile today along with a CBC. We did review that the elevated LFTs are most certainly related to underlying fatty liver in relation to weight, diet, and other risk factors such as hyperlipidemia . I do not think she needs any imaging study at the present time. I will plan to see her again in 1 year for a follow-up visit at which time we could then hopefully schedule her follow-up colonoscopy if she allows that. I did advise her to certainly call me in the interim if she has any problems or questions I can be of assistance with. Olivia was comfortable with this plan. Thank you again for allowing me to participate in Olivia's care. I shall continue to keep you advised of her progress. 10/02/2024 History of adenomatous polyp of colon (ICD-10 - Z86.010) Overall, Olivia appears well from a GI standpoint and is not having any new or worrisome GI complaints. We did review the results of her GI procedures from last summer. I advised her of the need for a follow-up upper endoscopy in 2026 for the Koo's esophagus. I did advise her to continue her daily PPI for symptomatic relief of reflux. In regard to the colonoscopy findings I did review with her that there were multiple polyps which were fairly large and ranged from tubular adenomas to sessile serrated polyps. Based on that, I recommended a follow-up colonoscopy for May which would be 1 year after the previous one. Given the number and size of the polyps, the types of polyps, and the fact that the procedure was somewhat difficult, would lead me to recommend the 1 year follow-up as opposed to a longer interval. We did review the rationale for this in regard to colorectal cancer prevention and/or early detection. Nonetheless, Olivia wanted to hold off on that until perhaps next summer. In regard to the reported elevated LFTs she does have a history of elevated LFTs in the past with a completely negative workup. I shall repeat a liver profile today along with a CBC. We did review that the elevated LFTs are most certainly related to underlying fatty liver in relation to weight, diet, and other risk factors such as hyperlipidemia . I do not think she needs any imaging study at the present time. I will plan to see her again in 1 year for a follow-up visit at which time we could then hopefully schedule her follow-up colonoscopy if she allows that. I did advise her to certainly call me in the interim if she has any problems or questions I can be of assistance with. Olivia was comfortable with this plan. Thank you again for allowing me to participate in Olivia's care. I shall continue to keep you advised of her progress. 10/02/2024 Elevated liver function tests (ICD-10 - R79.89) Overall, Olivia appears well from a GI standpoint and is not having any new or worrisome GI complaints. We did review the results of her GI procedures from last summer. I advised her of the need for a follow-up upper endoscopy in 2026 for the Koo's esophagus. I did advise her to continue her daily PPI for symptomatic relief of reflux. In regard to the colonoscopy findings I did review with her that there were multiple polyps which were fairly large and ranged from tubular adenomas to sessile serrated polyps. Based on that, I recommended a follow-up colonoscopy for May which would be 1 year after the previous one. Given the number and size of the polyps, the types of polyps, and the fact that the procedure was somewhat difficult, would lead me to recommend the 1 year follow-up as opposed to a longer interval. We did review the rationale for this in regard to colorectal cancer prevention and/or early detection. Nonetheless, Olivia wanted to hold off on that until perhaps next summer. In regard to the reported elevated LFTs she does have a history of elevated LFTs in the past with a completely negative workup. I shall repeat a liver profile today along with a CBC. We did review that the elevated LFTs are most certainly related to underlying fatty liver in relation to weight, diet, and other risk factors such as hyperlipidemia . I do not think she needs any imaging study at the present time. I will plan to see her again in 1 year for a follow-up visit at which time we could then hopefully schedule her follow-up colonoscopy if she allows that. I did advise her to certainly call me in the interim if she has any problems or questions I can be of assistance with. Olivia was comfortable with this plan. Thank you again for allowing me to participate in Olivia's care. I shall continue to keep you advised of her progress. Plan Of Treatment Pending Test Test Name Order Date LIVER PROFILE 06/05/2014 LIVER PROFILE 07/28/2017 LIVER PROFILE 10/02/2024 LIVER PROFILE 09/13/2016 LIVER PROFILE 05/06/2015 LIVER PROFILE 06/26/2014 LIVER PROFILE 02/28/2020 LIVER PROFILE 06/24/2014 AMYLASE 06/24/2014 AMYLASE 07/28/2017 AMYLASE 09/13/2016 AMYLASE 05/06/2015 AMYLASE 06/26/2014 LIPASE 06/26/2014 LIPASE 06/24/2014 LIPASE 07/28/2017 LIPASE 09/13/2016 LIPASE 02/28/2020 LIPASE 05/06/2015 CBC w DIFF 02/28/2020 CBC w DIFF 05/06/2015 CBC w DIFF 06/26/2014 CBC w DIFF 06/24/2014 CBC w DIFF 10/02/2024 CBC w DIFF 07/28/2017 CBC with MANUAL DIFFERENTIAL 09/13/2016 MRI ABD NO CONTRAST (MRCP) 06/05/2014 Pathology 02/08/2024 Future Test Test Name Order Date UPPER GI ENDOSCOPY 04/03/2013 COLONOSCOPY 04/03/2013 UPPER GI ENDOSCOPY 02/28/2020 UPPER GI ENDOSCOPY 12/18/2023 COLONOSCOPY 12/18/2023 Next Appt Details Provider Name:Rafat Fernandez , 10/02/2025 02:00:00 PM, [address], [address], [place], [address], Insurance Providers Payer Name Payer Address Payer Phone Subscriber Number Group Number Insured Name Patient Relationship to Insured Coverage Start Date Coverage End Date [facility] [email or web address] [address] [place], [place] [id number] OLIVIA ROLLINS Self - patient is the insured MEDICA[employer] OF [employer] [address] [place] [id number] OLIVIA ROLLINS Self - patient is the insured Medical (General) History Medical History History ICD Code MULTIPLE SCLEROSIS-Dr. Shireen fatima--has muscle spasms and receives Botox Q 3 months Hyperlipidemia Gastroesophageal reflux dise ase (GERD) with Koo's esophagus- EGD in [id number]-[facility]--no dysplasia; gastritis-no H.pylori; duodenal bx neg for celiac disease Irritable bowel syndrome--predominantly diarrhea Tachycardia-SVT/PVC's- - on Corgard Depression/OCD Migraines Pernicious anemia Denies OR,DM,CVA,Lung disease,renal dise ase Colonoscopy in 08/2008-1 small tubular ad enoma-bx neg for microscopic colitis Colonoscopy in August of 2013 revealed a small tubular adenoma that was removed, as well as some diverticulosis and hemorrhoids Koo's esophagus--upper e ndoscopy in August of 2013 revealed a small area of Koo's mucosa, with biopsies negative for dysplasia--also noted was her hiatal hernia 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 of CBD stones/sludge- [facility] 05[facility] after the episode of pain revealed a common bile duct of 10 mm but without any stones and normal appearing pancreas--we presumed that she passed a small stone or sludge and she did not have an ERCP Fibromyalgia She describes treatment for chronic Lyme 's disease Elevated LFTs with a negativ e workup in May 2014 including viral serologies, iron studies, [id number] level, and autoimmune studies Upper endoscopy in 03/2020 r evealed her known hiatal hernia, small area of Koo's esophagus without dysplasia, and a small gastric ulcer with gastric biopsies negative for H. pylori. She reports a negative Cologuard test in either 2020 or 2021 with her PCP. EGD 01/2024 with small area o f Koo's with bx neg for dysplasia; bx also neg for celiac disease and H.pylori Colonoscopy 01/2024 with mult iple > 1cm polyps-tubular adenomas and serrated polyps Surgical History Surgery Date(Month/Year) BACK SURGERY 1 ovary removed hemorrhoidectomy ureteral reimplantation hysterectomy benign breast biopsies surgery for meckel's diverticulum ELBOW SURGERY cholecystectomy age 18 for multiple gall stones appendectomy
== END 2025-02-08 15:24 | disposition home or self-care (01) ==
LOC: HO.HNS 15:07
PROVIDERS: PCP Internal Medicine; Visit Provider Physician Assistant
DX: M54.16 Radiculopathy, lumbar region (principal)
CPT/HCPCS: 99212

== ENCOUNTER → 2025-02-08 15:07 | Outpatient (BNVA) | payer MEDICARE, SELFPAY | PROVIDERS: PCP Internal Medicine; Visit Provider Physician Assistant | DX: M54.16 Radiculopathy, lumbar region (principal) | CPT/HCPCS: 99212 ==

== ENCOUNTER 2025-03-08 15:19 | Outpatient (AMB) | payer MEDICARE, SELFPAY ==
--- OUTSIDE RECORDS SUMMARY | 2025-03-08 15:21 | XMS_ITS | Clinical Summary ---
Author Organization [facility] Address [address] [place] [address] Care Team Providers Care English As A Second Language Instructor Name Role Phone Anusha Barry MD Primary Care Provider [phone] Social History Tobacco Use Types Packs/Day Years Used Date Smoking Tobacco: Never Assessed Comments Unknown Sex and Gender Information Value Date Recorded Sex Assigned at Not on file Legal Sex Female 6:59 PM EST Gender Identity Not on file Sexual Orientation Not on file Plan of Treatment Health Maintenance Due Date Last Done Comments Advance Care Planning 1955 Hepatitis C Virus Screening 1955 DTaP/Tdap/Td Vaccines (1 - Tdap) 1973 Pneumococcal Vaccines 50+ (1 of 1 - PCV) 2004 Zoster (Shingles) Vaccine (1 of 2) 2004 COVID-19 Vaccine ( - 2023-2 5 season) 2025 RSV Vaccine 60 years and old er and Patients (1 - 1-dose 75+ series) 2029 Hepatitis B Vaccines Aged Out No long er eligible based on patient's age to complete this topic Care Teams English As A Second Language Instructor Relationship Specialty Start Date End Date Anusha Barry MD [address] [facility] [address] [place] [address] PCP - General
--- OUTSIDE RECORDS SUMMARY | 2025-03-08 15:21 | XMS_ITS | Clinical Summary ---
Author Organization [facility] Address [address] [place] [address] Care Team Providers Care Event Mgr Name Role Phone Anusha Barry MD Primary Care Provider [phone] Allergies Active Allergy Reactions Criticality Noted Date [...] 0 11/22/2021 Active ergocalciferol (VITAMIN D2) capsule 21660 units TAKE 1 CAPSULE BY MOUTH 1 [...] age to complete this topic Care Teams Event Mgr Relationship Specialty Start Date End Date Anusha Barry MD [address] [facility] [address] [place] [address] PCP - General Internal Medicine 10/23/20
--- OUTSIDE RECORDS SUMMARY | 2025-03-08 15:21 | XMS_ITS | Clinical Summary ---
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 180 capsule 1 4 Active acetaminophen (TYLENOL) 500 mg tablet 1,000 mg. Prn 6 Active ascorbic acid (VITAMIN C) 500 mg tablet 500 mg daily. 7 Active Bacillus coagulans-inul in 1 billion-250 cell-mg capsule 1-250 mg. Daily 8 Active butalbital-richard taminophen-caf feine (ESGIC) 50-325-40 mg per capsule TAKE 1 TO 2 CAPSULES EVERY 4 HOURS NEEDED 6 Active calcium carbonate (Calcium 600) 1,500 mg (600 mg elemental calcium) tablet 600 mg daily. 7 Active diphenoxylate- atropine (LOMOTIL) 2.5-0.025 mg per tablet TAKE 1 TABLET DAILY NEEDED. Must make appt. for more refiils. 6 Active EPINEPHrine (EpiPen 2-Justino) 0.3 mg/0.3 mL injection INJECT INTO THE SKIN NEEDED FOR OTHER 1 Active insulin syringe-needle U-100 (BD Insulin Syringe) 1 mL 25 x 1 syringe Use one a month for B12 injection,IM 3 Active loratadine (CLARITIN) 10 mg tablet Take 1 Tablet by mouth 2 times daily. 4 Active lutein 20 mg capsule 20 mg daily. 6 Active MAGNESIUM ORAL 200 mg daily. 8 Active ondansetron (ZOFRAN) 4 mg tablet 4 mg. Prn Bid -tid 8 Active tiZANidine (ZANAFLEX) 4 mg tablet Take 1 Tablet by mouth every 6 hours as needed for Muscle spasms for up to 10 days. 2 Active sertraline (ZOLOFT) 100 mg tablet Take 1 tablet (100 mg total) by mouth 1 (one) time each day. 135 tablet 4 5 Active nadoloL (CORGARD) 80 mg tablet Take 1 tablet by mouth three times a day. 270 tablet 5 Active syringe with needle (Eclipse Syringe) 1 mL 25 gauge x 5/8 syringe Inject 1 Dose under the skin 3 (three) times a day. 100 each 3 5 Active cyanocobalamin (VITAMIN B-12) 1,000 mcg/mL injection Inject 1 mL (1,000 mcg total) into the shoulder, thigh, or buttocks every 30 (thirty) days. 3 mL 4 5 Active simvastatin (ZOCOR) 40 mg tablet Take 1 tablet by mouth at bedtime. 90 tablet 5 Active omeprazole (PriLOSEC) [address] capsule Take 1 capsule by mouth once daily. 90 capsule 5 Active simvastatin (ZOCOR) 40 mg tablet Take 1 tablet (40 mg total) by mouth at bedtime. at bedtime. 90 tablet 5 09/08/2 025 Discontinued omeprazole (PriLOSEC) [address] capsule Take 1 capsule (40 mg total) by mouth 1 (one) time each day. 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 Irritable bowel syndrome 09/29/2015 Encounters Date Type Department Care Team Description 02/15/2025 3:20 PM EDT - 02/15/2025 11:59 PM EDT Hospital Encounter [facility] MRI [address] [place] [id number] Radiculopathy, lumbar region Discharge Disposition: Home or Self Care 01/23/2025 Telephone Internal Medicine [facility] [address] [facility] [address] [place] [address] Anusha Barry MD 01/16/2025 3:30 PM EDT Office Visit Internal Medicine [facility] [address] [facility] [address] [place] [id number] Anusha Barry MD Mixed hyperlipidemia (Primary Dx); Multiple sclerosis ([facility] V24, [facility] V28); Osteopenia, unspecified location; Adult general medical examination; SA node dysfunction ([facility]/HCC V24, CMS/HCC V28) from Last 3 Months Immunizations Name Administration Dates Next Due Hepatitis B (Rosbmeq-T-Swozx , Recombivax HB-Adult) 19yo and older 09/06/2002 [...] OOPHORECTOMY PROCEDURE: HISTORICAL OOPHORECTOMY BREAST BIOPSY PROCEDURE: IL BIOPSY BREAST OPEN INCISIONAL; COMMENT: open COLONOSCOPY PROCEDURE: HISTORICAL COLONOSCOPY; COMMENT: no report OTHER SURGICAL HISTORY PROCEDURE: ENDOSCOPY, ERCP, REMOVE FOREIGN OBJ; COMMENT: removal of stones CHOLECYSTECTOMY PROCEDURE: IL LAPAROSCOPY SURG CHOLECYSTECTOMY TONSILLECTOMY ADENOIDECTOMY, BILATERAL MYRINGOTOMY AND TUBES PROCEDURE: IL TONSILLECTOMY & ADENOIDECTOMY <AGE 12 APPENDECTOMY PROCEDURE: IL APPENDECTOMY HERNIA REPAIR PROCEDURE: IL RPR 1ST INGUN HRNA AGE 6 MO-5 YRS REDUCIBLE Medical History Medical History Date Comments MS (multiple sclerosis) DX:MS (m ultiple sclerosis) (HCC) Koo esophagus DX:Koo eso phagus Pernicious anemia DX:Pernicious anemia IBS (irritable bowel syndrome) D X:IBS (irritable bowel syndrome) Fibromyalgia DX:Fibromyalgia Ventricular arrhythmia DX:Ventri cular arrhythmia Pure hypercholesterolemia DX:Pur e hypercholesterolemia Cystic fibrosis (CMS/HCC V24, CMS/HCC V28) DX:Cystic fibrosis (HCC) Endometriosis DX:Endometriosis PCOS [...] care for your loved ones. For example, assistant child care teacher or elderly care for an older adult? [...] Care Team (Late st Contact Info) Description 07/24/2025 2:30 PM EST Office Visit Internal Medicine - [place] [address] [facility] [address] [place] [address] Anusha Barry MD [address] [facility] [address] [place] [address] Health Maintenance Due Date Last Done Comments Breast Cancer Screening 1955 Hepatitis B Vaccines (2 of 3 - 19+ 3-dose series) 10/04/2002 09/06/2002 Zoster Vaccines (1 of 2) 2004 Falls Risk Assessment 05/29/2022 Osteoporosis Screening (Bone Density Screening) 05/29/2022 COVID-19 Vaccine ( season) 2025 Influenza Vaccine (#1) 2025 8, 04/16/2017, 02/19/2016, [...] 11/15/2023, 07/12/2020 Depression Screening Completed 01/09/2025, 04/02/20 HIB Vaccines Aged Out No longer eligi [...] Procedure Name Priority Date/Time Associated Diagnosis Comments MR LUMBAR SPINE WO AND W CONTRAST Routine 02/15/2025 5:15 PM EDT Radiculopathy, lumbar region DEPRESSION SCREENING Routine 04/02/2024 COLONOSCOPY Routine 02/08/2024 LIPID PANEL Routine 11/25/2022 HEPATITIS C SCREENING Routine 09/04/2002 from Last 3 Months or Most Recently Relevant to Health Maintenance Results * MR Lumbar Spine wo and w Contrast (02/15/2025 5:15 PM EDT) Anatomical Region Laterality Modality L-spine, Spine Magnetic Resonan ce 02/19/2025 7:55 PM EDT Impressions 02/19/2025 8:07 PM EDT 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 Degenerative and postsurgical changes throughout the lumbar spine, similar compared to 06/29/2024 -------- FINAL REPORT -------- Dictated By: VELMA SOLANO Dictated Date: 02/19/2025 19:55 ET Assigned Physician: VELMA SOLANO Reviewed and Electronically Signed By: VELMA SOLANO Signed Date: 02/19/2025 20:07 ET Workstation ID: [id number] Transcribed By: Self Edit Transcribed Date: 02/19/2025 19:55 ET Narrative 02/19/2025 8:07 PM EDT PROCEDURE: Lumbar spine MRI INDICATION: Pain TECHNIQUE: Multiplanar, multisequence MRI of the Lumbar spine without and with contrast. 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 Lumbar lordosis is maintained. Dextroconvex thoracolumbar curvature is unchanged. No fracture or suspicious marrow replacing lesion. Multilevel degenerative loss of normal disc height and signal with associated degenerative endplate spurring. Lower lumbar predominant degenerative facet arthritis, most pronounced on the right at L4-5 and L5-S1, similar compared to prior. Conus medullaris is normal and terminates at L1-2. No epidural collection or mass is seen within the spinal canal. No abnormal enhancement. Paraspinal muscles are within normal limits. Bilateral renal cysts. Findings by level: L1-2: No foraminal or spinal canal stenosis. L2-3: No foraminal or spinal canal stenosis. L3-4: Bilateral facet arthropathy ligamentum flavum thickening. Diffuse disc bulge with endplate spurring, eccentric to the left. Superimposed small left far lateral protrusion is unchanged. Moderate foraminal stenosis bilaterally, left greater than right. L4-5: Diffuse disc bulge, eccentric to the right, with endplate spurring. Superimposed right paracentral/foraminal protrusion is unchanged. Right greater than left facet arthropathy. Right laminotomy. Severe right and mild left foraminal stenosis, unchanged. Mild spinal canal stenosis with effacement of the right subarticular zone, unchanged. L5-S1: Diffuse disc bulge with right greater than left facet arthropathy. Moderate right and mild left foraminal stenosis. No spinal canal stenosis. Procedure Note Velma Solano MD - 02/19/2025 PROCEDURE: Lumbar spine MRI INDICATION: Pain TECHNIQUE: Multiplanar, multisequence MRI of the Lumbar spine without andwith contrast. 20 mL Dotarem injected intravenously without complicationfrom a 20 mL vial COMPARISON: 06/29/2024 FINDINGS: 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 Lumbar lordosis is maintained. Dextroconvex thoracolumbar curvature isunchanged. No fracture or suspicious marrow replacing lesion. Multilevel degenerative loss of normal disc height and signal withassociated degenerative endplate spurring. Lower lumbar predominant degenerative facet arthritis, most pronounced onthe right at L4-5 and L5-S1, similar compared to prior. Conus medullaris is normal and terminates at L1-2. No epidural collectionor mass is seen within the spinal canal. No abnormal enhancement. Paraspinal muscles are within normal limits. Bilateral renal cysts. Findings by level: L1-2: No foraminal or spinal canal stenosis. L2-3: No foraminal or spinal canal stenosis. L3-4: Bilateral facet arthropathy ligamentum flavum thickening. Diffusedisc bulge with endplate spurring, eccentric to the left. Superimposedsmall left far lateral protrusion is unchanged. Moderate foraminalstenosis bilaterally, left greater than right. L4-5: Diffuse disc bulge, eccentric to the right, with endplate spurring.Superimposed right paracentral/foraminal protrusion is unchanged. Rightgreater than left facet arthropathy. Right laminotomy. Severe right andmild left foraminal stenosis, unchanged. Mild spinal canal stenosis witheffacement of the right subarticular zone, unchanged. L5-S1: Diffuse disc bulge with right greater than left facet arthropathy.Moderate right and mild left foraminal stenosis. No spinal canalstenosis. 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 Degenerative and postsurgical changes throughout the lumbar spine, similarcompared to 06/29/2024 -------- FINAL REPORT -------- Dictated By: VELMA SOLANO Dictated Date: 02/19/2025 19:55 ET Assigned Physician: VELMA SOLANO Reviewed and Electronically Signed By: VELMA SOLANO Signed Date: 02/19/2025 20:07 ET Workstation ID: [id number] Transcribed By: Self Edit Transcribed Date: 02/19/2025 19:55 ET Kevin LOPEZ IMG MRI PROCEDURES Final Result * Depression Screening [facility]04[facility]02/2024) [facility] Depression Screening Abstracted Result [facility] Historical Provider HEALTH MAINTENANCE Final Result * Colonoscopy (02/08/2024) [facility] Colonoscopy No interpretation , Abstracted Anatomical Region Laterality Modality Other [facility] Provider HEALTH MAINTENANCE Final Result * Lipid panel (11/25/2022) [facility] LDL/HDL Ratio 2 0 - 4 Triglycerides 124 0 - 150 mg/dL Cholesterol 154 0 - 200 mg/dL HDL 68 >=40 mg/dL LDL Cholesterol 62 0 - 100 mg/dL Blood Venous blood specimen / Unknown Historical Provider LAB BLOOD ORDERABLES Veronica l Result * Hepatitis C Screening (09/04/2002) [facility] Hepatitis C Screening Abstracted [facility] Provider HEALTH MAINTENANCE Final Result from Last 3 Months or Most Recently Relevant to Health Maintenance Insurance [employer] MEDICARE ADVANTAGE MEDICAID - [place] Care Teams Dust Box Worker Relationship Specialty Start Date End Date Anusha Barry MD [address] [facility] [address] [place] [address] PCP - General Internal Medicine 06/19/24
--- NOTE | 2025-03-08 16:41 | HO.SPINEOV ---
Intake Visit Reasons: Discuss surgical options Intake Note: Ms. Smith is here today to discuss surgical options. Container Washer Required: No Allergies dimethyl fumarate (From Tecfidera) Allergy (Severe, Verified 02/08/24 12:30) Hives, SOB glatiramer (copolymer 1) (From Copaxone) Allergy (Severe, Verified 02/08/24 12:30) Anaphylaxis Interferons Allergy (Severe, Verified 02/08/24 12:30) Hives meperidine (Demerol) Allergy (Severe, Verified 02/08/24 12:30) hives natalizumab (From Tysabri) Allergy (Severe, Verified 02/08/24 12:30) Hives ocrelizumab (From Ocrevus) Allergy (Severe, Verified 02/08/24 12:30) Anaphylaxis shellfish derived Allergy (Severe, Verified 02/08/24 12:30) Anaphylaxis sulfamethoxazole (From BACTRIM) Allergy (Severe, Verified 02/08/24 12:30) HIVES trimethoprim (From BACTRIM) Allergy (Severe, Verified 02/08/24 12:30) HIVES banana Allergy (Intermediate, Verified 02/08/24 12:30) itchy mouth bupivacaine (From Marcaine) Allergy (Intermediate, Verified 02/08/24 12:30) Blister celecoxib (From CELEBREX) Allergy (Intermediate, Verified 02/08/24 12:30) HIVES darnell (cherries) Allergy (Intermediate, Verified 02/08/24 12:30) itchy mouth chlorzoxazone (Parafon Forte DSC) Allergy (Intermediate, Verified 02/08/24 12:30) hives latex Allergy (Intermediate, Verified 02/08/24 12:30) Hives metoclopramide (Reglan) Allergy (Intermediate, Verified 02/08/24 12:30) hives morphine (MORPHINE) Allergy (Unknown, Verified 02/08/24 12:30) HIVES pentazocine (Talwin) Allergy (Unknown, Verified 02/08/24 12:30) hives Sulfa (Sulfonamide Antibiotics) Allergy (Unknown, Verified 02/08/24 12:30) hives gabapentin Adverse Reaction (Intermediate, Verified 02/08/24 12:30) Hallucinations DISOLVABLE SUTURES Adverse Reaction (Intermediate, Uncoded 02/06/24 15:09) SWELLING, sutures don't dissolve Assessment & Plan Assessment & Plan (1) Lumbar radiculopathy: Code(s): M54.16 - Radiculopathy, lumbar region Category: Medical (2) Neural foraminal stenosis of lumbar spine: Code(s): M48.061 - Spinal stenosis, lumbar region without neurogenic claudication Category: Medical Plan Dear colleague, On 03/08/2025, I saw for follow-up Olivia Smith. She continues to complain of severe pain radiating from the right side of her back to the front of her thigh. The pain is constant and unbearable. The pain shoots like electricity. On exam, the knee reflexes absent on the right side. There is hypoesthesia of the L4 dermatome. A repeat MRI of the lumbar spine with contrast of 02/15/2025 at [facility] shows ongoing right left L4 foraminal stenosis. In summary, this patient is suffering from a right L4 radiculopathy due to severe L4 neuroforaminal stenosis. At this point, I think she needs a facetectomy to make sure there is absolutely no question about compression of the nerve followed by L3-4 instrumentation unilaterally. I told her that there is a possibility that the nerve just will not recover despite adequate surgeries, which will make her a candidate for a spinal cord stimulator. However, before we go that route, I would offer her the surgery mentioned above. She will be scheduled for 04/24/2025. I spent 40 minutes in his consult reviewing imaging and discussing plan of care. Selwyn William MD, PhD Spine Fellowship Trained Neurosurgeon Director, [facility] Coding Level of Care Code Est Pt Level 5 (11297) Diagnoses Lumbar radiculopathy M54.16 Neural foraminal stenosis of lumbar spine M48.061
== END 2025-03-11 08:05 | disposition home or self-care (01) ==
LOC: HO.HNS 15:20
PROVIDERS: PCP Internal Medicine; Visit Provider Neurological Surgery
DX: M54.16 Radiculopathy, lumbar region (principal); M48.061 Spinal stenosis, lumbar region without neurogenic claudication
CPT/HCPCS: 99215

== ENCOUNTER → 2025-03-08 15:19 | Outpatient (BNVA) | payer MEDICARE, SELFPAY | PROVIDERS: PCP Internal Medicine; Visit Provider Neurological Surgery | DX: M48.061 Spinal stenosis, lumbar region without neurogenic claudication (principal); M54.16 Radiculopathy, lumbar region | CPT/HCPCS: 99212 ==

== ENCOUNTER 2025-05-01 10:07 | Inpatient (IN) | payer MEDICARE, SELFPAY ==
--- OUTSIDE RECORDS SUMMARY | 2024-02-08 06:00 | XMS_ITS ---
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 Name Role Phone HarjitmiriAnusha Primary Care Provider Rafat Jose Unavailable [phone] Problems Problem Type SNOMED Code ICD Code Onset Dates Problem Status W/U Status Risk Notes Problem Diverticular disease of colon (969198857) Diverticulosis of large intestine without perforation or abscess without bleeding (K57.30) Active confirmed Problem Gastritis (9950640) Gastritis (K29.70) Active confirmed Encounters Encounter Location Date Provider Diagnosis [facility] Out[facility] [address], [place] [id number] 02/08/2024 Rafat Fernandez Colon polyps K63.5 ; Heme + stool R19.5 ; Diverticulosis of large intestine without perforation or abscess without bleeding K57.30 ; Other hemorrhoids K64.8 ; 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 ; Gastritis K29.70 ; Hiatal hernia K44.9 and Diarrhea R19.7 Assessments Encounter Date Diagnosis (ICD Code) Assessment Notes Treatment Notes Treatment Clinical Notes Section Notes 02/08/2024 Colon polyps (ICD-10 - K63.5) 02/08/2024 Heme + stool (ICD-10 - R19.5) 02/08/2024 Diverticulosis of large intestine without perforation or abscess without bleeding (ICD-10 - K57.30) 02/08/2024 Other hemorrhoids (ICD-10 - K64.8) 02/08/2024 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) 02/08/2024 Gastritis (ICD-10 - K29.70) 02/08/2024 Hiatal hernia (ICD-10 - K44.9) 02/08/2024 Diarrhea (ICD-10 - R19.7) Plan Of Treatment Next Appt Details Provider Name:Rafat Fernandez , 10/02/2025 02:00:00 PM, [address], [address], [place], [address], Progress Notes * LORENA ROLLINS EDOB: (69 yo F)Acc No.[id number]:02/08/2024 EGD and COL/MAC Patient: LORENA PAT Provider: Negro Fernandez MD :1955 A ge:68 Y S ex:Female Date:02/08/2024 Address:[address] [place] [address], [place] [id number] Pcp:Anusha Barry Subjective: * Chief Complaints: * * Medical History: Objective: * Vitals: Assessment: * Assessment: 1. C olon polyps - K63.5 (Primary) 2 . H raheel + stool - R19.5 ?3. D iverticulosis of large intestine without perforation or abscess without bleeding - K57.30 4 . O ther hemorrhoids - K64.8 5 . 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 G astritis - K29.70 7 . H iatal hernia - K44.9 8 . D iarrhea - R19.7 Plan: * Treatment: * Procedure Codes: 4 5385 LESION REMOVAL COLONOSCOPY, 38201 UPPER GI ENDOSCOPY, BIOPSY * * The named appointment provid er may or may not be the originator of this progress note, and it is not deemed complete until electronically signed by the appointment provider. Sign off status: Pending * Provider: Negro Fernandez MD Date: 0 02/08/2024 Generated for Briana hyatt/Chai/Rajatitting on: 07/01/2024 11:51 AM EST
[2025-04-12 13:12] VITALS: BP 122/56; PULSE 56; RESP 16; O2SAT 99; BMI 38.4
--- NOTE | 2025-04-12 13:54 | HO.ANESPROP2 ---
Documented by User: Cherie Davidson NP 04/23/25 14:30 HPI - Anesthesia Eval Consult details Narrative: 69yo F for Right L4-5 Facetectomy w/ L3-4 instrumentation unilaterally, 05/01/25 s/p Right L5 Foraminotomy 10/2023 with GA-ETT 7 - Premed with IV Famotadine 20mg, Benadryl 50mg, Solumedrol 125mg for foraminotomy d/t mastocytosis/histamine intolerance. Did very well per patient Multiple Med allergies MS: follows PCP, stable - no increase in symptoms since last back surgery Seizures: Last ~ >1 year ago, lyrica Sjogren's: Dry eye, no tx at this time Mastocystosis/Histamine intolerance: Premed with IV Famotadine 20mg, Benadryl 50mg, Solumedrol 125mg for foraminotomy Platelets low @ 90 with PAT - ? r/t medications, has never had heme w/u. Surgical team aware and OK'd to proceed. Will type and screen DOS. PMFSH Active Problems Active Problems: All Active Problems Neural foraminal stenosis of lumbar spine (Acute) Lumbar radiculopathy (Acute) Status post lumbar spine surgery for decompression of spinal cord (Acute) Lumbar stenosis (Acute) Past Medical History Medical History [place] (hard of hearing) Hx of supraventricular tachycardia Drug intolerance Lumbar disc herniation Tubular adenoma of colon Pernicious anemia Osteopenia Hyperlipidemia Seizures H/O Sjogren's disease Pleural effusion Hx of cardiac disorder History of Meckel's diverticulum High cholesterol Hx of ventricular tachycardia History of Koo's esophagus Chronic back pain Hx of hepatitis Hx of pancreatitis History of pernicious anemia Hx of Clostridium difficile infection IBS (irritable bowel syndrome) Migraine OCD (obsessive compulsive disorder) Muscle spasm Lyme disease (~2014) Depression Multiple sclerosis Hiatal hernia GERD (gastroesophageal reflux disease) Family History Family history of problems with anesthesia: No Surgical History Surgical History Hx of spinal surgery (10/2023) History of laminectomy (11/2022) H/O colonoscopy (01/2024) History of tonsillectomy and adenoidectomy Hx of removal of ovary Hx of hemorrhoidectomy History of ureter repair Hx of hysterectomy Hx of breast biopsy Hx of elbow surgery Hx of cholecystectomy Hx of appendectomy Hx of esophagogastroduodenoscopy (01/2024) History of bowel resection History of Problems with Anesthesia: No Social History Social History Are you a primary nurse wound care to a significant other at home: No Do you presently have visiting nurse or other home services: No Comment: tolerb;e Patient Tobacco Use Status: Current everyday Tobacco user Tobacco use type: Cigarette Cigarettes Per Day: 6 Years Smoked: 40 Patient Interested in Nicotine Replacement: Yes Second Hand Smoke Exposure: No Use of substances other than those prescribed or required for medical reasons: No Substance Use Type Other:: edibles Substance Use Frequency: Daily Have you been hit, kicked, punched, or otherwise hurt by someone within the past year? 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 Allergy/AdvReac Type Severity Reaction Status Date / Time dimethyl fumarate (From Allergy Severe Hives, SOB Verified 04/12/25 13:28 Tecfidera) glatiramer (copolymer 1) Allergy Severe Anaphylaxis Verified 04/12/25 13:28 (From Copaxone) Interferons Allergy Severe Hives Verified 04/12/25 13:28 meperidine (Demerol) Allergy Severe hives Verified 04/12/25 13:28 metoclopramide (Reglan) Allergy Severe hives Verified 04/12/25 13:28 natalizumab (From Tysabri) Allergy Severe Hives Verified 04/12/25 13:28 ocrelizumab (From Ocrevus) Allergy Severe Anaphylaxis Verified 04/12/25 13:28 shellfish derived Allergy Severe Anaphylaxis Verified 04/12/25 13:28 Sulfa (Sulfonamide Allergy Severe hives Verified 04/12/25 13:28 Antibiotics) sulfamethoxazole (From Allergy Severe HIVES Verified 04/12/25 13:28 BACTRIM) trimethoprim (From BACTRIM) Allergy Severe HIVES Verified 04/12/25 13:28 banana Allergy Intermediate itchy mouth Verified 04/12/25 13:28 celecoxib (From CELEBREX) Allergy Intermediate HIVES Verified 04/12/25 13:28 darnell (cherries) Allergy Intermediate itchy mouth Verified 04/12/25 13:28 chlorzoxazone (Parafon Forte Allergy Intermediate hives Verified 04/12/25 13:28 DSC) latex Allergy Intermediate Hives Verified 04/12/25 13:28 morphine (MORPHINE) Allergy Intermediate HIVES Verified 04/12/25 13:28 pentazocine (Talwin) Allergy Intermediate hives Verified 04/12/25 13:28 gabapentin AdvReac Intermediate Hallucinati Verified 04/12/25 13:28 ons DISOLVABLE SUTURES AdvReac Intermediate SWELLING, Uncoded 04/12/25 13:28 sutures don't dissolve Home Medications ?Medication ?Instructions ?Recorded ?Confirmed ?Last Taken ?Type cyanocobalamin (vitamin B-12) 1,000 mcg IM QMONTH 04/01/20 04/12/25 04/21/25 History 1,000 mcg/mL injection kit diphenoxylate-atropine 2.5 1 tab PO DAILY PRN Diarrhea 04/01/20 04/12/25 04/24/25 History mg-0.025 mg tablet nadolol 80 mg tablet (Corgard) 80 mg PO TID 04/01/20 04/12/25 05/01/25 History omeprazole 40 mg capsule,delayed 40 mg PO BEDTIME 04/01/20 04/12/25 04/30/25 History release pregabalin 150 mg capsule (Lyrica) 150 mg PO BID 04/01/20 04/12/25 04/30/25 History sertraline 100 mg tablet (Zoloft) 150 mg PO DAILY 04/01/20 04/12/25 04/30/25 History simvastatin 40 mg tablet 40 mg PO BEDTIME 04/01/20 04/12/25 04/30/25 History tizanidine 4 mg capsule (Zanaflex) 8 mg PO Q6-8H PRN Muscle Spasm 04/01/20 04/12/25 04/30/25 History fzhazhavey-dkkmwjjfenymx-iphyijws 1 tab PO Q4H PRN migraine 11/11/22 04/12/25 Unknown History 50 mg-325 mg-40 mg tablet lutein 20 mg tablet 20 mg PO DAILY 11/11/22 04/12/25 04/30/25 History Lactobacillus acidophilus 250 500 mmu cells PO DAILY 11/02/23 04/12/25 04/30/25 History million cell capsule (Probiotic Acidophilus) acetaminophen 500 mg tablet 1,000 mg PO Q6H PRN Pain 11/02/23 04/12/25 04/30/25 History cholecalciferol (vitamin D3) 50 50 mcg PO DAILY 11/03/23 04/12/25 04/30/25 History mcg (2,000 unit) capsule (Vitamin D3) ondansetron 4 mg disintegrating 4 mg PO Q8H PRN Nausea 11/03/23 04/12/25 03/31/25 History tablet Exam Height,Weight and Vital Signs: Height 5 ft 6 in Weight 107.9 kg Last Vital Signs Pulse 56 04/12/25 13:12 Resp 16 04/12/25 13:12 BP 122/56 L 04/12/25 13:12 Pulse Ox 99 04/12/25 13:12 O2 Del Method Room Air 04/12/25 13:12 Pertinent Lab Results Pertinent Lab Results: 01/2025 outside labs: BMP OK CBC with low plts @ 105 - repeat at PAT Lab Results 04/12/25 Range/Units 14:15 WBC 5.0 (4.8-10.8) X10*3/uL RBC 3.85 L (4.20-5.50) X10*6/uL Hgb 12.6 (12.0-16.0) g/dl Hct 38.3 (37.0-47.0) % MCV 99.5 H (80.0-98.0) fL MCH 32.7 (27.0-33.0) pg MCHC 32.9 (31.0-35.0) g/dl RDW 13.8 (11.0-16.0) % Plt Count 90 L D (160-400) X10*3/uL MPV 11.7 (9.4-12.3) fL Absolute Nucleated RBC 0.000 (0.0-0.012) X10*3/uL Nucleated RBC % (auto) 0.0 (0.0-0.2) /100WBC Narrative Narrative: EKG 10/2023 Vent. Rate : 062 BPM Atrial Rate : 062 BPM P-R Int : 150 ms QRS Dur : 086 ms QT Int : 428 ms P-R-T Axes : 027 016 032 degrees QTc Int : 434 ms Normal sinus rhythm Normal ECG When compared with ECG of 18-NOV-2005 14:31, No significant change was found Airway Mallampati Class: II TM Dist: >3cm Neck ROM: Full Loose/Missing/Broken Teeth: Yes (Right upper molar crowns x broken) Heart: RRR Lungs: CTAB Assessment and Plan Assessment Anesthesia Assessment: Anesthesia Plan Discussed and PAT Visit Final Anesthetic Review Family History of Problems with Anesthesia: No History of Problems with Anesthesia: No Documented by User: Suma Starks MD 05/01/25 08:31 PMF Past Medical History Medical History [place] (hard of hearing) Hx of supraventricular tachycardia Drug intolerance Lumbar disc herniation Tubular adenoma of colon Pernicious anemia Osteopenia Hyperlipidemia Seizures H/O Sjogren's disease Pleural effusion Hx of cardiac disorder History of Meckel's diverticulum High cholesterol Hx of ventricular tachycardia History of Koo's esophagus Chronic back pain Hx of hepatitis Hx of pancreatitis History of pernicious anemia Hx of Clostridium difficile infection IBS (irritable bowel syndrome) Migraine OCD (obsessive compulsive disorder) Muscle spasm Lyme disease (~2014) Depression Multiple sclerosis Hiatal hernia GERD (gastroesophageal reflux disease) Surgical History Surgical History Hx of spinal surgery (10/2023) History of laminectomy (11/2022) H/O colonoscopy (01/2024) History of tonsillectomy and adenoidectomy Hx of removal of ovary Hx of hemorrhoidectomy History of ureter repair Hx of hysterectomy Hx of breast biopsy Hx of elbow surgery Hx of cholecystectomy Hx of appendectomy Hx of esophagogastroduodenoscopy (01/2024) History of bowel resection Social History Social History Are you a primary nurse wound care to a significant other at home: No Do you presently have visiting nurse or other home services: No Comment: tolerb;e Patient Tobacco Use Status: Current everyday Tobacco user Tobacco use type: Cigarette Cigarettes Per Day: 6 Years Smoked: 40 Patient Interested in Nicotine Replacement: Yes Second Hand Smoke Exposure: No Use of substances other than those prescribed or required for medical reasons: No Substance Use Type Other:: edibles Substance Use Frequency: Daily Have you been hit, kicked, punched, or otherwise hurt by someone within the past year? 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 Allergy/AdvReac Type Severity Reaction Status Date / Time dimethyl fumarate (From Allergy Severe Hives, SOB Verified 04/12/25 13:28 Tecfidera) glatiramer (copolymer 1) Allergy Severe Anaphylaxis Verified 04/12/25 13:28 (From Copaxone) Interferons Allergy Severe Hives Verified 04/12/25 13:28 meperidine (Demerol) Allergy Severe hives Verified 04/12/25 13:28 metoclopramide (Reglan) Allergy Severe hives Verified 04/12/25 13:28 natalizumab (From Tysabri) Allergy Severe Hives Verified 04/12/25 13:28 ocrelizumab (From Ocrevus) Allergy Severe Anaphylaxis Verified 04/12/25 13:28 shellfish derived Allergy Severe Anaphylaxis Verified 04/12/25 13:28 Sulfa (Sulfonamide Allergy Severe hives Verified 04/12/25 13:28 Antibiotics) sulfamethoxazole (From Allergy Severe HIVES Verified 04/12/25 13:28 BACTRIM) trimethoprim (From BACTRIM) Allergy Severe HIVES Verified 04/12/25 13:28 banana Allergy Intermediate itchy mouth Verified 04/12/25 13:28 celecoxib (From CELEBREX) Allergy Intermediate HIVES Verified 04/12/25 13:28 darnell (cherries) Allergy Intermediate itchy mouth Verified 04/12/25 13:28 chlorzoxazone (Parafon Forte Allergy Intermediate hives Verified 04/12/25 13:28 DSC) latex Allergy Intermediate Hives Verified 04/12/25 13:28 morphine (MORPHINE) Allergy Intermediate HIVES Verified 04/12/25 13:28 pentazocine (Talwin) Allergy Intermediate hives Verified 04/12/25 13:28 gabapentin AdvReac Intermediate Hallucinati Verified 04/12/25 13:28 ons DISOLVABLE SUTURES AdvReac Intermediate SWELLING, Uncoded 04/12/25 13:28 sutures don't dissolve Home Medications ?Medication ?Instructions ?Recorded ?Confirmed ?Last Taken ?Type cyanocobalamin (vitamin B-12) 1,000 mcg IM QMONTH 04/01/20 04/12/25 04/21/25 History 1,000 mcg/mL injection kit diphenoxylate-atropine 2.5 1 tab PO DAILY PRN Diarrhea 04/01/20 04/12/25 04/24/25 History mg-0.025 mg tablet nadolol 80 mg tablet (Corgard) 80 mg PO TID 04/01/20 04/12/25 05/01/25 History omeprazole 40 mg capsule,delayed 40 mg PO BEDTIME 04/01/20 04/12/25 04/30/25 History release pregabalin 150 mg capsule (Lyrica) 150 mg PO BID 04/01/20 04/12/25 04/30/25 History sertraline 100 mg tablet (Zoloft) 150 mg PO DAILY 04/01/20 04/12/25 04/30/25 History simvastatin 40 mg tablet 40 mg PO BEDTIME 04/01/20 04/12/25 04/30/25 History tizanidine 4 mg capsule (Zanaflex) 8 mg PO Q6-8H PRN Muscle Spasm 04/01/20 04/12/25 04/30/25 History cfxtwdjqzf-feopbxqblabim-bjmudrut 1 tab PO Q4H PRN migraine 11/11/22 04/12/25 Unknown History 50 mg-325 mg-40 mg tablet lutein 20 mg tablet 20 mg PO DAILY 11/11/22 04/12/25 04/30/25 History Lactobacillus acidophilus 250 500 mmu cells PO DAILY 11/02/23 04/12/25 04/30/25 History million cell capsule (Probiotic Acidophilus) acetaminophen 500 mg tablet 1,000 mg PO Q6H PRN Pain 11/02/23 04/12/25 04/30/25 History cholecalciferol (vitamin D3) 50 50 mcg PO DAILY 11/03/23 04/12/25 04/30/25 History mcg (2,000 unit) capsule (Vitamin D3) ondansetron 4 mg disintegrating 4 mg PO Q8H PRN Nausea 11/03/23 04/12/25 03/31/25 History tablet Exam Airway Mallampati Class: II (broken molar right upper) Assessment and Plan Assessment Anesthesia Assessment: Chart Reviewed Final Anesthetic Review NPO: Yes ASA Class: III Final Preanesthetic Review: No Changes in Pt Med Stat, Meds/Allgs Chart Reviewed and Consent Obtained/Reviewed Patient Risk: Intermediate Procedure Risk: Intermediate Anesthetic Plan Anesthetic Plan: GA Disposition: Standard PACU
[2025-04-12 15:16] LABS: Mean Corpuscular Volume 99.5 fL (80.0-98.0); NRBC Abs Auto 0.000 X10*3/uL (0.0-0.012); NRBC Pct Auto 0.0 /100WBC (0.0-0.2); PLT CLUMP 1
[2025-04-12 15:17] LABS: Hematocrit 38.3 % (37.0-47.0); Hemoglobin 12.6 g/dl (12.0-16.0); Mean Corpuscular HGB Conc 32.9 g/dl (31.0-35.0); Mean Corpuscular Hemoglobin 32.7 pg (27.0-33.0); Red Blood Count 3.85 X10*6/uL (4.20-5.50)
[2025-04-12 15:20] LABS: White Blood Count 5.0 X10*3/uL (4.8-10.8)
[2025-04-12 15:43] LABS: Platelet Count 90 X10*3/uL (160-400)
[2025-05-01] VITALS (19 sets, daily range): BP systolic 108–156; BP diastolic 47–95; PULSE 57–89; RESP 9–18; TEMP 36.1–37.1; O2SAT 92–100
--- NOTE | ~2025-05-01 | FL_ITS ---
EXAMINATION: XR FLUOROSCOPY WITH IMAGES CLINICAL INFORMATION: Right L4-5 decompression COMPARISON: None available. TECHNIQUE: Fluoroscopy provided to: Dr. William Fluoroscopy time: 51 seconds DAP: 53 mGycm2 Images: 3 FINDINGS: Intraoperative fluoroscopy and spot images were performed during the procedure in the operating room.. One of the images demonstrates posterior spinal fusion hardware, appearing to be at the L4-5 level. See operative report. FL/FL guidance in OR IMPRESSION: Fluoroscopy provided in the operating room for surgery. See surgical report for details. Electronically signed by: Chucky Carrion MD 05/01/2025 03:44 PM EST
[2025-05-01] MEDS: Lactated Ringers 1,000 ML 100 ML IVCONT (07:50)
[2025-05-01 07:54] LABS: Hematocrit 35.2 % (37.0-47.0); Hemoglobin 11.8 g/dl (12.0-16.0); Mean Corpuscular HGB Conc 33.5 g/dl (31.0-35.0); Mean Corpuscular Hemoglobin 33.4 pg (27.0-33.0); Mean Corpuscular Volume 99.7 fL (80.0-98.0); NRBC Abs Auto 0.000 X10*3/uL (0.0-0.012); NRBC Pct Auto 0.0 /100WBC (0.0-0.2); PLT CLUMP 1; Red Blood Count 3.53 X10*6/uL (4.20-5.50)
--- NOTE | 2025-05-01 08:59 | MHC.SHP ---
Pre-Procedural Eval Section A - 24 Hr Update-Section A only Date of Service: 05/01/25 Section B - Complete if H&P > 30 days Chief Complaint: Spinal stenosis, lumbar region w/o neurogenic Allergies: Allergies Allergy/AdvReac Type Severity Reaction Status Date / Time dimethyl fumarate (From Allergy Severe Hives, SOB Verified 04/12/25 13:28 Tecfidera) glatiramer (copolymer 1) Allergy Severe Anaphylaxis Verified 04/12/25 13:28 (From Copaxone) Interferons Allergy Severe Hives Verified 04/12/25 13:28 meperidine (Demerol) Allergy Severe hives Verified 04/12/25 13:28 metoclopramide (Reglan) Allergy Severe hives Verified 04/12/25 13:28 natalizumab (From Tysabri) Allergy Severe Hives Verified 04/12/25 13:28 ocrelizumab (From Ocrevus) Allergy Severe Anaphylaxis Verified 04/12/25 13:28 shellfish derived Allergy Severe Anaphylaxis Verified 04/12/25 13:28 Sulfa (Sulfonamide Allergy Severe hives Verified 04/12/25 13:28 Antibiotics) sulfamethoxazole (From Allergy Severe HIVES Verified 04/12/25 13:28 BACTRIM) trimethoprim (From BACTRIM) Allergy Severe HIVES Verified 04/12/25 13:28 banana Allergy Intermediate itchy mouth Verified 04/12/25 13:28 celecoxib (From CELEBREX) Allergy Intermediate HIVES Verified 04/12/25 13:28 darnell (cherries) Allergy Intermediate itchy mouth Verified 04/12/25 13:28 chlorzoxazone (Parafon Forte Allergy Intermediate hives Verified 04/12/25 13:28 DSC) latex Allergy Intermediate Hives Verified 04/12/25 13:28 morphine (MORPHINE) Allergy Intermediate HIVES Verified 04/12/25 13:28 pentazocine (Talwin) Allergy Intermediate hives Verified 04/12/25 13:28 gabapentin AdvReac Intermediate Hallucinati Verified 04/12/25 13:28 ons DISOLVABLE SUTURES AdvReac Intermediate SWELLING, Uncoded 04/12/25 13:28 sutures don't dissolve Review of Systems Sugical H&P ROS: Negative: Constitution, Cardiovascular, Respiratory, Neurological, Psychiatric, Hem-Onc, Allergic/Immunologic, Gastrointestinal, Genitourinary, Musculoskeletal, Integumentary, Endocrine and Eyes/Ears/Nose/Throat Exam Surgical H&P Exam: Not Evaluated: HEENT, Not Evaluated: Heart, Not Evaluated: Lungs, Not Evaluated: Extremities, Not Evaluated: Abdomen, Not Evaluated: Skin and Not Evaluated: Neurological Exam Comment: The patient is awake, alert, in no acute distress. Proposed surgical incision site is clean, dry, with no signs of recent trauma. Plan Diagnosis/Plan: Unchanged I have reviewed the history and physical and performed a pertinent physical examination on my patient. No changes have occurred unless specified. Plan remains the same, right-sided L4-5 facetectomy with unilateral instrumentation. Time Spent With Patient Time: Total time managing care of this patient today __7__ minutes.
[2025-05-01 09:04] LABS: Platelet Count 89 X10*3/uL (160-400); White Blood Count 4.9 X10*3/uL (4.8-10.8)
--- NOTE | 2025-05-01 11:24 | P.OP_ITS ---
Operative Note Operative Note Date of Service: 05/01/25 Narrative: Preoperative Diagnosis: Right L4 neural foraminal stenosis Operation: Right L4-5 facetectomy with microscope; right intertransverse process fusion L4-5; unilateral posterior instrumentation L4-5; allograft Consent Informed Consent was obtained for this operation. I have explained the nature, purpose and benefits of the operation. I have discussed the risks and benefit of the operation including possible complications or adverse events with patient/family. Alternative(s) were discussed with the patient with their relative benefits and risks as well as the consequences of not accepting the operation were included in obtaining consent. Surgeon: LAM TUCKER MD, PHD Procedure Assisted By: Kevin Hartman, Merged With [facility] Description of Procedure This 69-year-old female underwent 2 decompressions the past. The 1st decompression relieved the lumbar radiculopathy. Unfortunately, continues to suffering from a right L4 radiculopathy. Repeat imaging shows moderate L4 neuroforaminal stenosis. I offered the patient a complete a right facetectomy followed by an L4-5 instrumented fusion. The procedure complications were explained. The patient was consented. The patient was brought to the operating room and endotracheally intubated. The patient was turned in prone position on Jerome spine frame. Prep and drape was done followed by timeout. A right paramedian incision was made. The following steps were taken in preparation for the pedicle screw placement. The Pediguard tab was used to create a transpedicular trajectory into the vertebral body followed by placement of the K-wire. This was done for the right L4 and L5 pedicles. The K-wires were bent it out of the surgical field. Then the exposure of the L4-5 facet joint started. The patient was morbidly obese and I needed 10 cm blades to get down to the facet joint. This procedure lasted 30 minutes longer just to get the correct exposure due to the patient's body habitus. When the facet joint was finally exposed the microscope was brought in. A high-speed drill was used to drill down the facet from lateral to medial. A nerve hook was used to palpate the foramen after which with a 2. [place] a foraminotomy was done from lateral to medial. The L4 nerve root was not identified and then the facet joint was further taken down flush to superior and inferior wall the L5 and L4 pedicles. This led to a decompression of the L4 nerve root lateral to medial. The microscope was removed. A 6.5 x 45 mm screw was inserted over the K-wires into the bilateral L4 and L5 pedicles. A 45 mm bowen was locked down with locking caps. Final x-rays in AP and lateral projection showed good position of the posterior instrumentation. The transverse processes were decorticated and allograft was laid down in the posterolateral gutter finalize the L4-5 fusion. The physician advertising assistant to call with the procedure. He performed meticulous hemostasis with Surgiflo. The patient was too deep for fascia closure and therefore used an 0 Vicryl to reduce the spaces as much as possible. Finally a 3-0 nylon was used for skin closure. An OpSite with Tegaderm was used to cover the incision. All sponge needle counts were correct. Patient was extubated and transported in stable is to recovery room. Anesthesia: General Estimated Blood Loss (ml): 50 Complications: None Duration of Surgery: 100 Minutes Postoperative Plan: Discharge to home
--- OUTSIDE RECORDS SUMMARY | 2025-05-01 11:51 | XMS_ITS | Patient Health Record ---
Author Organization [facility] Address [address] [place] [id number] Care Team Providers Care Maintenance Assistant Name Role Phone Anusha Barry Primary Care Provider Rafat Jose [phone] Allergies Allergen (clinical drug ingredient) Drug/Non Drug [...] Active Zoloft 150mg Active Simvastatin 40 MG Oral; Duration: 90 Active Krill Oil Not-Taking Cyanocobalamin 1000 MCG/ML INJECT 1 ML INTO THE MUSCLE EVERY 30 DAYS Injection; Duration: 84 Active Lutein 20 For macular degeneration Active tylenol Not-Taking CoQ-10 Not-Taking Zanaflex 8mg Active Vitamin D (Ergocalciferol) 50 MCG (1999 UT) 1 capsule Orally Active Omeprazole 40 MG 1 capsule Orally Once a day; Duration: 90 Active Lomotil 2.5-0.025 MG 1 or 2 Orally Every 6 hours as needed for diarrhea; Duration: 30 days PRN 05/04/2023 Active Immunizations Vaccine [...] Problem Status W/U Status Risk Notes Problem Epigastric pain (84518562) Epigastric abdominal pain (R10.13) Active confirmed Problem Epigastric pain (58308477) Epigastric pain (R10.13) Active confirmed Problem Screening for malignant neoplasm of colon (606490565) Encounter for screening for malignant neoplasm of colon (Z12.11) Active confirmed Problem History of adenomatous polyp of colon (631025238) History of adenomatous polyp of colon (Z86.010) Active confirmed Problem Cystic fibrosis (628375285) 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) Active confirmed Problem Oko's esophagus (634420441) 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) Active confirmed Problem Diverticular disease of colon (832755187) Diverticulosis of large intestine without perforation or abscess without bleeding (K57.30) Active confirmed Problem Elevated liver enzymes level (703389157) Elevated liver function tests (R79.89) Active confirmed Problem Gastroesophageal reflux disease without esophagitis (930527778) Gastroesophageal reflux disease without esophagitis (K21.9) Active confirmed Problem Gastritis (3650264) Gastritis (K29.70) Active c onfirmed Problem Right upper quadrant pain (550028888) Abdominal pain, right upper quadrant (R10.11) Active confirmed Problem Koo esophagus (794061782) Koo esophagus (K22.70) Active confirmed Problem Right upper quadrant pain (206075590) RUQ abdominal pain (R10.11) Active confirmed Problem Gastric ulcer (809535593) Gastric ulcer (K25.9) Active confirmed Problem Koo's esophagus (059740541) Koo''s esophagus without dysplasia (K22.70) Active confirmed Problem Abnormal feces (160035268) Positive colorectal cancer screening using Cologuard test (R19.5) Active confirmed Problem Gastroesophageal reflux disease (disorder) (184909498) Chronic GERD (K21.9) Active confirmed Vital Signs Blood pressure diastolic 11 mm Hg 10/02/2024 Height 66 in 10/02/2024 Blood pressure systolic 111 mm Hg 10/02/2024 Weight 229 lbs 10/02/2024 BMI 36.96 kg/m2 10/02/2024 Encounters Encounter Location Date Provider Diagnosis [facility] [address] [place] [phone] 10/02/2024 Rafat Fernandez Gastroesophageal ref lux disease without esophagitis K21.9 ; Koo's esophagus without dysplasia K22.70 ; Encounter for screening for malignant neoplasm of colon Z12.11 ; History of adenomatous polyp of colon Z86.010 and Elevated liver function tests R79.89 [facility] [address] [place] [phone] 10/02/2024 Rafat Fernandez Assessments Encounter Date Diagnosis [...] Name:Rafat Fernandez , 10/02/2025 02:00:00 PM, [address] [facility], [address], [place], [address], Insurance Providers Payer Name Payer Address Payer Phone Subscriber Number Group Number Insured Name Patient Relationship to Insured Coverage Start Date Coverage End Date [facility] [address] [place], [place] [id number] OLIVIA ROLLINS Self - patient is the insured MEDICAID OF [employer] [address] [place] [address] [id number] OLIVIA ROLLINS Self - patient is the insured Medical (General) History Medical History History ICD Code MULTIPLE SCLEROSIS-Dr. Shireen fatima--has muscle spasms and receives Botox Q 3 months Hyperlipidemia Gastroesophageal reflux dise ase (GERD) with Koo's esophagus- EGD in 08/20087090-dmt-fjyfh HH--no dysplasia; gastritis-no H.pylori; duodenal bx neg for celiac disease Irritable bowel syndrome--predominantly diarrhea Tachycardia-SVT/PVC's- - on Corgard Depression/OCD Migraines Pernicious anemia Denies ID,DM,CVA,Lung disease,renal dise ase Colonoscopy in 08/2008-1 small [...] to ? of CBD stones/sludge- MRCP at [facility] in 05/2014 after the episode of pain revealed a common bile duct of 10 mm but without any stones and normal appearing pancreas--we presumed that she passed a small stone or sludge and she did not have an ERCP Fibromyalgia She describes treatment for chronic Lyme 's disease Elevated LFTs with a negativ e workup in May 2014 including viral serologies, iron studies, xwihb-0-eeotguveudr level, and autoimmune studies Upper endoscopy in [...]
--- OUTSIDE RECORDS SUMMARY | 2025-05-01 11:51 | XMS_ITS | Clinical Summary ---
Author Organization [facility] Address [address] [place] [address] Care Team Providers Care Digital Marketing Executive Name Role Phone Anusha Barry MD Primary Care Provider [phone] Allergies Active Allergy Reactions Criticality Noted Date [...] 0 11/22/2021 Active ergocalciferol (VITAMIN D2) capsule 93722 units TAKE 1 CAPSULE BY MOUTH 1 [...] age to complete this topic Care Teams Digital Marketing Executive Relationship Specialty Start Date End Date Anusha Barry MD [address] [facility] [address] [place] [address] PCP - General Internal Medicine 10/23/20
--- OUTSIDE RECORDS SUMMARY | 2025-05-01 11:51 | XMS_ITS | Clinical Summary ---
Author Organization [facility] Address [address] [place] [address] Care Team Providers Care Firmware Developer Name Role Phone Anusha Barry MD Primary Care Provider [phone] Social History Tobacco Use Types Packs/Day Years [...] - 2023-2 5 season) 2025 RSV Vaccine 50 years and old er and Patients (1 - 1-dose 75+ series) 2029 Hepatitis B Vaccines Aged Out No long er eligible based on patient's age to complete this topic Care Teams Firmware Developer Relationship Specialty Start Date End Date Anusha Barry MD [address] [facility] [address] [place] [address] PCP - General
--- OUTSIDE RECORDS SUMMARY | 2025-05-01 11:51 | XMS_ITS | Clinical Summary ---
Author Organization [facility] Address [address] [place] [address] Phone Care Team Providers Care Geothermal Operating Engineer Name Role Phone Anusha Barry MD Primary Care Provider [phone] Allergies Active Allergy Reactions Criticality Noted Date Comments Banana 09/29/2015 Celecoxib 09/29/2015 Dimethyl Fumarate 10/27/2015 Glatiramer 09/29/2015 Glatiramer-Mannitol Interferons 09/29/2015 Meperidine 04/02/2016 Metoclopramide 09/29/2015 Morphine 09/29/2015 Natalizumab 09/29/2015 Other 09/29/2015 Vicryl sutures Pentazocine 09/29/2015 Shellfish Containing Products 2015 Sulfa (Sulfonamide Antibiotics) 09/29/2015 Medications pregabalin (LYRICA) 150 mg capsule Take 1 capsule by mouth twice daily. 180 capsule 1 05/07/2024 Active acetaminophen (TYLENOL) 500 mg tablet 1,000 mg. Prn 04/02/2016 Activ e ascorbic acid (VITAMIN C) 500 mg tablet 500 mg daily. 11/25/2016 Activ e Bacillus coagulans-inuli n 1 billion-250 cell-mg capsule 1-250 mg. Daily 12/08/2017 Active butalbital-acet aminophen-caffe ine (ESGIC) 50-325-40 mg per capsule TAKE 1 TO 2 CAPSULES EVERY 4 HOURS NEEDED 09/29/2015 Active calcium carbonate (Calcium 600) 1,500 mg (600 mg elemental calcium) tablet 600 mg daily. 11/25/2016 Active diphenoxylate-a tropine (LOMOTIL) 2.5-0.025 mg per tablet TAKE 1 TABLET DAILY NEEDED. Must make appt. for more refiils. 09/29/2015 Active EPINEPHrine (EpiPen 2-Justino) 0.3 mg/0.3 mL injection INJECT INTO THE SKIN NEEDED FOR OTHER 03/08/2021 Active insulin syringe-needle U-100 (BD Insulin Syringe) 1 mL 25 x 1 syringe Use one a month for B12 injection,IM 11/24/2022 Active loratadine (CLARITIN) 10 mg tablet Take 1 Tablet by mouth 2 times daily. 04/09/2024 Active lutein 20 mg capsule 20 mg daily. 09/29/2015 Active MAGNESIUM ORAL 200 mg daily. 12/08/2017 Active ondansetron (ZOFRAN) 4 mg tablet 4 mg. Prn Bid -tid 12/08/2017 Active tiZANidine (ZANAFLEX) 4 mg tablet Take 1 Tablet by mouth every 6 hours as needed for Muscle spasms for up to 10 days. 05/03/2022 Active sertraline (ZOLOFT) 100 mg tablet Take 1 tablet (100 mg total) by mouth 1 (one) time each day. 135 tablet 4 08/03/2024 Active syringe with needle (Eclipse Syringe) 1 mL 25 gauge x 5/8 syringe Inject 1 Dose under the skin 3 (three) times a day. 100 each 3 01/17/2025 Active cyanocobalamin (VITAMIN B-12) 1,000 mcg/mL injection Inject 1 mL (1,000 mcg total) into the shoulder, thigh, or buttocks every 30 (thirty) days. 3 mL 4 01/28/2025 Active simvastatin (ZOCOR) 40 mg tablet Take 1 tablet by mouth at bedtime. 90 tablet 02/25/2025 Active omeprazole (PriLOSEC) [address] capsule Take 1 capsule by mouth once daily. 90 capsule 03/07/2025 Active nadoloL (CORGARD) 80 mg tablet Take 1 tablet by mouth three times daily. 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 Irritable bowel syndrome 09/29/2015 Encounters Date Type Department Care Team Description 02/15/2025 3:20 PM EDT - 02/15/2025 11:59 PM EDT Hospital Encounter [facility] MRI [address] [place] [address] Radiculopathy, lumbar region Discharge Disposition: Home or Self Care from Last 3 Months Immunizations Immunization Administration Dates Next Due Hepatitis B (Nfbhlul-U-Vxtxp , Recombivax HB-Adult) 19yo and older 09/06/2002 [...] OOPHORECTOMY PROCEDURE: HISTORICAL OOPHORECTOMY BREAST BIOPSY PROCEDURE: SD BIOPSY BREAST OPEN INCISIONAL; COMMENT: open COLONOSCOPY PROCEDURE: HISTORICAL COLONOSCOPY; COMMENT: no report OTHER SURGICAL HISTORY PROCEDURE: ENDOSCOPY, ERCP, REMOVE FOREIGN OBJ; COMMENT: removal of stones CHOLECYSTECTOMY PROCEDURE: SD LAPAROSCOPY SURG CHOLECYSTECTOMY TONSILLECTOMY ADENOIDECTOMY, BILATERAL MYRINGOTOMY AND TUBES PROCEDURE: SD TONSILLECTOMY & ADENOIDECTOMY <AGE 12 APPENDECTOMY PROCEDURE: SD APPENDECTOMY HERNIA REPAIR PROCEDURE: SD RPR 1ST INGUN HRNA AGE 5 MO-5 [...] Record ed Within the last 3 months, dustin resendez many times did you visit the emergency [...] for your loved ones. For example, child care nurse or elderly care for an older adult? [...] Date Recorded What is your living situation? Unrecognized valu e 01/09/2025 Comments Unknown Sex and Gender Information [...] PM EST Office Visit Internal Medicine - [place] [address] [place] [address] Anusha Barry MD [facility] [place] [address] Health Maintenance Due Date Last Done Comments Breast Cancer Screening 1955 Hepatitis B Vaccines (2 of 3 - 19+ 3-dose series) 10/04/2002 09/06/2002 Zoster Vaccines (1 of 2) 2004 Falls Risk Assessment 05/29/2022 Osteoporosis Screening (Bone Density Screening) 05/29/2022 COVID-19 Vaccine ( - season) 2025 Influenza Vaccine (#1) 2025 8, [...] Signed Date: 02/19/2025 20:07 ET Workstation ID: [id number] Transcribed By: Self Edit Transcribed Date: 02/19/2025 [...] Signed Date: 02/19/2025 20:07 ET Workstation ID: [id number] Transcribed By: Self Edit Transcribed Date: 02/19/2025 19:55 ET Kevin LOPEZ IMG MRI PROCEDURES Final Result * Depression Screening (04/02/2024) Depression Screening Abstracted Historical Provider [facility] Final Result * Colonoscopy (02/08/2024) Colonoscopy No interpretation , Abstracted Anatomical Region Laterality Modality Other Historical Provider HEALTH MAINTENANCE Final Result * Lipid panel (11/25/2022) LDL/HDL Ratio 2 0 - 4 Triglycerides 124 0 - 150 mg/dL Cholesterol 154 0 - 200 mg/dL HDL 68 >=40 mg/dL LDL Cholesterol 62 0 - 100 mg/dL Blood Venous blood specimen / Unknown Historical Provider LAB BLOOD ORDERABLES Veronica l Result * Hepatitis C Screening (09/04/2002) Hepatitis C Screening Abstracted Historical Provider HEALTH MAINTENANCE Final Result from Last 3 Months or Most Recently Relevant to Health Maintenance Insurance [employer] MEDICARE ADVANTAGE MEDICAID - [place] Care Teams Geothermal Operating Engineer Relationship Specialty Start Date End Date Anusha Barry MD [address] [facility] [address] [place] [address] PCP - General Internal Medicine 06/19/24
[2025-05-01] MEDS: oxyCODONE HCl Immed Release 5 MG TABLET 10 MG PO (14:08)
--- NOTE | 2025-05-01 14:56 | P.DS_ITS ---
DS: Providers Provider Date of Service: 05/01/25 Date of admission: 05/01/25 10:07 Date of discharge: 05/01/25 Primary care physician: Anusha Barry MD DS: Summary Time Attestation Discharge Coordination Time (in mins): 12 Quality: Safe Use of Opioids Does Pt have an Active Cancer Diagnosis on the Problem List?: No Quality: Stroke Does the patient have a stroke diagnosis?: No Physical Exam Vital Signs: Vital Signs: Last Vital Signs Temp 97.6 F 05/01/25 13:52 Pulse 65 05/01/25 13:52 Resp 17 05/01/25 13:52 BP 138/65 05/01/25 13:52 Pulse Ox 98 05/01/25 13:52 O2 Del Method Nasal Cannula 05/01/25 13:52 O2 Flow Rate 2.0 05/01/25 13:52 BMI result Body Mass Index 38.4 DS: Data Data Completed and Pending Labs on day of discharge: Laboratory Results - last 24 hr 05/01/25 07:46 WBC 4.9 RBC 3.53 L Hgb 11.8 L Hct 35.2 L MCV 99.7 H MCH 33.4 H MCHC 33.5 RDW 14.3 Plt Count 89 L MPV 11.2 Absolute Nucleated RBC 0.000 Nucleated RBC % (auto) 0.0 Blood Type A Positive Antibody Screen NEGATIVE Discharge Plan Discharge Anticipated Discharge Date/Time: 05/01/25 14:57 Patient Disposition: Home, Self-Care Discharge Diagnosis: s/p L4-5 facetectomy with unilateral instrumentation Referrals: Anusha Barry MD [Primary Care Provider, Internal Medicine] - 1 Week Discharge Medications: New oxycodone 5 mg tablet 5 mg PO Q4H PRN (Reason: pain) Qty: 30 0RF Rx Instructions: Partial Fill upon patient request. Continued nadolol [Corgard] 80 mg Tablet 80 mg PO TID sertraline [Zoloft] 100 mg Tablet 150 mg PO DAILY diphenoxylate-atropine 2.5-0.025 mg Tablet 1 tab PO DAILY PRN (Reason: Diarrhea) omeprazole 40 mg Capsule,Delayed Release(Dr/Ec) 40 mg PO BEDTIME simvastatin 40 mg Tablet 40 mg PO BEDTIME tizanidine [Zanaflex] 4 mg Capsule 8 mg PO Q6-8H PRN (Reason: Muscle Spasm) pregabalin [Lyrica] 150 mg Capsule 150 mg PO BID cyanocobalamin (vitamin B-12) 1,000 mcg/mL Kit 1,000 mcg IM QMONTH acetaminophen 500 mg Tablet 1,000 mg PO Q6H PRN (Reason: Pain) Probiotic Acidophilus 250 million cell Capsule 500 mmu cells PO DAILY cholecalciferol (vitamin D3) [Vitamin D3] 50 mcg (2,000 unit) Capsule 50 mcg PO DAILY ondansetron 4 mg Tablet,Disintegrating 4 mg PO Q8H PRN (Reason: Nausea) lnhxyhgorc-fyagqvjxznejb-hcbi 50-325-40 mg tablet 1 tab PO Q4H PRN (Reason: migraine) lutein 20 mg Tablet 20 mg PO DAILY Rx Instructions: give with meal/snack Discharge Orders: Discharge Order (Routine); Ordered 05/01/25 Ordered By: Kevin Hartman Diet: Advance to usual diet Activity on Discharge: As tolerated Stand Alone Forms: Patient Portal Discharge page Print Language: Hungarian Activity Restrictions/Additional Instructions: After your spinal surgery we ask you to observe the following restrictions/guidelines: Activity: It is normal to feel some discomfort as you increase your activity, but that will improve with time. We ask you avoid heavy lifting or acitivities that cause pain. As a general rule, 8lbs is a safe limit for lifting right after surgery. Walk as much as you feel comfortable but not to exhaustion. You will feel extra tired the first few days after surgery. Stay well hydrated. It is OK to walk up and down stairs You may return to driving when you are off narcotics (such as vicodin, oxycodone, dilaudid, etc), and you are back to normal functional capacity. If you have any concerns please check with office before driving. Return to work is specific to each patient and each surgery, so please speak with your doctor/PA at first follow up. Please bring paperwork such as FMLA at that time if you need it filled out. Medications: We recommend you take 500mg Tylenol every 4 hours for the first week after surgery, if you do not have any liver issues and can tolerate this medication. Do not exceed 4,000mg daily. We also recommend you take Ibuprofen 600mg every 8 hours for the first week after surgery starting on post op day 1, ?if you do not have any kidney or sugar control issues and can tolerate this medication. Do not exceed 2,000mg daily. We will give you a short supply of narcotics after surgery (usually one weeks worth). If you need more please call the office but do not use more than prescribed. You will need to give our office 48 hours notice if you need narcotics refilled and we do not fill narcotics on weekends or evenings. If you are on a narcotic, it is a good idea to take a stool softener such as colace or senna to avoid constipation If you take blood thinner such as aspirin, Plavix, Coumadin, Effient, Eliquis etc for conditions such as Afib, DVT, Pulmonary embolus, coronary disease, stents etc please speak with your surgeon about specific details as to when you can resume these medications. You can resume NSAIDs on post op day 1 (eg: Motrin, Naproxen, etc). Follow up: Please call the office, , after surgery to arrange a 3 week follow up for wound check. Wound Care: We closed the skin surface of your incision with a single running suture. This will need to be removed in our office in 10-14 days. You may remove your dressing on the first day after surgery. ?You may ?leave open to air. Please do not remove the steri strips underneath. they will fall off on their own in one week. IT IS NORMAL FOR THE WOUND TO OOZE OR BE BLOODY FOR A FEW DAYS AFTER SURGERY. ?IF THIS HAPPENS JUST PLACE NEW DRESSING OVER IT TO AVOID STAINING CLOTHES. You may shower on post op day # 1 We ask that you do not let the water soak the wound. If it does get wet, just towel dry lightly. Please do not scrub your incision or place any type of chemical/ointment on the wound. No tub baths, pools or jacuzzis for one month. If you have any leaking or redness from your wound, or fevers, please call the office. Care Plan Goals: Return to normal activity as tolerated Health Concerns: None Plan of Treatment: Follow-up in clinic in 2-3 weeks Assessment: Ms. Smith underwent uncomplicated right-sided L4-5 facetectomy with unilateral posterior instrumentation today. She was admitted to the floor for further monitoring, pain management, and neurological evaluation. She is requesting to discharge home, and doing very well after waking up from her surgery. Dr. Candie weinstein has ordered her to be discharged home. We will follow up with her in clinic in 2-3 weeks.
--- NOTE | 2025-05-01 15:13 | PHA.MEDREC ---
Pharmacy Consult ? Medication Reconciliation Pharmacy has reviewed the medication reconciliation done by nursing and also spoke to patient to confirm medication list. Patient confirmed she is taking lomotil as needed, pregabalin 150 mg bid, sertraline 150 mg daily and tizanidine 8 mg at bedtime (on schedule). She said she fills her medications at [facility].
--- NOTE | 2025-05-01 15:58 | MHC.CM.PN ---
Addendum entered by Angie Santacruz 05/01/25 16:13: DP: PT WILL NOT DC THIS EVENING, PT IS HAVING PAIN. RN/AWARE. Original Note: IMM DELIVERED. PT LIVES ALONE AND IS FUNCTIONALLY INDEPENDENT. + DRIVES. NO SERVICES OR DME. + HCP AT HOME. PCP DR. AC DP: PT HAS BEEN MEDICALLY CLEARED FOR DC HOME, NO SERVICES. PT 'S FAMILY WILL TRANSPORT HOME.
[2025-05-02] MEDS: oxyCODONE HCl Immed Release 5 MG TABLET 10 MG PO (02:56)
[2025-05-02 03:53] VITALS: BP 118/58; PULSE 66; RESP 16; TEMP 36.4; O2SAT 95
[2025-05-02 07:13] VITALS: BP 111/56; PULSE 65; RESP 18; TEMP 36.7; O2SAT 95
--- NOTE | 2025-05-02 09:36 | HO.POSTANES ---
Post Anesthesia Evaluation Post Anesthesia Evaluation Date of Service: 05/02/25 Vital Signs: Vital Signs Temp Pulse Resp BP Pulse Ox O2 Del Method 05/02/25 07:13 98.1 F 65 18 111/56 L 95 Room Air 05/02/25 03:53 97.6 F 66 16 118/58 L 95 Room Air Anesthesia: General Endotracheal-GETA Mental Status: Awake Pain Control: Satisfactory Nausea/Vomiting: None Hydration: Adequate Anesthesia-Related Issues: No Anes. Related Issues
--- NOTE | 2025-05-02 09:44 | MHC.CM.PN ---
DP: PT HAS BEEN MEDICALLY CLEARED FOR DC HOME, NO SERVICES. FAMILY WILL TRANSPORT
[2025-05-02 10:00] VITALS: BP 111/56; PULSE 72; RESP 18; TEMP 36.8; O2SAT 95
== END 2025-05-02 10:19 | disposition home or self-care (01) | DRG 451 ==
LOC: HO.SSSA 10:09 → HO.S3 12:12
PROVIDERS: Neurological Surgery; Nurse Practitioner; Admitting Provider Physician Assistant; PCP Internal Medicine; Visit Provider Physician Assistant
PROC: 0SG00A0 Fusion of Lumbar Vertebral Joint with Interbody Fusion Device, Anterior Approach, Anterior Column, Open Approach (ICD-10-PCS; principal; 2025-05-01 09:00)
DX: M48.061 Spinal stenosis, lumbar region without neurogenic claudication (principal); M54.16 Radiculopathy, lumbar region; F17.210 Nicotine dependence, cigarettes, uncomplicated; Z71.6 Tobacco abuse counseling; Z79.899 Other long term (current) drug therapy
CPT/HCPCS: 36415; 85027; 86850; 86900; 86901; C1713; J0131; J0690; J1171; J1200; J1308; J1630; J2003; J2405; J2704; J2919; J3010; L8699

== ENCOUNTER → 2025-05-01 10:07 | Outpatient (BNV) | payer MEDICARE, SELFPAY | PROVIDERS: Admitting Provider Physician Assistant; PCP Internal Medicine; Visit Provider Neurological Surgery | DX: M54.16 Radiculopathy, lumbar region (principal) | CPT/HCPCS: 20930; 22612; 22840; 63047 ==

== ENCOUNTER 2025-05-13 13:33 | Outpatient (AMB) | payer MEDICARE, SELFPAY ==
--- NOTE | 2025-05-13 13:38 | HO.SPINEOV ---
Intake Visit Reasons: Suture Removal Intake Note: Ms. Smith is here today to have her suture's removed. Detective Investigator Required: No Allergies dimethyl fumarate (From Tecfidera) Allergy (Severe, Verified 04/12/25 13:28) Hives, SOB glatiramer (copolymer 1) (From Copaxone) Allergy (Severe, Verified 04/12/25 13:28) Anaphylaxis Interferons Allergy (Severe, Verified 04/12/25 13:28) Hives meperidine (Demerol) Allergy (Severe, Verified 04/12/25 13:28) hives metoclopramide (Reglan) Allergy (Severe, Verified 04/12/25 13:28) hives natalizumab (From Tysabri) Allergy (Severe, Verified 04/12/25 13:28) Hives ocrelizumab (From Ocrevus) Allergy (Severe, Verified 04/12/25 13:28) Anaphylaxis shellfish derived Allergy (Severe, Verified 04/12/25 13:28) Anaphylaxis Sulfa (Sulfonamide Antibiotics) Allergy (Severe, Verified 04/12/25 13:28) hives sulfamethoxazole (From BACTRIM) Allergy (Severe, Verified 04/12/25 13:28) HIVES trimethoprim (From BACTRIM) Allergy (Severe, Verified 04/12/25 13:28) HIVES banana Allergy (Intermediate, Verified 04/12/25 13:28) itchy mouth celecoxib (From CELEBREX) Allergy (Intermediate, Verified 04/12/25 13:28) HIVES darnell (cherries) Allergy (Intermediate, Verified 04/12/25 13:28) itchy mouth chlorzoxazone (Parafon Forte DSC) Allergy (Intermediate, Verified 04/12/25 13:28) hives latex Allergy (Intermediate, Verified 04/12/25 13:28) Hives morphine (MORPHINE) Allergy (Intermediate, Verified 04/12/25 13:28) HIVES pentazocine (Talwin) Allergy (Intermediate, Verified 04/12/25 13:28) hives gabapentin Adverse Reaction (Intermediate, Verified 04/12/25 13:28) Hallucinations DISOLVABLE SUTURES Adverse Reaction (Intermediate, Uncoded 04/12/25 13:28) SWELLING, sutures don't dissolve Assessment & Plan Assessment & Plan (1) S/P spinal fusion: Code(s): Z98.1 - Arthrodesis status Category: Surgical Plan Olivia is a pleasant 69 year old female who underwent Right L4-5 facetectomy with microscope; right intertransverse process fusion L4-5; unilateral posterior instrumentation with Dr. William a few weeks ago. She comes in today for suture removal. She is overall doing well and reports significantly decreased pain since surgery. She is able to complete her ADLs much easier at home compared to preoperatively. Still taking Vicodin and gxnk-jvc-tjjkjyy pain medications very occasionally. She is overall very happy with her procedure. No new neurological deficits. The patient ambulates well and rises from a seated position without difficulty. She tolerated suture removal well, her incision is well approximated and well healing with no signs of erythema or drainage. I would like to follow up with Olivia again in 6 weeks for his 2nd postoperative visit with a set of x-rays. Kevin William MD,PhD [facility] Coding Level of Care Code Global (28019) Diagnoses S/P spinal fusion Z98.1
--- OUTSIDE RECORDS SUMMARY | 2025-05-13 18:21 | XMS_ITS | Clinical Summary ---
Author Organization [facility] Address [address] [place] [address] Phone Care Team Providers Care Retaining Room Cutter Name Role Phone Anusha Barry MD Primary Care Provider [phone] Allergies Active Allergy Reactions Criticality Noted Date [...] each day. 135 tablet 4 5 Active syringe with needle (Eclipse Syringe) 1 mL 25 gauge x 5/8 syringe Inject 1 Dose under the skin 3 (three) times a day. 100 each 3 5 Active cyanocobalamin (VITAMIN B-12) 1,000 mcg/mL injection Inject 1 mL (1,000 mcg total) into the shoulder, thigh, or buttocks every 30 (thirty) days. 3 mL 4 5 Active omeprazole (PriLOSEC) [address] capsule Take 1 capsule by mouth once daily. 90 capsule 5 Active nadoloL (CORGARD) 80 mg tablet Take 1 tablet by mouth three times daily. 270 tablet 5 Active simvastatin (ZOCOR) 40 mg tablet Take 1 tablet by mouth at bedtime. 90 tablet 1 5 Active simvastatin (ZOCOR) 40 mg tablet Take 1 tablet by mouth at bedtime. 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 V24, 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 Irritable bowel syndrome 09/29/2015 Encounters Date Type Department Care Team Description 02/15/2025 3:20 PM EDT - 02/15/2025 11:59 PM EDT Hospital Encounter [facility] MRI [address] [place] [id number] Radiculopathy, lumbar region Discharge Disposition: Home or Self Care from Last 3 Months Immunizations Immunization Administration Dates Next Due Hepatitis B (Bknztsg-G-Afoeh , Recombivax HB-Adult) 19yo and older 09/06/2002 [...] OOPHORECTOMY PROCEDURE: HISTORICAL OOPHORECTOMY BREAST BIOPSY PROCEDURE: OH BIOPSY BREAST OPEN INCISIONAL; COMMENT: open COLONOSCOPY PROCEDURE: HISTORICAL COLONOSCOPY; COMMENT: no report OTHER SURGICAL HISTORY PROCEDURE: ENDOSCOPY, ERCP, REMOVE FOREIGN OBJ; COMMENT: removal of stones CHOLECYSTECTOMY PROCEDURE: OH LAPAROSCOPY SURG CHOLECYSTECTOMY TONSILLECTOMY ADENOIDECTOMY, BILATERAL MYRINGOTOMY AND TUBES PROCEDURE: OH TONSILLECTOMY & ADENOIDECTOMY <AGE 12 APPENDECTOMY PROCEDURE: OH APPENDECTOMY HERNIA REPAIR PROCEDURE: OH RPR 1ST INGUN HRNA AGE 6 MO-5 [...] your loved ones. For example, child care specialist or elderly care for an older adult? [...] PM EST Office Visit Internal Medicine - [place] [address] [place] [address] Anusha Barry MD [facility] [place] [address] Health Maintenance Due Date Last [...] Procedure Name Priority Date/Time Associated Diagnosis Comments EXTERNAL XRAY REPORT 05/01/2025 EXTERNAL XRAY REPORT 05/01/2025 MR LUMBAR SPINE WO AND W CONTRAST Routine 02/15/2025 5:15 PM EDT Radiculopathy, lumbar region DEPRESSION SCREENING Routine 04/02/2024 COLONOSCOPY Routine 02/08/2024 LIPID PANEL Routine 11/25/2022 HEPATITIS C SCREENING Routine 09/04/2002 from Last 3 Months or Most Recently Relevant to Health Maintenance Results * External Xray Report (05/01/2025) Only the most recent of2 resultswithin the time period is included. Anatomical Region Laterality Modality Radiographic Kylah ging us Provider [facility] XR PROCEDURES Final Result * MR Lumbar Spine wo and w [...] Signed Date: 02/19/2025 20:07 ET Workstation ID: [id number] Transcribed By: Self Edit Transcribed Date: 02/19/2025 [...] Signed Date: 02/19/2025 20:07 ET Workstation ID: [id number] Transcribed By: Self Edit Transcribed Date: 02/19/2025 19:55 ET Kevin [facility] IMG MRI PROCEDURES Final Result * Depression Screening (04/02/2024) Depression Screening Abstracted Historical Provider HEALTH MAINTENANCE Final Result * Colonoscopy (02/08/2024) Pathologist [facility] Colonoscopy No interpretation , Abstracted Anatomical Region Laterality Modality Other Historical Provider HEALTH MAINTENANCE Final Result * Lipid panel (11/25/2022) [facility] LDL/HDL Ratio 2 0 - 4 Triglycerides 124 0 - 150 mg/dL Cholesterol 154 0 - 200 mg/dL HDL 68 >=40 mg/dL LDL Cholesterol 62 0 - 100 mg/dL Blood Venous blood specimen / Unknown Historical Provider LAB BLOOD ORDERABLES Veronica l Result * Hepatitis C Screening (09/04/2002) Pathologist [facility] Hepatitis C Screening Abstracted Historical Provider HEALTH MAINTENANCE Final Result from Last 3 Months or Most Recently Relevant to Health Maintenance Insurance [employer] MEDICARE ADVANTAGE MEDICAID - [place] Care Teams Retaining Room Cutter Relationship Specialty Start Date End Date Anusha Barry MD [address] [address] PCP - General Internal Medicine 06/19/24
--- OUTSIDE RECORDS SUMMARY | 2025-05-13 18:21 | XMS_ITS | Clinical Summary ---
Author Organization [facility] Address [address] [place] [address] Care Team Providers Care Narrow Gauge Operator Name Role Phone Anusha Barry MD Primary Care Provider [phone] Allergies Active Allergy Reactions Criticality Noted Date [...] 0 11/22/2021 Active ergocalciferol (VITAMIN D2) capsule 11719 units TAKE 1 CAPSULE BY MOUTH 1 [...] age to complete this topic Care Teams Narrow Gauge Operator Relationship Specialty Start Date End Date Anusha Barry MD [address] [facility] [address] [place] [address] PCP - General Internal Medicine 10/23/20
--- OUTSIDE RECORDS SUMMARY | 2025-05-13 18:21 | XMS_ITS | Clinical Summary ---
Author Organization [facility] Address [address] [place] [address] Care Team Providers Care Supervisor [employer] Name Role Phone Anusha Barry MD Primary Care Provider [phone] Social History Tobacco Use Types Packs/Day Years [...] age to complete this topic Care Teams Supervisor [employer] Relationship Specialty Start Date End Date Anusha Barry MD [address] [facility] [address] [place] [address] PCP - General
== END 2025-05-13 14:09 | disposition home or self-care (01) ==
LOC: HO.HNS 13:33
PROVIDERS: PCP Internal Medicine; Visit Provider Physician Assistant
DX: Z98.1 Arthrodesis status (principal)
CPT/HCPCS: 99024

== ENCOUNTER → 2025-05-13 13:33 | Outpatient (BNVA) | payer MEDICARE, SELFPAY | PROVIDERS: PCP Internal Medicine; Visit Provider Physician Assistant | DX: Z48.02 Encounter for removal of sutures (principal); Z98.1 Arthrodesis status | CPT/HCPCS: 99212 ==